=== PATIENT | female | born 1960 | race Caucasian/White ===

== ENCOUNTER 2016-09-22 17:53 | Inpatient (IN) | payer OTHER ==
[~2016-09-22] VITALS: Ht 167.6 cm; Wt 134.3 kg
[2016-09-22 17:53] VITALS: BP 122/73
[~2016-09-22 17:53] MED LIST: ACCUNEB SO1.25 MG/1; ALL DAY ALLERGY10 M3 PO; AZITHROMYCIN 2250 MG PO; B12INJ IM; BENAZEPRIL-HCT1 EA11 PO; CARISOPRODOL 3350 MG PO; CLEOCIN HCL300 MG PO; CYMBALTA60 MG PO; FUROSEMIDE 20 M20 M1 PO; HYDROCODON-ACE1 EAC4 PO; KLOR-CON 1010 MEQ PO; LYRICA100 MG PO; MUCINEX D TABL1 EAC1 PO; NEURONTIN800 MG PO; TUSSIONEX PENN473 ML PO; ULTRAM 50MG TAB50 MG PO; VALIUM5 MG PO; [UNRECOGNIZED DRUG - OTHER]
[2016-09-22 18:52] LABS: ABSOLUTE NEUTROPHILS 9.1 thou/uL (1.4-8.2); BASOPHILS 0.8 % (0.0-2.0); EOSINOPHILS 0.7 % (0.0-3.0); HEMATOCRIT 35.7 % (37.0-47.0); LYMPHOCYTES 22.5 % (24.0-44.0); MCH 31.2 pg (26.0-34.0); MCHC 33.6 g/dL (28.0-37.0); MCV 92.7 fL (80.0-100.0); PLATELET COUNT 482 thou/uL (150-400); RBC 3.85 mil/uL (4.20-5.00); RDW 14.2 % (10.5-14.5); WBC 13.2 thou/uL (4.0-11.0)
[2016-09-22 18:53] LABS: MANUAL DIFF NO
[2016-09-22 19:01] LABS: CREATININE 0.7 mg/dL (0.6-1.3); POTASSIUM 4.6 mmol/L (3.5-5.1)
[2016-09-22 19:06] LABS: ALBUMIN 2.8 g/dL (3.4-5.0); TOTAL BILIRUBIN 0.3 mg/dL (<0.1-1.0); TOTAL PROTEIN 6.8 g/dL (6.4-8.2)
[2016-09-22] MEDS ORDERED: VENTOLIN HFA 1818 GM INH (20:02)
[2016-09-22] MEDS ORDERED: PRILOSEC 10MG C10 MG PO (20:02)
[2016-09-22] MEDS ORDERED: WELLBUTRIN SR150 MG PO (20:03)
[2016-09-22] MEDS ORDERED: CYMBALTA30 MG PO (20:15)
[2016-09-22] MEDS ORDERED: LATUDA60 MG PO (20:15)
[2016-09-22] MEDS ORDERED: METFORMIN HCL500 MG PO (20:16)
[2016-09-22] MEDS ORDERED: LIPITOR 20 MG T20 M1 PO (20:16)
[2016-09-22 20:22] VITALS: BP 105/79
[2016-09-22 23:58] VITALS: BP 116/67
[2016-09-23 03:48] VITALS: BP 111/65
[2016-09-23 05:32] LABS: ABSOLUTE NEUTROPHILS 9.2 thou/uL (1.4-8.2); BASOPHILS 0.2 % (0.0-2.0); HEMATOCRIT 33.8 % (37.0-47.0); HEMOGLOBIN 11.4 gm/dL (12.0-15.0); LYMPHOCYTES 12.7 % (24.0-44.0); MCH 31.3 pg (26.0-34.0); MCHC 33.6 g/dL (28.0-37.0); MCV 93.3 fL (80.0-100.0); MONOCYTES 1.3 % (1.0-8.0); POLYS 85.8 % (36.0-66.0); RBC 3.62 mil/uL (4.20-5.00); RDW 14.2 % (10.5-14.5); WBC 10.7 thou/uL (4.0-11.0)
[2016-09-23 05:34] LABS: PLATELET COUNT 372 thou/uL (150-400)
[2016-09-23 05:37] LABS: MANUAL DIFF NO
[2016-09-23 05:54] LABS: ALBUMIN 2.6 g/dL (3.4-5.0); CALCIUM 8.5 mg/dL (8.5-10.1); CREATININE 0.8 mg/dL (0.6-1.3); MAGNESIUM 1.7 mg/dL (1.8-2.4); POTASSIUM 3.9 mmol/L (3.5-5.1); TOTAL BILIRUBIN 0.3 mg/dL (<0.1-1.0); TOTAL PROTEIN 6.7 g/dL (6.4-8.2)
[2016-09-23 05:55] LABS: URINE BILIRUBIN NEGATIVE (Negative); URINE BLOOD NEGATIVE (Negative); URINE COLOR YELLOW; URINE GLUCOSE-RANDOM* NEGATIVE (Negative); URINE KETONES NEGATIVE (Negative); URINE LEUKOCYTES-REFLEX NEGATIVE (Negative); URINE PROTEIN (DIPSTICK) NEGATIVE (Negative); URINE SPECIFIC GRAVITY <= 1.005 (1.003-1.035); URINE UROBILINOGEN 0.2 E.U./dl (0.2-1.0)
[2016-09-23 08:00] VITALS: BP 120/77
[2016-09-23 12:00] VITALS: BP 106/66
[2016-09-23 16:00] VITALS: BP 116/73
[2016-09-23 20:00] VITALS: BP 123/60
[2016-09-24 00:27] VITALS: BP 131/82
[2016-09-24 03:50] VITALS: BP 119/76
[2016-09-24 07:15] VITALS: BP 123/81
[2016-09-24 11:48] VITALS: BP 139/79
[2016-09-24 15:58] VITALS: BP 146/72
[2016-09-24 20:10] VITALS: BP 120/60
[2016-09-25 04:00] VITALS: BP 133/85
[2016-09-25 08:30] VITALS: BP 133/76
[2016-09-25] MEDS ORDERED: TESSALON PERLE100 MG PO (10:57)
[2016-09-25] MEDS ORDERED: LEVAQUIN 500 M500 M2 PO (10:58)
[2016-09-25 11:08] VITALS: BP 133/76
[2016-09-25 11:26] VITALS: BP 137/85
[2016-09-25 12:06] VITALS: BP 133/76
== END 2016-09-25 13:45 | disposition home or self-care (01) | DRG 871 ==
LOC: ER 17:53 → 4S 19:31 → EROBS 19:31 → 4S 20:23
PROVIDERS: Nurse Practitioner; Physician Assistant
DX: A41.9 Sepsis, unspecified organism (principal); J18.9 Pneumonia, unspecified organism; E44.0 Moderate protein-calorie malnutrition; Z68.42 Body mass index [BMI] 45.0-49.9, adult; E11.40 Type 2 diabetes mellitus with diabetic neuropathy, unspecified; M17.10 Unilateral primary osteoarthritis, unspecified knee; G89.29 Other chronic pain; M54.5 Low back pain; F32.9 Major depressive disorder, single episode, unspecified; I95.9 Hypotension, unspecified; R26.81 Unsteadiness on feet; E78.5 Hyperlipidemia, unspecified; G47.30 Sleep apnea, unspecified; Z90.49 Acquired absence of other specified parts of digestive tract; Z89.512 Acquired absence of left leg below knee; Z89.511 Acquired absence of right leg below knee; Z88.6 Allergy status to analgesic agent; Z88.0 Allergy status to penicillin; Z88.8 Allergy status to other drugs, medicaments and biological substances; Z91.041 Radiographic dye allergy status; Z87.891 Personal history of nicotine dependence; Z82.49 Family history of ischemic heart disease and other diseases of the circulatory system; Z80.9 Family history of malignant neoplasm, unspecified; Z98.84 Bariatric surgery status; Z79.899 Other long term (current) drug therapy
CPT/HCPCS: 10100

== ENCOUNTER 2018-10-09 13:15 | Inpatient (IN) | payer OTHER ==
[~2018-10-09] VITALS: Ht 167.6 cm; Wt 118.0 kg
[~2018-10-09 13:15] MED LIST changes: +CYMBALTA30 MG PO; +LATUDA60 MG PO; +LEVAQUIN 500 M500 M2 PO; +LIPITOR 20 MG T20 M1 PO; -LYRICA100 MG PO; +LYRICA150 MG PO; +METFORMIN HCL500 MG PO; +PRILOSEC 20 MG20 MG PO; +TESSALON PERLE100 MG PO; +VENTOLIN HFA 1818 GM INH; +WELLBUTRIN SR150 MG PO
[2018-10-09 13:22] VITALS: BP 161/94
[2018-10-09 14:00] LABS: ABSOLUTE NEUTROPHILS 7.2 thou/uL (1.4-8.2); BASOPHILS 0.7 % (0.0-2.0); EOSINOPHILS 0.5 % (0.0-3.0); HEMATOCRIT 37.5 % (37.0-47.0); HEMOGLOBIN 12.5 gm/dL (12.0-15.0); LYMPHOCYTES 23.9 % (24.0-44.0); MCH 31.3 pg (26.0-34.0); MCHC 33.4 g/dL (28.0-37.0); MCV 93.8 fL (80.0-100.0); MONOCYTES 6.7 % (1.0-8.0); PLATELET COUNT 360 thou/uL (150-400); POLYS 68.2 % (36.0-66.0); RDW 14.2 % (10.5-14.5); WBC 10.6 thou/uL (4.0-11.0)
[2018-10-09 14:02] LABS: ANION GAP 9 mmol/L (7-16); BUN 23 mg/dL (7-18); CALCIUM 9.5 mg/dL (8.5-10.1); CHLORIDE 98 mmol/L (98-107); CO2 30 mmol/L (21-32); CREATININE 1.1 mg/dL (0.6-1.0); GLUCOSE 150 mg/dL (74-106); POTASSIUM 4.4 mmol/L (3.5-5.1); SODIUM 137 mmol/L (136-145)
[2018-10-09 14:11] LABS: ALBUMIN 3.4 g/dL (3.4-5.0); SGOT 16 U/L (15-37); SGPT 18 U/L (30-65); TOTAL BILIRUBIN 0.2 mg/dL (<0.1-1.0); TOTAL PROTEIN 7.3 g/dL (6.4-8.2); TROPONIN-I <0.06 ng/mL (<0.06)
[2018-10-09 15:31] VITALS: BP 142/88
[2018-10-09] MEDS ORDERED: CYMBALTA30 MG PO (16:15)
[2018-10-09] MEDS ORDERED: LATUDA120 MG PO (16:16)
[2018-10-09] MEDS ORDERED: METFORMIN HCL1000 MG PO (16:16)
[2018-10-09] MEDS ORDERED: NORCO 10-325 T1 EACH PO (16:18)
[2018-10-09] MEDS ORDERED: SYNTHROID125 MC1 PO (16:18)
[2018-10-09] MEDS ORDERED: FLONASE 0.05%50 MCG NASAL (16:21)
[2018-10-09] MEDS ORDERED: VENTOLIN HFA 1818 GM INH (16:21)
[2018-10-09] MEDS ORDERED: PAXIL10 MG PO (16:22)
[2018-10-09] MEDS ORDERED: VITAMIN B-1100 M1 PO (16:30)
[2018-10-09] MEDS ORDERED: FISH OIL 1,001000 M2 (16:30)
[2018-10-09] MEDS ORDERED: CO Q-10200 MG PO (16:31)
[2018-10-09] MEDS ORDERED: NEPHROCAPS SOFT1 CAP PO ×2 (16:31→20:01)
[2018-10-09] MEDS ORDERED: CENTRUM SILVER1 EAC4 PO (16:33)
[2018-10-09] MEDS ORDERED: MELATONIN5 M1 PO (16:34)
[2018-10-09] MEDS ORDERED: ZINC50 MG PO (16:34)
[2018-10-09] MEDS ORDERED: MAGNESIUM400 MG PO (16:34)
[2018-10-09] MEDS ORDERED: DIPHENHIST50 MG PO (16:35)
[2018-10-09 16:56] VITALS: BP 134/79
--- NOTE | 2018-10-09 19:25 | NUR ---
report received from Sarah/rn in er @ 1600. pt received to 3West room 358. pt w/ powerchair & 2 le prostetics at bs. pt on room air and denies soa. pt denies any co of chest pain at this time. pt oriented to room, bed controls, meal times and staff 12 hours shifts. ivf's begun to iv access #20 to rt lateral ac region w/o concern or irritation at this time. pt noted to swallow pills w/o difficulty. pt refused dinner due to not hungry and did not like what was being served. pt requires prescription glasses (her mother brought them to her) to see distance. pt wt obtained and she was informed of current wt, she was happy as she stated she has lost ~30#.
[2018-10-09 20:00] VITALS: BP 126/76
[2018-10-09] MEDS ORDERED: VITAMIN E400 UNIT PO (20:00)
[2018-10-09] MEDS ORDERED: CALCIUM 600 +1 EAC1 PO (20:01)
[2018-10-09] MEDS ORDERED: VITAMIN D5000 UNIT PO (20:02)
[2018-10-09] MEDS ORDERED: TURMERIC500 M2 PO (20:03)
[2018-10-09] MEDS ORDERED: VITAMINC500 PO (20:03)
[2018-10-10 00:05] VITALS: BP 124/80
[2018-10-10 04:18] VITALS: BP 134/79
[2018-10-10 05:50] LABS: ABSOLUTE NEUTROPHILS 6.8 thou/uL (1.4-8.2); BASOPHILS 0.7 % (0.0-2.0); EOSINOPHILS 0.6 % (0.0-3.0); HEMATOCRIT 35.1 % (37.0-47.0); HEMOGLOBIN 11.9 gm/dL (12.0-15.0); LYMPHOCYTES 20.7 % (24.0-44.0); MCH 31.4 pg (26.0-34.0); MCHC 33.9 g/dL (28.0-37.0); MCV 92.4 fL (80.0-100.0); MONOCYTES 7.5 % (1.0-8.0); PLATELET COUNT 306 thou/uL (150-400); POLYS 70.5 % (36.0-66.0); WBC 9.6 thou/uL (4.0-11.0)
--- NOTE | 2018-10-10 05:56 | NUR ---
PT MAKING PROGRESS TOWARDS GOALS. HAS DENIED ANY CHEST PAIN OVERNIGHT. NO SOA REPORTED. O2 AT 1L PER NC PER PT REQUEST FOR SLEEP.
[2018-10-10 05:58] LABS: CALCIUM 9.3 mg/dL (8.5-10.1); CREATININE 0.8 mg/dL (0.6-1.0); MAGNESIUM 1.8 mg/dL (1.8-2.4); POTASSIUM 3.8 mmol/L (3.5-5.1)
[2018-10-10 07:34] VITALS: BP 145/89
--- NOTE | 2018-10-10 08:57 | EKG ---
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: MARCEL : 1960 Requested By: Brittany Berman Order Number: [id number] MD: David Knutson Measurements Intervals [place] Rate: 106 P: AR: QRS: 39 QRSD: 90 T: 19 QT: 330 QTc: 439 Interpretive Statements Sinus tachycardia Atrial premature complexes Compared to ECG 01/11/2002 14:01:41 Atrial premature complexes are now present Electronically Signed On 10-10-2018 8:57:02 CDT by David Knutson [email or web address] ��������������������������������������������� <ELECTRONICALLY SIGNED> ���������������������������������������� By: David Knutson MD, [facility] ��������������������������������������������� 10/10/18 0857 1321 1321 David Knutson MD, FACC /EPI
[2018-10-10] MEDS ORDERED: SYNTHROID125 MC1 PO (09:24)
[2018-10-10] MEDS ORDERED: INGREZZA80 MG PO (09:28)
--- NOTE | 2018-10-10 11:22 | 2DMMODE ---
[facility] [address] [place] [address] 2 D/M-MODE ECHOCARDIOGRAM Name: MARCO FOFANA Room #: 358-P [facility] IN ..#: [id number] ������������� Admission: 10/09/18 ������������� Attend Phys: Jose De Jesus Solano, Discharge: ��� ������������� ��� Date of : 60 Date of Service: 10/10/18 1122 �� Report #: [id number] �������� ��������������������������������������������[id number] THIS REPORT FOR: //name// APPROVED REPORT Study performed: 10/10/2018 09:20:11 EXAM: Comprehensive 2D, Doppler, and color-flow Echocardiogram Patient Location: Bedside Room #: [facility] Status: routine BSA: 2.24 HR: 97 bpm BP: 145/89 mmHg Rhythm: NSR Other Information Study Quality: Technically Limited Technically limited study due to body habitus. Risk Factors: Cardiac Risk Factors: DM Indications Atrial Fibrillation Chest Pain Echo Enhancing Agent Indication: Endocardial border delineation Agent(s) / Amount(s) Used: Optison 3 cc 2D Dimensions LVOT Diam: 20.00 (18-24mm) Ascending Ao: 27.47 (22-36mm) Aortic Root: 30.42 mm Volumes Left Atrial Volume (Systole) Single Plane 4CH: 37.76 mL Single Plane 2CH: 49.13 mL LA ESV Index: 21.00 mL/m2 Aortic Valve AoV Peak Heraclio.: 1.55 m/s AO Peak Gr.: 9.61 mmHg LVOT Max P.47 mmHg LVOT Max V: 1.05 m/s [facility] [place] [address] 2 D/M-MODE ECHOCARDIOGRAM Name: MARCO FOFANA Room #: 358-P [facility] IN .R.#: [id number] ������������� Admission: 10/09/18 ������������� Attend Phys: Jose De Jesus Solano, Discharge: ��� ������������� ��� Date of : 60 Date of Service: 10/10/18 1122 �� Report #: [id number] �������� ��������������������������������������������[id number] CHELA Vmax: 2.15 cm2 Mitral Valve E/A Ratio: 0.7 MV Decel. Time: 191.83 ms MV E Max Heraclio.: 0.71 m/s MV A Heraclio.: 1.04 m/s MV PHT: 55.63 ms IVRT: 65.74 ms TDI E/Lateral E': 5.46 E/Medial E': 7.89 Medial E' Heraclio.: 0.09 m/s Lateral E' Heraclio.: 0.13 m/s Pulmonary Valve PV Peak Heraclio.: 1.11 m/s PV Peak Gr.: 4.89 mmHg Tricuspid Valve RAP Estimate: 7.00 mmHg Left Ventricle The left ventricle is normal size. There is normal LV segmental wall motion. There is normal left ventricular wall thickness. Left ventricular systolic function is normal. The left ventricular ejection fraction is within the normal range. LVEF is 55-60%. Mild diastolic dysfunction is present (impaired relaxation pattern). Right Ventricle The right ventricle is normal size. The right ventricular systolic function is normal. Atria The left atrium size is normal. The right atrium size is normal. Aortic Valve The aortic valve is normal in structure. No aortic regurgitation is present. There is no aortic valvular stenosis. Mitral Valve The mitral valve is normal in structure. There is no mitral valve regurgitation noted. No evidence of mitral valve stenosis. Tricuspid Valve [facility] [address] [place] [address] 2 D/M-MODE ECHOCARDIOGRAM Name: BRIGIDOMARCO S Room #: 358-P ADM IN M.R.#: [id number] ������������� Admission: 10/09/18 ������������� Attend Phys: Jose De Jesus Solano, Discharge: ��� ������������� ��� Date of : 60 Date of Service: 10/10/18 1122 �� Report #: [id number] �������� ��������������������������������������������[id number] The tricuspid valve is normal in structure. There is no tricuspid valve regurgitation noted. Pulmonic Valve Pulmonic valve is not well visualized. There is no pulmonic valvular regurgitation. Great Vessels The aortic root is normal in size. IVC is normal in size and collapses >50% with inspiration. Pericardium There is no pericardial effusion. <Conclusion> The left ventricle is normal size. There is normal left ventricular wall thickness. Left ventricular systolic function is normal. Mild diastolic dysfunction is present (impaired relaxation pattern). The right ventricle is normal size. The left atrium size is normal. The right atrium size is normal. The aortic valve is normal in structure. The mitral valve is normal in structure. There is no tricuspid valve regurgitation noted. ��������������������������������������������� <ELECTRONICALLY SIGNED> ���������������������������������������� By: Clarence Hernandez MD ��������������������������������������������� 10/10/181121 21 21 Clarence Hernandez MD /INF
--- NOTE | 2018-10-10 14:04 | NUR ---
ASSESSMENT: CM REVIEWED CHART AND MET WITH PATIENT AT THE BEDSIDE. PT IS ALERT AND ORIENTED X4. PT WAS ADMITTED WITH NEW ONSET OF AFIB. PT REPORTS SHE LIVES AT HOME WITH HER MOTHER IN A HOUSE. PT REPORTS THAT SHE HAS A RAMP TO ENTER AND NO STEPS ONCE INSIDE. PT HAS A MOTORIZED WHEELCHAIR AND REPORTS THAT SHE IS ABLE TO TRANSFER HERSELF. PT REPORTS HAVING GRAB BARS IN THE SHOWER AND A SHOWER CHAIR AND REPORTS BEING ABLE TO SHOWER INDEPENDENTLY. PT REPORTS SHE HAS HAD HH IN THE PAST AND THINKS IT WAS [facility] BUT IS NOT FOR SURE. CM DISCUSSED ROLE. PT DOES NOT ANTICIPATE HAVING ANY NEEDS AT DISCHARGE. CM WILL CONTINUE TO FOLLOW TO ASSIST NEEDED.
[2018-10-10 16:30] VITALS: BP 120/66
--- NOTE | 2018-10-10 17:16 | NUR ---
PT REQUEST TO USE BEDPAN, NURSE PLACED PT ON BEDPAN WITH CHUX, BEDPAN SUCTIONED TO PT COCCYX LEAVING A LARGE BLOOD BLISTERED/HICKEY PATTERN ON RIGHT CHEEK. PICTURE DOCUMENTED, WOUND CARE NURSE SUSAN SEEN IN HALLWAY, SHOWED HER PICTURE, SHE SAID USE BARRIER CREAM AND NO NEED TO CONSULT WOUND CARE SERVICES AT THIS TIME.
[2018-10-10 20:16] VITALS: BP 110/67
[2018-10-11 04:15] VITALS: BP 101/64
--- NOTE | 2018-10-11 06:22 | NUR ---
PT MAKING PROGRESS TOWARDS GOALS. HAS DENIED ANY CHEST PAIN OVERNIGHT. LORTAB GIVEN FOR GENERALIZED PAIN. SEE CHARTING.
[2018-10-11 07:20] VITALS: BP 107/68
--- NOTE | 2018-10-11 08:20 | EKG ---
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 : 1960 Requested By: David Knutson Order Number: [id number] MD: Ernesto Snow Measurements Intervals [place] Rate: 94 P: 16 AL: 111 QRS: 35 QRSD: 97 T: 19 QT: 348 QTc: 436 Interpretive Statements Sinus tachycardia Atrial premature complex Borderline short AL interval Minimal ST depression Compared to ECG 01/11/2002 14:01:41 Atrial premature complex(es) now present ST (T wave) deviation now present Sinus rhythm no longer present Electronically Signed On 10-11-2018 8:19:56 CDT by Ernesto Snow [email or web address] ��������������������������������������������� <ELECTRONICALLY SIGNED> ���������������������������������������� By: Ernesto Snow MD ��������������������������������������������� 10/11/18 0819 0750 0750 Ernesto Snow MD /EPI
[2018-10-11] MEDS ORDERED: ELIQUIS5 MG PO (12:40)
[2018-10-11] MEDS ORDERED: METOPROLOL SUCC50 MG PO (12:40)
[2018-10-11 14:48] VITALS: BP 107/68
--- NOTE | 2018-10-11 15:27 | NUR ---
ON-GOING ASSESSMENT: PT HAS ORDERS TO DISCHARGE HOME TODAY TO SELF CARE. PTS MOTHER IS PICKING HER UP. PT REPORTED NO NEEDS.
--- NOTE | 2018-10-11 15:32 | NUR ---
Assumed care of patient at 0700. Vitals have been stable. Alert and oriented x4, denies chest pain, SOB, nausea. Does complain of generalized pain, treated with PRN Arthur with good effect. Incontinent of urine, external female catheter in place with adequate urine output. Marilou-care performed; anti-fungal cream applied to pannus and abdominal folds. Repositioning as patient allows, but refuses many turns. Sitting up to eat. Ready to discharge home. Discharge orders received. Reviewed instructions, new prescriptions, instructions about Synthroid, follow up appointments with patient and mother at bedside. Verbalize understanding. IV and telemetry discontinued. Belongings gathered. Home medications returned to patient. Transferred to private motorized wheelchair and transported patient to private vehicle to [place] home.
--- NOTE | 2018-10-11 16:56 | HC ---
[facility] [place] [address] CONSULTATION Name: MARCO FOFANA Room #: 358-P [facility] IN M.R.#: [id number] Admission: 10/09/18 ������������������ Attend Phys: Jose De Jesus Solano MD Discharge: 10/11/18 ������������������ Date of : 60 Report #: [id number] THIS REPORT FOR: //name// CC: [facility] physician/PCP Jose De Jesus Solano Physician staff DATE OF SERVICE: 10/10/2018 ENDOCRINE CONSULTATION The patient of Dr. Solano, [facility], room 358. SUBJECTIVE: A 57-year-old white female admitted for chest pain and new onset atrial fibrillation. 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 It is not clear whether she received post-treatment radioiodine, but she was begun on thyroid replacement at high dose. Apparently, in an attempt to suppress any remaining potential thyroid malignant tissue, the patient has been on 250 mcg of generic L-thyroxine 5 days per week and 125 mcg twice weekly. It is not clear whether what range the prior thyroid function studies have been in or what the attempted level has been. The patient has been on generic replacement rather than brand name replacement, which will make such suppression more difficult. The patient was admitted as mentioned with chest pain and new onset of atrial fibrillation. Thyroid function studies showed a free T4 that was elevated at 1.7 and a TSH that was suppressed at 0.20. The patient is not on any conflicting thyroid substances and has no apparent history of cardiac arrhythmia. OBJECTIVE: LABORATORY DATA: As above. PHYSICAL EXAMINATION: Obese, 57-year-old white female, in no acute distress. Height is stated to be 5 feet 6 inches; however, the patient has prior lower extremity surgery. Weight 260 pounds, heart rate 102 and regular, blood pressure 145/89. The patient is afebrile. There is no ophthalmopathy. There is no tremor of the outstretched hands. The remainder of the exam is euthyroid. The patient is alert and oriented x 3. The neck shows no evidence of palpable thyroid tissue. ASSESSMENT: 1. Thyroid carcinoma, S/P total thyroidectomy with what is apparently an attempt at suppressive replacement with high dose thyroid hormone due to the patient's obesity. [address] [address] CONSULTATION Name: MARCO FOFANA Room #: 358-P [facility] IN .R.#: [id number] Admission: 10/09/18 ������������������ Attend Phys: Jose De Jesus Solano MD Discharge: 10/11/18 ������������������ Date of : 60 Report #: [id number] 2. 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 PLAN: 1. I have discussed all the above with the patient. 2. Will hold all thyroid replacement for several days and reinitiate replacement on Sunday at only 125 mcg per day continuous. The patient will then need thyroid function reevaluated in approximately 6 weeks and dosage adjusted if necessary. 3. There is some limited evidence that high dose thyroid replacement can offer benefit in thyroid replacement; however, now when it causes cardiotoxicity, attempts at aggressive supression should probably not be re-undertaken in the future as long as the patient's thyroid function remains within normal limits. This may be easier to obtain if patient is allowed to have brand name thyroid replacement rather than continued therapy with generics. 4. 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 Thank you very much for this consultation. I will continue to follow the patient with you for evaluation and treatment of thyroid disease. ��������������������������������������������� <ELECTRONICALLY SIGNED> ���������������������������������������� By: Geremias Brewster MD ��������������������������������������������� 10/11/18 1656 1334 0339 Geremias Brewster MD /nt
== END 2018-10-11 15:37 | disposition home or self-care (01) | DRG 309 ==
LOC: ER 13:15 → EROBS 14:21 → 3W 14:21
PROVIDERS: Nurse Practitioner; Physician Assistant; ADMIT Internal Medicine
DX: I48.0 Paroxysmal atrial fibrillation (principal); N17.9 Acute kidney failure, unspecified; I10 Essential (primary) hypertension; E11.40 Type 2 diabetes mellitus with diabetic neuropathy, unspecified; G89.29 Other chronic pain; M17.0 Bilateral primary osteoarthritis of knee; M54.5 Low back pain; F43.10 Post-traumatic stress disorder, unspecified; F31.9 Bipolar disorder, unspecified; F41.9 Anxiety disorder, unspecified; E89.0 Postprocedural hypothyroidism; M79.7 Fibromyalgia; G47.33 Obstructive sleep apnea (adult) (pediatric); F99 Mental disorder, not otherwise specified; T46.2X5A Adverse effect of other antidysrhythmic drugs, initial encounter; E78.5 Hyperlipidemia, unspecified; Z90.49 Acquired absence of other specified parts of digestive tract; Z95.1 Presence of aortocoronary bypass graft; Z89.512 Acquired absence of left leg below knee; Z89.511 Acquired absence of right leg below knee; Z88.0 Allergy status to penicillin; Z88.8 Allergy status to other drugs, medicaments and biological substances; Z88.6 Allergy status to analgesic agent; Z91.041 Radiographic dye allergy status; Z87.891 Personal history of nicotine dependence; Z82.49 Family history of ischemic heart disease and other diseases of the circulatory system; Z80.9 Family history of malignant neoplasm, unspecified; Z85.850 Personal history of malignant neoplasm of thyroid
CPT/HCPCS: 10879

== ENCOUNTER 2018-10-14 06:35 | Emergency (ER) | payer OTHER ==
[~2018-10-14] VITALS: Ht 167.6 cm; Wt 127.0 kg
[~2018-10-14 06:35] MED LIST changes: +CALCIUM 600 +1 EAC1 PO; +CENTRUM SILVER1 EAC4 PO; +CO Q-10200 MG PO; +DIPHENHIST50 MG PO; +ELIQUIS5 MG PO; +FISH OIL 1,001000 M2; +FLONASE 0.05%50 MCG NASAL; +INGREZZA80 MG PO; +LATUDA120 MG PO; +MAGNESIUM400 MG PO; +MELATONIN5 M1 PO; +METFORMIN HCL1000 MG PO; +METOPROLOL SUCC50 MG PO; +NEPHROCAPS SOFT1 CAP PO; +NORCO 10-325 T1 EACH PO; +PAXIL10 MG PO; +SYNTHROID125 MC1 PO; +TURMERIC500 M2 PO; +VITAMIN B-1100 M1 PO; +VITAMIN D5000 UNIT PO; +VITAMIN E400 UNIT PO; +VITAMINC500 PO; +ZINC50 MG PO
[2018-10-14 08:17] VITALS: BP 99/58
== END 2018-10-14 08:17 | disposition home or self-care (01) ==
LOC: ER 06:35
DX: S39.012A Strain of muscle, fascia and tendon of lower back, initial encounter (principal); F41.9 Anxiety disorder, unspecified; E11.40 Type 2 diabetes mellitus with diabetic neuropathy, unspecified; G89.29 Other chronic pain; F31.9 Bipolar disorder, unspecified; M79.7 Fibromyalgia; Z79.01 Long term (current) use of anticoagulants; Z90.49 Acquired absence of other specified parts of digestive tract; Z87.891 Personal history of nicotine dependence; Z88.1 Allergy status to other antibiotic agents; Z88.0 Allergy status to penicillin; Z88.5 Allergy status to narcotic agent; Z91.041 Radiographic dye allergy status; Z88.8 Allergy status to other drugs, medicaments and biological substances; W18.39XA Other fall on same level, initial encounter; Y93.89 Activity, other specified; Y92.89 Other specified places as the place of occurrence of the external cause; Y99.8 Other external cause status

== ENCOUNTER 2019-07-31 12:36 | Inpatient (IN) | payer OTHER ==
[~2019-07-31] VITALS: Ht 167.6 cm; Wt 113.4 kg
--- NOTE | ~2019-07-31 | HC ---
[facility] [place] [address] CONSULTATION Name: MARCO FOFANA Room #: 450-P ADM IN .R.#: [id number] Admission: 07/31/19 Attend Phys: Concha Bonilla MD Discharge: Date of : 60 Report #: [id number] THIS REPORT FOR: cc: [facility] - Family physician unknown [facility] - Family physician unknown Sathya Starr MD ~ CC: [facility] unknown Concha Bonilla WOUND CARE CONSULTATION PERSONAL PHYSICIAN: Dr. Talamantes. CHIEF COMPLAINT: Lumbar spine wound. HISTORY OF PRESENT ILLNESS: This is a 58-year-old white female who lives in a [place], who states she has had a wound on her lower spine for approximately the past 4 months. The patient has been receiving IV antibiotics as well as wound care at her long-term care facility. The patient states that it started having increased odor and drainage in the past couple of days, which prompted them to send her to the Emergency Department and the patient was admitted for evaluation and treatment of this ulcer. The patient states she thinks it started out as a pressure ulcer and then became infected. The patient is fairly debilitated with bilateral bncxr-xbz-wqpe amputations and states she spends most of her time in bed. The patient states she denies any fevers or chills. The patient denies any other associated wounds. The patient states she lost both her legs secondary to osteomyelitis. PAST MEDICAL HISTORY: Significant for diabetes, diabetic neuropathy, chronic low back pain, bilateral guwpl-ktw-wkyk amputations secondary to osteomyelitis, fibromyalgia, bipolar disease, anxiety. CURRENT MEDICATIONS: Multiple. I reviewed the patient's medication list. DRUG ALLERGIES: Include PERCOCET and IV DYE. SOCIAL HISTORY: The patient lives in a long-term care facility, has a remote history of smoking, drinks alcohol socially. FAMILY HISTORY: Not pertinent to current medical condition. REVIEW OF SYSTEMS: CONSTITUTIONAL: The patient denies fevers or chills. NEUROLOGIC: The patient has chronic generalized weakness, but no isolated weakness in arms or legs. EYES: No complaints. ENT: No complaints. [facility] [address] [place] [address] CONSULTATION Name: MARCO FOFANA Room #: 450-[facility] IN M.R.#: [id number] Admission: 07/31/19 Attend Phys: Concha Bonilla MD Discharge: Date of : 60 Report #: [id number] CARDIAC: The patient denies chest pain, palpitations or lower extremity edema. RESPIRATORY: The patient denies shortness of breath, cough or wheezes. GASTROINTESTINAL: The patient denies nausea, vomiting, abdominal pain. GENITOURINARY: The patient denies urgency or frequency. MUSCULOSKELETAL: The patient has chronic back pain. SKIN: There is a chronic ulcer in the upper lumbar region. PHYSICAL EXAMINATION: VITAL SIGNS: Temperature 36.8, pulse 74, respirations 18, BP 128/65. GENERAL: This is an alert and oriented x 3 white female who has extremely flat affect. HEENT: Normocephalic, atraumatic. Mucous membranes are dry. Pupils are round. Sclerae are white. NECK: Supple. BACK: Nontender. LUNGS: Clear. HEART: Regular. BACK: Evaluation of the back reveals an open wound in the upper lumbar region, which is approximately 4 cm deep. There is significant amount of foul-smelling drainage that appears purulent coming from the ulceration. Marilou-wound is somewhat macerated. There is no significant undermining. There does appear to be some tunneling; however, this is the exam is limited secondary to the patient's pain. There is no palpable bone in the base. ABDOMEN: Soft, nontender. EXTREMITIES: The patient moves the upper extremities without difficulty. Lower extremities, patient has bilateral BKAs without any open ulcerations. NEUROLOGIC: Cranial nerves 2-12 grossly intact. Motor and sensory grossly intact. LABORATORY DATA: White count 8.9, hemoglobin 9.1. Sed rate is 52. BUN 13, creatinine 0.7. Albumin 2.5. CT scan of the lumbar region shows soft tissue inflammation and cellulitis along the L1-L3 level with an area of inflammation that measures 5.9 x 3.2 cm consistent with what they call possible early abscess formation. There are no signs of any osteomyelitis. IMPRESSION: 1. Chronic lumbar wound at L1 through L3 consistent with pressure ulcer stage 3, now infected. 2. Diabetes mellitus. 3. Status post bilateral arwzq-rfk-yppa amputations. 4. Protein-calorie malnutrition -- severe with albumin of 2.5. 5. Generalized debility. 6. History of bipolar disease. PLAN: The patient will have a Dakin's quarter strength wet to dry dressings placed within the lumbar wound twice daily. This will be covered with an ABD. [address] [address] CONSULTATION Name: FOFANAMARCO Room #: 450-P ADM IN M.R.#: [id number] Admission: 07/31/19 Attend Phys: Concha Bonilla MD Discharge: Date of : 60 Report #: [id number] General Surgery will be consulted for debridement of the wound. IV antibiotics have been started. We will continue with these at this time. Wound cultures have been obtained. We will maximize the patient's oral protein supplementation for healing. Continue all other current medications. I appreciate the ability to consult. We will continue to follow the patient. By: [id number] [id number] Sathya Starr MD /nt
[2019-07-31 12:45] VITALS: BP 127/77
[2019-07-31 14:13] LABS: HEMOGLOBIN 10.1 gm/dL (12.0-15.0)
[2019-07-31 14:15] LABS: ABSOLUTE NEUTROPHILS 6.8 thou/uL (1.4-8.2); BASOPHILS 0.9 % (0.0-2.0); EOSINOPHILS 2.6 % (0.0-3.0); LYMPHOCYTES 20.2 % (24.0-44.0); MCHC 31.6 g/dL (28.0-37.0); MCV 88.7 fL (80.0-100.0); MONOCYTES 10.2 % (1.0-8.0); PLATELET COUNT 393 thou/uL (150-400); POLYS 66.1 % (36.0-66.0); RBC 3.61 mil/uL (4.20-5.00); RDW 17.3 % (10.5-14.5); WBC 10.2 thou/uL (4.0-11.0)
[2019-07-31 14:16] LABS: CALCIUM 8.6 mg/dL (8.5-10.1); CREATININE 0.9 mg/dL (0.6-1.0); POTASSIUM 3.7 mmol/L (3.5-5.1)
[2019-07-31 14:22] LABS: ALBUMIN 2.5 g/dL (3.4-5.0); TOTAL BILIRUBIN 0.4 mg/dL (<0.1-1.0); TOTAL PROTEIN 6.4 g/dL (6.4-8.2)
--- NOTE | 2019-07-31 18:59 | NUR ---
REPORT GIVEN TO NIGHT RN
[2019-07-31 20:03] VITALS: BP 135/70
[2019-07-31 20:07] VITALS: BP 113/74
[2019-07-31 21:52] VITALS: BP 121/70
--- NOTE | 2019-08-01 02:59 | NUR ---
Pt admitted to room 450 at 2105 for open, purulent wound on back. Pt also has small area of deep tissue injury on right buttock. Pictures taken and placed in chart. Pt is alert, oriented x4. States back wound was an abscess that has been debrided in the past. Drainage is brown and foul smelling. Marilou-area excoriated but not open. Pt was straight cath'd in ED and had 1000 cc in bladder per report. #16 chinese arita cath placed on admit with immediate return of 250 cc dark ella urine. c/o of pain in back and bilateral hands. Nurse practioner notified of inadequate pain control and orders recieved. Pt resting much more comfortably now.
[2019-08-01 06:24] LABS: HEMATOCRIT 28.7 % (37.0-47.0); HEMOGLOBIN 9.1 gm/dL (12.0-15.0); MCH 27.9 pg (26.0-34.0); MCHC 31.5 g/dL (28.0-37.0); MCV 88.6 fL (80.0-100.0); RBC 3.24 mil/uL (4.20-5.00); RDW 17.2 % (10.5-14.5); WBC 8.9 thou/uL (4.0-11.0)
[2019-08-01 06:35] LABS: CREATININE 0.7 mg/dL (0.6-1.0); POTASSIUM 3.6 mmol/L (3.5-5.1)
[2019-08-01 07:12] VITALS: BP 109/64
[2019-08-01 11:52] VITALS: BP 128/65
--- NOTE | 2019-08-01 13:10 | NUR ---
Nutrition: Pt seen for lumbar wound. Hx DM, bilateral BKA, osteomyelitis, cellulitis, diabetic foot ulcer, deep tissue injury on right buttock.Currently 250#, states she has lost 50# intentionally since December 2018 by decreasing portion sizes. Records show pt reported wt of 280# in September 2018. Lives in a facility, has good appetite, eats protein foods at all meals and is knowledgable about importance of protein for wound healing. No wasting noticed. Good BG control at 103-143 mg/dL. Consider to be low nutrition risk.
--- NOTE | 2019-08-01 16:20 | NUR ---
met with patient who is A/Ox4. She admits with foul smell from wound. Patient is ltc at [facility]. She reports she has been at [place] since December. She reports plan to return at [place]. Patient reports she uses w[facility] at facility not a walker. casemgt updated facility via fax information. Casemgt following.
[2019-08-01 19:19] VITALS: BP 119/69
--- NOTE | 2019-08-01 20:07 | NUR ---
Assumed pt care this am, VS stable no signs or verbalizations of distress noted. Wound care and dressing change done. Seen but ID and surgery, scheduled for debriedment on Sunday. Pt is a bilateral BKA with her prosthesis in the room. Q2 turns done through out the shift. Diet and medications are well tolerated. FC in place, draining bright red urine. POC followed, no signs or verbalizations of distress have been noted. Endorsed to the night nurse.
--- NOTE | 2019-08-02 02:42 | NUR ---
PT CARE ASSUMED WITH PT IN BED WATCHING TV AT 1900.PT ALERT AND ORIENTED.PT IS A KENDRICK BKA WITH PROSTHESIS IN HER ROOM.PT HAS A SINGLE LUME PICC LINE ON THE BENOIT .PT C/O OF PAIN AND PAIN MANAGED WITH HYDROCODONE.PT IS ACCUCHECH ACHS .WOUND DRESSING I/C/D.WILL CONTINUE TO MONITOR PER POC
[2019-08-02 07:30] VITALS: BP 125/68
--- NOTE | 2019-08-02 11:05 | NUR ---
Assumed pt care at 7am.Assessment completed.vss.Pt c/o back pain rated 8/10. Pain med given with other am meds with relief.Assisted with tray setup at breakfast,pt has good appetite.Pt in bed resting without further c/o.Will continue to monitor.
[2019-08-02 14:33] VITALS: BP 119/53
[2019-08-02 19:16] VITALS: BP 123/57
[2019-08-03 06:06] LABS: ABSOLUTE NEUTROPHILS 5.2 thou/uL (1.4-8.2); BASOPHILS 0.8 % (0.0-2.0); EOSINOPHILS 3.7 % (0.0-3.0); HEMATOCRIT 30.6 % (37.0-47.0); HEMOGLOBIN 9.5 gm/dL (12.0-15.0); LYMPHOCYTES 19.2 % (24.0-44.0); MCH 27.7 pg (26.0-34.0); MCHC 31.1 g/dL (28.0-37.0); MCV 89.2 fL (80.0-100.0); MONOCYTES 10.2 % (1.0-8.0); PLATELET COUNT 323 thou/uL (150-400); POLYS 66.1 % (36.0-66.0); RBC 3.43 mil/uL (4.20-5.00); RDW 17.8 % (10.5-14.5); WBC 7.9 thou/uL (4.0-11.0)
[2019-08-03 06:16] LABS: APTT 30.4 Seconds (24.5-32.8); PROTIME 10.1 Seconds (9.3-11.4)
[2019-08-03 06:49] LABS: ALBUMIN 2.1 g/dL (3.4-5.0); CALCIUM 8.3 mg/dL (8.5-10.1); CREATININE 0.7 mg/dL (0.6-1.0); MAGNESIUM 2.2 mg/dL (1.8-2.4); TOTAL BILIRUBIN 0.4 mg/dL (<0.1-1.0); TOTAL PROTEIN 5.9 g/dL (6.4-8.2)
--- NOTE | 2019-08-03 06:49 | NUR ---
Pt. rested quietly during the night when checked on during frequent rounds. She did c/o pain to her back and po pain meds given (see emar) with some relief of pain noted. Bed alarm is on.
[2019-08-03 08:51] VITALS: BP 119/62
[2019-08-03 16:14] VITALS: BP 94/55
[2019-08-03 19:27] VITALS: BP 111/59
--- NOTE | 2019-08-04 05:34 | NUR ---
Pt. rested quietly at intervals during the night when checked on during frequent rounds. She c/o back pain and was given po pain meds (see emar) with some relief noted. Pt. turned and repositioned for comfort. Bed alarm is on.
[2019-08-04 10:53] VITALS: BP 118/105
[2019-08-04 15:00] VITALS: BP 113/59
[2019-08-04 19:39] VITALS: BP 105/59
--- NOTE | 2019-08-04 20:43 | NUR ---
PT A&OX4, VSS, PAIN AT LOWER BACK. PATIENT HAD I&D TODAY, SURGEON STATES DO NOT TOUCH DRESSING UNTIL WOUND CARE SEES PATIENT ON 08/05. DRESSING C/D/I. NO SIGNS OF DISTRESS. WILL CONTINUE TO MONITOR.
--- NOTE | 2019-08-05 02:14 | NUR ---
ASSUMED CARE OF PT AT 1900HRS. PT IS AOX4 AND LETS NEEDS BE KNOWN. FALL PRECAUTION IN PLACE. PT IS POST OP DAY 0. POST OP DRESSSING IS C/D/I. PT PUT ON 1.5L O2 VIA NC AT POST OP AND IS CONTINUED. [place] IN PLACE AND IS PATIENT. ABX TREATMENT CONTINUED. PT REPORTED SOME PAIN AND WAS TREATED WITH PRN PAIN MEDS. PT WAS ABLE TO GET COMFORTABLE AND SLEEP PART OF THE SHIFT. VSS AND NO S/S OF ACUTE DISTRESS. WILL CONTINUE TO MONITOR.
[2019-08-05 07:56] VITALS: BP 111/55
--- NOTE | 2019-08-05 10:36 | NUR ---
Received awake on bed. Due medications given as prescribed, able to swallow meds w/o difficulty. On O2 at 1lpm via nasal cannula. A+Ox4. On regular diet- tolerating well; no nausea, no vomiting and no abdominal pain noted. On blood sugar monitoring- taken and recorded accordingly, with sliding scale insulin prescribed. With arita in place- draining well- output measured and recorded accordingly. With L upper arm single lumen PICC line- intact and flushing well. S/P I&D 07/04, dressing in place, with orders from surgeon to keep dressing in place until Wound team sees patient. With Bilateral BKA, assisted in ADLs. Falls bundles in place.
[2019-08-05 14:14] VITALS: BP 106/61
--- NOTE | 2019-08-05 14:37 | NUR ---
PT IS POST OP DAY 1 FROM I&D. CARE TEAM INDICATED THAT PT IS PROGRESSING TOWARD GOAL OF DC. IT IS ANTICPATED THAT PT WILL DO SKILLED AT [facility] ONCE MEDICALLY STABLE. CLINICAL UPDATES SENT TO FACILITY TODAY. CM TO FOLLOW INDICATED WITH DC PLANNING.
--- NOTE | 2019-08-05 15:44 | NUR ---
WOUND CONSULT; ROUNDING WITH DR VARNER AND SUSAN. THE BACK ABCESS WOUND WAS SURGICALLY DEBRIDED AND CLEAN ENOUGH FOR VAC THERAPY. NO S/S OF INFECTION. RECOMMENDATION; BEGIN VAC THERAPY TODAY PER DR VARNER. AT 125MMHG,CONTINUOUS,BRIDGE XL DISCUSSED WITH JENY
[2019-08-05 19:29] VITALS: BP 99/55
--- NOTE | 2019-08-06 01:32 | NUR ---
PT IS A/O X4.PT CARE ASSUMED WITH PT WATCHING TV.PT HAS A PICC LINE SINGLE LUMEN ON THE BENOIT .PT HAS A WOUND VAC IN PLACE ON BACK PUT FOR BACK ABCESS AFTER I$D.PT C/O PAIN AND HAS SCHEDULED PAIN MEDICATIONA ND HYDROCODONE FOR PAIN MANAGEMENT.PT HAS A MONTAGUE CATHETER .PT IS ACCUCHECK ACHS.WILL CONTINUE TO MONITOR PER POC
[2019-08-06 07:20] VITALS: BP 106/61
--- NOTE | 2019-08-06 12:51 | NUR ---
PT A&OX4, VSS, PAIN IN LOWER BACK. WOUND VAC AND DRESSING ON BACK C/D/I. WOUND VAC RUNNING AT ORDERED RATE, SEROUS DRAINAGE COLLECTED. NO SIGNS OF DISTRESS. WILL CONTINUE TO MONITOR.
[2019-08-06 20:25] VITALS: BP 110/59
--- NOTE | 2019-08-07 03:43 | NUR ---
Pt. rested quietly at intervals during the night when checked on during frequent rounds. She has been given po pain meds (see emar) for c/o back pain with some relief noted. Wound vac is intact to back. Bed alarm is on.
[2019-08-07 07:35] VITALS: BP 105/65
[2019-08-07] MEDS ORDERED: MIRALAX17 GM PO (11:50)
[2019-08-07] MEDS ORDERED: COLACE 100 MG100 MG PO (11:50)
[2019-08-07] MEDS ORDERED: MILK OF MA2400 MG/11 PO (11:50)
[2019-08-07] MEDS ORDERED: NORCO 10-325 T1 EACH PO (11:50)
[2019-08-07] MEDS ORDERED: METFORMIN HCL500 MG PO (11:50)
--- NOTE | 2019-08-07 12:05 | NUR ---
TOMASZ reviewed chart and spoke with nursing and attending physician. Pt is medically stable for discharge back to [facility] today. Will need insurance authorization. PT/OT ordered today to evaluate pt. habitat conservation planner to fax updates. Facility has not submitted for insurance authorization. Will fax therapy evals when available. TOMASZ is following to assist as needed with discharge planning.
[2019-08-07 14:46] VITALS: BP 98/59
--- NOTE | 2019-08-07 17:45 | NUR ---
FAXED CLINICAL UPDATE TO [facility] SPOKE WITH ADM FIGUEROA SHE RECEIVED UPDATE. DP TO FOLLOW.
[2019-08-07 19:32] VITALS: BP 90/60
--- NOTE | 2019-08-07 20:42 | NUR ---
PT A&OX4, VSS, PAIN IN BACK. WOUND VAC RUNNING AT 125, SEROUS DRAINAGE, DRESSING TO BACK C/D/I. NO SIGNS OF DISTRESS. WILL CONTINUE TO MONITOR.
--- NOTE | 2019-08-08 02:58 | NUR ---
Pt. rested quietly at intervals during the night when checked on during frequent rounds. She does c/o back pain and pain meds given (see emar) with some relief noted. Wound vac is dry and intact to her back. Bed alarm is on.
[2019-08-08 08:00] VITALS: BP 109/66
--- NOTE | 2019-08-08 11:19 | NUR ---
Received awake on bed. Due medications given as prescribed, able to swallow meds w/o difficulty. On O2 at 1lpm via nasal cannula- weaning him off. Vital signs stable. On carb controlled diet- tolerating well; no nausea, no vomiting and no abdominal pain noted. On blood sugar monitoring- taken and recorded accordingly; with sliding scale insulin prescribed. With L upper arm PICC line in place- dressing C/D/I, seen by IV nurse this AM. With wound at back- wound vac in place-output measured and recorded accordingly. With arita in place- output measured and recorded accordingly. Possible discharge back to facility today. a/w order and CM instructions re: discharge. Falls bundle in place. Pt refusing to be turned on her sides. Complained of pain, due PRN pain medications given as prescribed.
--- NOTE | 2019-08-08 12:13 | NUR ---
TOMASZ reviewed chart and spoke with nursing and attending physician. Pt is medically stable for discharge to [facility]. party planner faxed clinical/therapy updates to [facility]. Pt will need IV abx at the facility. TOMAZS discussed with ID physician. Awaiting insurance authorization at this time. TOMASZ is following to assist as needed with discharge planning.
[2019-08-08 15:00] VITALS: BP 95/63
--- NOTE | 2019-08-08 15:15 | NUR ---
PT DISCHARGING TODAY TO [facility] FOR [facility]TC FAXED DC ORDERS/SUMMARY TO FACILITY SPOKE WITH MIKE SHE RECEIVED ORDERS AND DOES NOT HAVE A STRETCHER VAN TO TRANSPORT SO ARRANGED TRANSPORT BY STRETCHER VAN WITH [facility] TRIP #[id number] PT WILL NOTIFY FAMILY OF DC AND TIME OF TRANSPORT. UNIT NOTIFIED AND CHART COPY PER US. RN TO CALL REPORT TO [phone].
[2019-08-08] MEDS ORDERED: MOXIFLOXACIN H400 MG PO ×2 (16:20→16:21)
[2019-08-08] MEDS ORDERED: CLEOCIN HCL150 MG PO (16:20)
[2019-08-08] MEDS ORDERED: CULTURELLE KID1 EAC1 PO (16:20)
[2019-08-08 18:53] VITALS: BP 105/53
== END 2019-08-08 19:13 | DRG 853 ==
LOC: ER 12:36 → EROBS 15:58 → 4W 15:58
PROVIDERS: Internal Medicine; Physician Assistant; ADMIT Internal Medicine
PROC: 0KBF0ZZ Excision of Right Trunk Muscle, Open Approach (ICD-10-PCS; principal; 2019-08-04)
PROC: 0KD Muscles, Extraction (ICD-10-PCS; principal; 2019-08-04)
PROC: 0HR6XK3 Replacement of Back Skin with Nonautologous Tissue Substitute, Full Thickness, External Approach (ICD-10-PCS; principal; 2019-08-04)
PROC: 0KBG0ZZ Excision of Left Trunk Muscle, Open Approach (ICD-10-PCS; principal; 2019-08-04)
PROC: 0KDG0ZZ Extraction of Left Trunk Muscle, Open Approach (ICD-10-PCS; principal; 2019-08-04)
DX: A41.1 Sepsis due to other specified staphylococcus (principal); L89.143 Pressure ulcer of left lower back, stage 3; L89.133 Pressure ulcer of right lower back, stage 3; E43 Unspecified severe protein-calorie malnutrition; L03.312 Cellulitis of back [any part except buttock and flank]; L02.212 Cutaneous abscess of back [any part, except buttock and flank]; Z68.41 Body mass index [BMI] 40.0-44.9, adult; M17.0 Bilateral primary osteoarthritis of knee; M79.7 Fibromyalgia; F31.9 Bipolar disorder, unspecified; F43.10 Post-traumatic stress disorder, unspecified; F41.9 Anxiety disorder, unspecified; F60.3 Borderline personality disorder; S31.000A Unspecified open wound of lower back and pelvis without penetration into retroperitoneum, initial encounter; X58.XXXA Exposure to other specified factors, initial encounter; R53.81 Other malaise; E11.42 Type 2 diabetes mellitus with diabetic polyneuropathy; G89.4 Chronic pain syndrome; K59.00 Constipation, unspecified; E66.01 Morbid (severe) obesity due to excess calories; M48.061 Spinal stenosis, lumbar region without neurogenic claudication; M51.27 Other intervertebral disc displacement, lumbosacral region; Z98.84 Bariatric surgery status; Z90.49 Acquired absence of other specified parts of digestive tract; Z89.512 Acquired absence of left leg below knee; Z89.511 Acquired absence of right leg below knee; Z79.899 Other long term (current) drug therapy; Z91.041 Radiographic dye allergy status; Z88.6 Allergy status to analgesic agent; Z88.0 Allergy status to penicillin; Z88.8 Allergy status to other drugs, medicaments and biological substances; Y93.89 Activity, other specified; Y92.89 Other specified places as the place of occurrence of the external cause; Y99.8 Other external cause status; Z82.49 Family history of ischemic heart disease and other diseases of the circulatory system; Z80.8 Family history of malignant neoplasm of other organs or systems; Z87.891 Personal history of nicotine dependence
CPT/HCPCS: 10040; 50010; 50101; 50386; 50403; 57119; 57120; 57192; 62110; 62900; 70005

== ENCOUNTER → 2019-09-03 | Outpatient (CLI) | payer OTHER ==
[~2019-09-03] MED LIST changes: +CLEOCIN HCL150 MG PO; +COLACE 100 MG100 MG PO; +CULTURELLE KID1 EAC1 PO; +MILK OF MA2400 MG/11 PO; +MIRALAX17 GM PO; +MOXIFLOXACIN H400 MG PO
== END ==
LOC: HYPER 13:48
DX: T81.31XA Disruption of external operation (surgical) wound, not elsewhere classified, initial encounter (principal); E11.622 Type 2 diabetes mellitus with other skin ulcer; L98.422 Non-pressure chronic ulcer of back with fat layer exposed; L02.212 Cutaneous abscess of back [any part, except buttock and flank]; E11.40 Type 2 diabetes mellitus with diabetic neuropathy, unspecified; M54.5 Low back pain; E43 Unspecified severe protein-calorie malnutrition; E11.69 Type 2 diabetes mellitus with other specified complication; M86.9 Osteomyelitis, unspecified; M17.0 Bilateral primary osteoarthritis of knee; I48.91 Unspecified atrial fibrillation; F41.9 Anxiety disorder, unspecified; F31.9 Bipolar disorder, unspecified; Z68.39 Body mass index [BMI] 39.0-39.9, adult; Z79.4 Long term (current) use of insulin; Z91.81 History of falling; Z87.891 Personal history of nicotine dependence; Z98.84 Bariatric surgery status; Z89.511 Acquired absence of right leg below knee; Z89.512 Acquired absence of left leg below knee; Y83.8 Other surgical procedures as the cause of abnormal reaction of the patient, or of later complication, without mention of misadventure at the time of the procedure; Y92.89 Other specified places as the place of occurrence of the external cause

== ENCOUNTER 2019-12-22 15:56 | Inpatient (IN) | payer OTHER ==
[~2019-12-22] VITALS: Ht 170.2 cm; Wt 94.3 kg
[~2019-12-22 15:56] MED LIST changes: -AVIDOXY100 MG PO; -BACTRIM DS TAB1 EACH PO; -MELATONIN5 MG PO; -PERCOCET PO; -VITAMIN D325 MC1 PO
[2019-12-22 16:03] VITALS: BP 106/47
[2019-12-22 17:06] LABS: CALCIUM 8.2 mg/dL (8.5-10.1); CREATININE 0.8 mg/dL (0.6-1.0); POTASSIUM 3.9 mmol/L (3.5-5.1)
[2019-12-22 17:12] LABS: TOTAL BILIRUBIN 0.2 mg/dL (0.2-1.0); TOTAL PROTEIN 6.1 g/dL (6.4-8.2)
[2019-12-22] MEDS ORDERED: INGREZZA80 MG PO (17:16)
[2019-12-22] MEDS ORDERED: MELATONIN5 MG PO (17:19)
[2019-12-22] MEDS ORDERED: CYMBALTA60 MG PO (17:20)
[2019-12-22 18:32] LABS: ABSOLUTE NEUTROPHILS 6.7 thou/uL (1.4-8.2); BASOPHILS 0.6 % (0.0-2.0); EOSINOPHILS 2.9 % (0.0-3.0); HEMATOCRIT 31.2 % (37.0-47.0); HEMOGLOBIN 10.1 gm/dL (12.0-15.0); LYMPHOCYTES 26.1 % (24.0-44.0); MCH 28.2 pg (26.0-34.0); MCHC 32.5 g/dL (28.0-37.0); MCV 86.7 fL (80.0-100.0); MONOCYTES 6.1 % (1.0-8.0); PLATELET COUNT 480 thou/uL (150-400); POLYS 64.3 % (36.0-66.0); RDW 18.1 % (10.5-14.5); WBC 10.4 thou/uL (4.0-11.0)
[2019-12-22 19:39] VITALS: BP 105/60
[2019-12-22 19:42] VITALS: BP 105/60
[2019-12-22 19:51] VITALS: BP 97/56
[2019-12-22 20:10] VITALS: BP 105/63
--- NOTE | 2019-12-23 00:07 | NUR ---
PT WAS ADMITTED TO THE UNIT FROM THE ER AT 1999 IN A STABLE CONDITION. ADMISSION HX,EDUCATION AND ASSESSMENT CPMPLETED.PT C/O GEN PAIN,MANAGED WITH MED.PT HAS WOUND ON HER BUTTOCK AND SACRUM.PT IS KENDRICK BKA.MRI IN THE AM,PAPER FILLED OUT AND FAXED.PT WILL BE NPO AT MS FOR POSSIBLE SURGICAL INTERVENTION.BG AT HSWA 113.REPORT GIVEN TO CARLEEN FERMIN AT 2300.
--- NOTE | 2019-12-23 03:14 | NUR ---
ASSUMED PT CARE AT 2300. PT A&OX4, ADMISSION COMPLETED. PICTURES OF WOUNDS TAKEN AND PUT IN CHART. WOUNDS DRESSED WET TO DRY UNTIL DR CAN SEE THEM. PT WANTS TO BE ON HER BACK AND DOES NOT LIKE TO BE REPOSITIONED. NPO SINCE MIDNIGHT FOR POSSIBLE SURGICAL INTERVENTION TOMORROW. PT CURRENTLY RESTING IN BED WITH EYES CLOSED, WILL CONTINUE TO MONITOR.
[2019-12-23 04:55] VITALS: BP 112/65
[2019-12-23 05:58] LABS: HEMATOCRIT 28.2 % (37.0-47.0); HEMOGLOBIN 8.8 gm/dL (12.0-15.0); MCH 27.4 pg (26.0-34.0); MCHC 31.1 g/dL (28.0-37.0); MCV 87.9 fL (80.0-100.0); RBC 3.21 mil/uL (4.20-5.00); RDW 18.2 % (10.5-14.5); WBC 8.3 thou/uL (4.0-11.0)
[2019-12-23 06:10] LABS: CREATININE 0.5 mg/dL (0.6-1.0); MAGNESIUM 1.9 mg/dL (1.8-2.4); POTASSIUM 3.4 mmol/L (3.5-5.1)
[2019-12-23 06:21] LABS: PROTIME 10.6 Seconds (9.3-11.4)
[2019-12-23 08:00] VITALS: BP 101/56
--- NOTE | 2019-12-23 12:48 | NUR ---
ORDERS RECEIVED FOR EVAL AND TREAT. Pt HAS BEEN BEDRIDDEN FOR 7-8 MONTHS DUE TO WOUNDS AND DOES NOT GET INTO WHEELCHAIR. USED MECHANICAL LIFT PRIOR TO THAT. Pt IS NOT A CANDIDATE FOR THERAPY IN THE ACUTE SETTING DUE TO NO FUNCTIONAL GOALS.
--- NOTE | 2019-12-23 15:06 | NUR ---
ASSESSMENT: CM REVIEWED CHART AND SPOKE WITH PATIENT. 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 PT USES A WHEELCHAIR FOR AMBULATION DUE TO BEING A BILATER AMPUTEE. PT HAS SACRAL DECUB ULCERS AND IS NEEDING A COLOSTOMY TO HELP WITH HEALING. PT REPORTS SHE PLANS ON GOING BACK TO [facility] ONCE MEDICALLY STABLE. CM FAXED CLINICAL TO [facility]. CM WILL CONTINUE TO FOLLOW TO ASSIST NEEDED.
[2019-12-23 15:50] VITALS: BP 108/64
--- NOTE | 2019-12-23 18:28 | NUR ---
PT A&0X4. IV INTACT IN L FA INFUSING ANTIBIOTICS. NIKO LOVING NOTED. WOUND CARE AND DR. MANDEL IN TO SEE PT TODAY AND SHE WILL HAVE DEBRIDEMENT TOMORROW. PT ON CLEAR LIQUID DIET AT THIS TIME WILL BE NPO AFTER MN. CALL LIGHT W/I REACH, BED ALARM IS ON. WILL CONT POC.
[2019-12-23 20:10] VITALS: BP 96/63
[2019-12-24] VITALS (8 sets, daily range): BP systolic 92–106; BP diastolic 44–63
--- NOTE | 2019-12-24 02:58 | NUR ---
ASSESSED AT START OF SHIFT. PT A&OX4. IV INTACT AND ABX GIVEN. WOUND DRESSING DONE AND PAIN MED GIVEN. PT NPO AT MIDNIGHT FOR DEBRIDEMENT IN THE AM. KENDRICK BKA NOTED. FALL PREC IN PLACE AND CALL LIGHT IN REACH WILL CONT WITH POC TILL EOS.
[2019-12-24 22:38] LABS: HEMOGLOBIN 8.8 gm/dL (12.0-15.0); MCH 27.5 pg (26.0-34.0); MCHC 31.3 g/dL (28.0-37.0); MCV 87.6 fL (80.0-100.0); RBC 3.19 mil/uL (4.20-5.00); RDW 17.9 % (10.5-14.5); WBC 16.2 thou/uL (4.0-11.0)
[2019-12-24 23:19] LABS: APTT 33.3 Seconds (24.5-32.8); PROTIME 10.2 Seconds (9.3-11.4)
[2019-12-25 00:38] VITALS: BP 103/61
--- NOTE | 2019-12-25 03:05 | NUR ---
12/24/19 1900 ASSUMED CARE OF PT AFTER BEDSIDE REPORT, DRESSING TO SACRAL SURGICAL SITE REINFORCED SECONDARY TO BLEEDING, WILL RECHECK, PT STATES PAIN HAS BEEN CONTROLLED WELL WITH PAIN MEDS, COLOSTOMY SITE WITH SMALL AMOUNT OF SANGUINOUS DRAINAGE IN OSTOMY BAG, OTHERWISE STOMA IS PINK, AND ABDOMEN IS PAINFUL TO PALPATION, PAINFUL WITH REPOSITIONING, 0 DR MANDEL AND Anthony Ornelas NOTIFIED OF PT SATURATION OF REINFORCED DRESSING, AND SBP<100, ORDERS RECEIVED AND CARRIED OUT, WILL CONTINUE TO MONITOR. 2230 KERLIX PL[address]ED TO SACRAL WOUND AND ABDS APPLIED WITH TAPE PER DR ORDER, AFTER SURGICAL DRSG REMOVED. 2330 DRSG TO SACRAL WOUND C/D/I, WILL CONTINUE TO MONITOR
[2019-12-25 04:46] VITALS: BP 106/57
[2019-12-25 06:19] LABS: ABSOLUTE NEUTROPHILS 10.8 thou/uL (1.4-8.2); EOSINOPHILS 0.9 % (0.0-3.0); LYMPHOCYTES 13.3 % (24.0-44.0); MCH 27.3 pg (26.0-34.0); MONOCYTES 7.1 % (1.0-8.0); PLATELET COUNT 354 thou/uL (150-400); POLYS 77.7 % (36.0-66.0); RBC 2.95 mil/uL (4.20-5.00); WBC 13.9 thou/uL (4.0-11.0)
[2019-12-25 06:53] LABS: CALCIUM 7.9 mg/dL (8.5-10.1); CREATININE 0.6 mg/dL (0.6-1.0); POTASSIUM 4.1 mmol/L (3.5-5.1)
--- NOTE | 2019-12-25 09:36 | NUR ---
OSTOMY CARE; POUCH INTACT, NO STOOL YET, SMALL AMT BLOODY DRAINAGE, STOMA RED, VIABLE BUDDED, ALERT, RECEPTIVE TO EDUCATION, INFO AND SUPPLIES AT BS, WILL FOLLOW PRN RECOMMENDATIONS; CHELA APPLIANCE CUT TO FIT, CHANGE Q3-5 DAYS AND PRN, ADAPT RING UNDER WAFER SN AWARE
[2019-12-25 10:30] VITALS: BP 113/51
--- NOTE | 2019-12-25 14:34 | NUR ---
FAXED CLINICAL UPDATE TO [facility] SPOKE WITH BRITTANY IN ADM THAT PT MIGHT POSS DC OVER WEEKEND. DP TO FOLLOW.
--- NOTE | 2019-12-25 14:59 | NUR ---
ASSUMED CARE OF THE PT AT 0700. PT IS ON BEDREST, IS A KENDRICK BKA. Q2 TUNRS DONE UNLESS PT REFUSES. OSTOMY INTACT AND SEEN BY OSTOMY NURSE. SACRUM AND MID BACK WOUND DRESSINGS CHANGED WITH MINIMUM DRAINAGE, PICTURES TAKEN. PAIN CONTROLLED BY PAIN MEDS, SEE EMAR. MONTAGUE INTACT. 2.0L NC O2. BS CHECKS AC/HS. FALL PRECAUTIONS IN PLACE, BED IN THE LOWEST POSITION AND CALL LIGHT IS WITHIN REACH. WILL CONTINUE TO MONITOR THE PT.
[2019-12-25 15:11] VITALS: BP 100/59
[2019-12-25 16:20] VITALS: BP 162/97
--- NOTE | 2019-12-25 17:07 | PATH ---
[facility] [address] [place] [address] PATHOLOGY RPT PROCEDURE Name: MARCO ANTOINE Room #: 447-P ADM IN M.R.#: [id number] Admission: 12/22/19 Date of : 60 Discharge: Report #: [id number] Path Case #: [id number] [facility] Accession Number: [id number] . 01 Material submitted: . PART A: sacrum - SACRAL TISSUE PART B: sacrum - SACRAL BONE . 01 Clinical history: . Sacral decubitus ulcer . 02 Diagnosis: A. Sacral tissue, debridement: - Fragments of skin and subcutaneous tissue associated with ulceration, fibrinoid degeneration and marked acute inflammation. . B. Bone, sacral bone, debridement: - Fragments of bone showing acute osteomyelitis in association with granulation tissue. (IUV:lisette; 12/25/2019) QMS 12/25/2019 1412 Local . 02 Electronically signed: . Ling Mosqueda MD, Pathologist NPI- [id number] . 01 Gross description: . A. The specimen is received in formalin, labeled "Marco Antoine sacral tissue". Received is an excision of pale israel skin with attached underlying fibroadipose tissue measuring 10.1 x 6.6 x 4.4 cm in greatest dimensions. There is a circular defect within the skin measuring 4.3 x 2.8 cm. The skin immediately surrounding this defect is pink-israel and irregular in contour. Sectioning reveals yellow-israel, lobulated to white, fibrous cut surfaces. The specimen is submitted representatively in cassette A1. . B. The specimen is received in formalin, labeled "Marco Antoine sacral bone". Received are multiple segments of friable light brown bone admixed with pale israel tissue measuring 4.2 x 3.0 x 0.6 cm in aggregate dimensions. The specimen is submitted representatively in cassette B1, following light decalcification. (CAA; 12/24/2019) QAC/QAC 12/25/2019 1410 Local . 02 Pathologist provided ICD-10: L98.499 . [address] [place] [address] PATHOLOGY RPT PROCEDURE Name: MARCO ANTOINE Room #: 447-P ADM IN M.R.#: [id number] Admission: 12/22/19 Date of : 60 Discharge: Report #: [id number] Path Case #: [id number] [facility] . [id number] Specimen Comment: A courtesy copy of this report has been sent to [phone], [phone] Specimen Comment: [phone] Specimen Comment: Report sent to / DR SANDOVAL Performed at: [address], [place], [place] [id number] MD John Dyer MD Phone: [phone] Performed at: [address] [id number] MD Ling Mosqueda MD Phone: [phone]
[2019-12-25 20:45] VITALS: BP 106/58
--- NOTE | 2019-12-26 02:21 | NUR ---
ASSUMED PT CARE AT APPROX 1900.PT WAS OBSERVED SITTING UP IN HER BED WATCHING TV AT START OF SHIFT.PT C/O PAIN ,MANAGED WITH MED.IV ABX ADMINISTERED ORDERED.COLOSTOMY TO R SIDE WITH YELLOWISH SMALL OUTPUT.PT SLEEPING ON HER BED AT THIS TIME.DRSG TO HER SACRUM REINFORCED.FALL PRECAUTIONS IN PLACE,CALL LIGHT WITHIN REACH.
[2019-12-26 04:00] VITALS: BP 102/61
[2019-12-26 05:38] LABS: HEMATOCRIT 22.3 % (37.0-47.0); HEMOGLOBIN 7.2 gm/dL (12.0-15.0); MCH 28.1 pg (26.0-34.0); MCHC 32.1 g/dL (28.0-37.0); MCV 87.5 fL (80.0-100.0); RBC 2.54 mil/uL (4.20-5.00); RDW 17.7 % (10.5-14.5); WBC 8.7 thou/uL (4.0-11.0)
[2019-12-26 06:01] LABS: CALCIUM 7.7 mg/dL (8.5-10.1); CREATININE 0.5 mg/dL (0.6-1.0); MAGNESIUM 1.8 mg/dL (1.8-2.4)
[2019-12-26 06:15] LABS: POTASSIUM 3.1 mmol/L (3.5-5.1)
[2019-12-26 07:57] VITALS: BP 98/48
--- NOTE | 2019-12-26 09:52 | NUR ---
OSTOMY CARE; POUCH EDGES LOOSE, LARGE AMT MUSHY BROWN STOOL NOTED, PERISTOMAL SKIN INTACT, STOMA PINK VIABLE BUDDED, RECEPTIVE TO EDUCATION, NEW POUCH CHELA 2 PIECE SYSTEM APPLIED W/ ADAPT RING UNDER WAFER, SUPPLIES AND INFO AT BS RECOMMENDATIONS; CHANGE POUCH Q3-4 DAYS AND PRN, USE CHELA 2 PIECE SYSTEM W/ ADAPT RING UNDER WAFER TRANSPORT SPECIALIST AWARE
--- NOTE | 2019-12-26 13:09 | NUR ---
ASSUMED CARE OF THE PT AT 0700. PT IS DEPENDENT. R AC DRY AND INTACT. PAIN CONTROLLED BY PAIN MEDS, SEE EMAR. WOUNDS ARE CHANGED BY WOUND CARE, SEE EMAR. BS CONTROLLED WITH INSULIN SEE EMAR. PT CANNOT D/C TO [facility] TOMORROW, PLASE CALL GLENN AT [facility]. KENDRICK BKA, NO SCD'S, OSTOMY INTACT/CHANGE BY OSTOMY NURSE. MONT[place]UE INTACT. FALL PRECAUTIONS IN PLACE, BED IN THE LOWEST POSITION AND CALL LIGHT IS WITHIN REACH. WILL CONTINUE TO MONITOR THE PT.
[2019-12-26 16:27] VITALS: BP 104/48
[2019-12-26 20:10] VITALS: BP 94/53
--- NOTE | 2019-12-26 21:22 | NUR ---
PT WAS ASLEEP AT START OF SHIFT.PT REPOSITIONED WHILE IN BED.PT HAS KENDRICK BKA.AIR LOSS MATTRESS IN PLACE.DRSG TO HER SACRUM SOILED,CHANGED.PT ON 2L/NC BC SHE DESATS ON RA.PAIN CONTROLLED WITH MED.PT RESTING ON HER BED AT THIS TIME.FALL PRECAUTIONS IN PLACE,CALL LIGHT WITHIN REACH.
[2019-12-27 04:52] VITALS: BP 96/58
[2019-12-27 05:54] LABS: HEMOGLOBIN 7.2 gm/dL (12.0-15.0); MCH 27.6 pg (26.0-34.0); MCHC 31.3 g/dL (28.0-37.0); MCV 88.3 fL (80.0-100.0); RBC 2.6 mil/uL (4.20-5.00); RDW 17.8 % (10.5-14.5); WBC 7.4 thou/uL (4.0-11.0)
[2019-12-27 06:07] LABS: CREATININE 0.5 mg/dL (0.6-1.0); POTASSIUM 3.7 mmol/L (3.5-5.1)
[2019-12-27 07:36] VITALS: BP 80/42
[2019-12-27 08:56] VITALS: BP 95/40
--- NOTE | 2019-12-27 09:05 | NUR ---
ASSUMED CARE OF THE PT AT 0700. PTS BP WAS LOW, GAVE BREAKFAST AND FLUIDS AND IS SLOWLY COMING BACK UP, HELD MEDICATION, SEE EMAR. Q2 TURNS. NO SCD'S, PT IS KENDRICK BKA. OSTOMY INTACT, MONTAGUE INTACT, BOTH WITH OUTPUT. PAIN CONTROLLED BY PAIN MEDS, SEE EMAR. PTS VANCO TROUGH IS 17, PER PHARMACY CAN BE GIVEN. FALL PRECAUTIONS IN PLACE, BED IN THE LOWEST POSITION AND CALL LIGHT IS WITHIN REACH. WILL CONTINUE TO MONITOR THE PT.
[2019-12-27 12:05] VITALS: BP 102/55
[2019-12-27 13:14] VITALS: BP 104/42; BP 104/47; BP 106/51
[2019-12-27 21:45] VITALS: BP 120/60
--- NOTE | 2019-12-28 03:32 | NUR ---
PT'S TRAVIS SALAZAR AT 17 NOW,PHARMACY NOTIFIED OK TO CONT WITH CURRENT DOSE PER PHARMACY.PT REF REPOSITIONING AT [facility] STATED THAT SHE WAS COMFORTABLE.PT C/O PAIN ON HER ABD AND SACRUM,MANAGED WITH MED.DRSG ON HER SACRUM CHANGED.COLOSTOMY IN PLACE AND INTACT.PT RESTING ON HER BED AT THIS TIME.FALL PRECAUTIONS IN PLACE,CALL LIGHT WITHIN REACH.
[2019-12-28 05:40] LABS: HEMATOCRIT 25.4 % (37.0-47.0); HEMOGLOBIN 8.2 gm/dL (12.0-15.0); MCHC 32.1 g/dL (28.0-37.0); MCV 87.5 fL (80.0-100.0); RBC 2.91 mil/uL (4.20-5.00); RDW 17.6 % (10.5-14.5); WBC 8.7 thou/uL (4.0-11.0)
[2019-12-28 06:15] VITALS: BP 115/73
[2019-12-28 16:29] VITALS: BP 104/54
[2019-12-28 20:10] VITALS: BP 106/63
--- NOTE | 2019-12-28 20:44 | NUR ---
ASSUMED PATIENT CARE AT 0700. PT ALERT X ORIENTED X4.2L/O2/NC/. BILATERAL BKA. ACHS. Q X 2X TURNS. IV RT AC. WOUND DRESSING ON THE BACK CHANGED TODAY. MONTAGUE AND COLOSTOMY IN PLACE. PT WAS COMPLAINING OF PAIN AND PAIN PARTIALLY RELIEVED BY PAIN MEDS. SHIFT REPORT GIVEN TO CARLEEN
--- NOTE | 2019-12-29 00:33 | NUR ---
ASSUMED PT CARE AT 1900. PT IS A&OX4. PAIN BEING MANAGED WITH IV AND PO PAIN MEDS. MONTAGUE IN PLACE WITH GOOD OUTPUT. Q2 TURNS BEING PROVIDED. ANTIBIOTICS GIVEN PER ORDER. NO OTHER SIGNIFICANT CHANGES THUS FAR, WILL CONTINUE TO MONITOR.
[2019-12-29 03:30] VITALS: BP 107/59
[2019-12-29 07:35] VITALS: BP 102/57
--- NOTE | 2019-12-29 07:50 | HC ---
[facility] [place] [address] CONSULTATION Name: MARCO FOFANA Room #: 447-P ADM IN .R.#: [id number] Admission: 12/22/19 Attend Phys: Nahum Ramon MD Discharge: Date of : 60 Report #: [id number] THIS REPORT FOR: cc: [facility] - Family physician unknown [facility] - Family physician unknown Guillermo Duong MD ~ CC: [facility] unknown Nahum Ramon DATE OF SERVICE: 12/28/2019 INFECTIOUS DISEASE CONSULTATION ATTENDING PHYSICIAN: Dr. Ramon. REASON FOR EVALUATION: My recommendation for antibiotic therapy. HISTORY OF PRESENT ILLNESS: Chart reviewed, the patient examined. This is a 59-year-old woman with fairly significant medical history given her age and has bilateral knee amputations. She has got chronically present sacral decubitus ulcer, who was admitted from her care facility on 12/22/2019 due to worsening appearance of her wound, felt to have increasing inflammation and subsequent abscesses. It is noted that it previously had been surgically debrided. She had been treated with a diverting colostomy. Previously, she has been on various courses of antibiotics including trimethoprim, sulfamethoxazole as well as ciprofloxacin. She has extensive allergies to beta-lactam antibiotics. She had operative debridement. Cultures had polymicrobial growth including from the abscess Acinetobacter baumannii group, group G strep, Proteus mirabilis as well as corynebacterium. Second culture had Staph epi. Bone culture had Parvimonas, which was formerly a peptostreptococcus. She has been on broad-spectrum antimicrobial therapy with meropenem and vancomycin. At this point, she does admit to pain. She is not overtly toxic. Denies any pulmonary or gastrointestinal related complaints. She states her appetite has been reasonably good. She has been afebrile, does have a mild degree of encephalopathy. ALLERGIES: CONTRAST DYE, CEPHALOSPORINS, PENICILLINS, MORPHINE, ASPARTAME, OXYCODONE. CURRENT MEDICATIONS: Include apixaban, pregabalin, duloxetine, metoprolol, loratadine, levothyroxine, Risperdal, cholecalciferol, famotidine, meropenem, metformin, atorvastatin, and albuterol inhaler. PAST MEDICAL HISTORY: As described above, diabetes mellitus complicated by peripheral neuropathy, bilateral lower extremity kgbnf-nfz-ftfc amputations, chronic back pain, chronic sacral decubitus ulcer, depression, fibromyalgia, [address] [place] [address] CONSULTATION Name: MARCO FOFANA Room #: 447-P [facility] IN .R.#: [id number] Admission: 12/22/19 Attend Phys: Nahum Ramon MD Discharge: Date of : 60 Report #: [id number] bipolar disease, PTSD, anxiety, borderline personality disorder. SOCIAL HISTORY: Former smoker, 2 packs a day. No illicit drug use. Previous history, but no longer ethanol use. FAMILY HISTORY: Noncontributory. REVIEW OF SYSTEMS: Otherwise, unremarkable 10-point review of systems. PHYSICAL EXAMINATION: GENERAL: She appears somewhat chronically ill, undernourished. She is pleasant, cooperative. Has apparent dyskinesia involving her mouth. HEENT: Normocephalic. Extraocular muscles intact. NECK: Supple. VITAL SIGNS: Temperature 98.3, pulse 78, respirations 18, blood pressure 104/54. SKIN: Warm, dry. LUNGS: Diminished breath sounds. HEART: Regular. I do not appreciate any murmur. ABDOMEN: Soft, nontender, nondistended. EXTREMITIES: No cyanosis. She has got bilateral yczzt-bkl-tmrz amputations, well healed. LABORATORY DATA: Cultures described above from the abscess with polymicrobial growth including group G strep, Acinetobacter, Proteus and corynebacterium. Second culture described as coag-negative Staph, specifically Staph epidermidis and bone culture with Parvimonas micra. Blood cultures sterile thus far. CBC: White count of 8.7, H and H 8.2 and 25.4, platelets of 347. Electrolytes from the 11/27/2019, sodium 136, potassium 3.7, chloride 103, bicarbonate is 32, anion gap of 1, BUN and creatinine 10 and 0.5, glucose of 105. ASSESSMENT: Chronic sacral decubitus ulcer in a patient that has been longstanding. Post-debridement appears to have chronic osteomyelitis, need to arrange for parenteral therapy. In all likelihood, she has got several factors against her. It is not clear how malnourished she is. I suspect to some degree, offloading is likely an issue and the lack of movement due to bilateral mdbgc-qza-jtfw. We will likely need to arrange PICC line work in concert with the wound care physician. We will await susceptibilities to ideally further narrow our treatment regimen given there may be multiple resistant organisms. <ELECTRONICALLY SIGNED> By: Guillermo Duong MD 12/29/19 0750 1720 0014 Guillermo Duong MD /nt
--- NOTE | 2019-12-29 08:00 | HC ---
[facility] [place] [address] CONSULTATION Name: MARCO FOFANA Room #: 447-P ADM IN .R.#: [id number] Admission: 12/22/19 Attend Phys: Nahum Ramon MD Discharge: Date of : 60 Report #: [id number] THIS REPORT FOR: cc: FAM - Family physician unknown FAM - Family physician unknown Bo Alcala MD ~ CC: [facility] unknown Nahum Ramon DATE OF SERVICE: 12/23/2019 CHIEF COMPLAINT: Sacral and low back pressure ulcerations. HISTORY OF PRESENT ILLNESS: This is a 59-year-old female patient who was admitted through the Emergency Department. She was originally seen in the Wound Clinic yesterday with chronic ulcerations and they have become increasingly infected. It was recommended that she be admitted for colostomy as well as surgical debridement and has been admitted to the hospital. She has some pain associated with these at this time. PAST MEDICAL HISTORY: Prior history of osteomyelitis, depression, diabetes, peripheral neuropathy, bipolar disorder, borderline personality disorder, and history of thyroid cancer. SOCIAL HISTORY: The patient has a history of 30-ytbt-iuhc smoking history. No drug use. She is a resident at [facility]. FAMILY HISTORY: Positive for coronary artery disease. ALLERGIES: CONTRAST DYE, KEFLEX, MORPHINE, PENICILLIN, ASPARTAME, OXYCODONE. MEDICATIONS: Include MiraLax, [place], Glucophage, Eliquis, metoprolol, docusate, milk of magnesia, and clindamycin. REVIEW OF SYSTEMS: Somewhat limited due to the patient's level of alertness, uncooperativeness, most positive issues are detailed in the history of present illness. Other systems are negative or unobtainable in a 14-point review of systems. PHYSICAL EXAMINATION: VITAL SIGNS: At this time include temperature 36.7, pulse 76, respiratory rate 18, and blood pressure 101/56. GENERAL: This is a chronically ill-appearing female patient who appears to be in minimal distress. HEENT: Head normocephalic. Nose and throat clear. NECK: Supple. [facility] [address] [place] [address] CONSULTATION Name: MARCO FOFANA Room #: 447-P ADM IN M.R.#: [id number] Admission: 12/22/19 Attend Phys: Nahum Ramon MD Discharge: Date of : 60 Report #: [id number] ABDOMEN: Soft. Bowel sounds present. EXTREMITIES: Sacral region and low back demonstrates what appears to be a chronic stage 4 pressure ulcer of the lower back as well as chronic stage 4 pressure ulceration to the sacrum and left buttock. These are very close to one another. CLINICAL IMPRESSION: 1. Diabetes mellitus type 2. 2. Hypertension. 3. Bilateral below-knee amputations. 4. Generalized debility. 5. Severe protein-calorie malnutrition with albumin 2.0. RECOMMENDATIONS: At this point in time, we will recommend a Dakin's, moist dry dressing daily and p.r.n., low air loss mattress every 2 hour turning and positioning. Dr. Martines has been consulted for surgical debridement as well as diverting colostomy. She will need aggressive nutritional and PEG tube has been discussed as well. The patient is agreeable to the debridement and diverting colostomy. Uncertain about the PEG tube. We advised the need for aggressive nutrition to maximize wound healing. Additional decision making will be forthcoming. We have discussed also the possibility of a wound VAC. The patient states that she does not wish to have a wound VAC as they have been difficult for her in the past in terms of getting them to stay in place. Once again, we will address this following her surgery and certainly abide by her wishes, although I think that may be a beneficial treatment, especially when she has had a diverting colostomy. <ELECTRONICALLY SIGNED> By: Bo Alcala MD 12/29/19 0800 1703 [id number] Bo Alcala MD /nt
[2019-12-29] MEDS ORDERED: PERCOCET PO (08:19)
[2019-12-29] MEDS ORDERED: AVIDOXY100 MG PO (08:28)
--- NOTE | 2019-12-29 09:03 | NUR ---
OSTOMY CARE; POUCH EDGES SOILED, CHANGED USING 2 PIECE SYSTEM CHELA CUT TO FIT, STOMA PINK VIABLE BUDDED W/ LOOSE BROWN STOOL NOTED, ALERT, COOPERATIVE, ENCOURAGED TO LET NURSES KNOW WHEN APPLIANCE NEEDS EMPTYING, ADAPT RING APPLIED UNDER WAFER, PERISTOMAL SKIN INTACT, INFO AND SUPPLIES AT BS RECOMMENDATIONS; CHANGE POUCH Q 3-4 DAYS AND PRN, EMPTY WHEN 1/3-1/2 FULL STAFFF RN AWARE
[2019-12-29 14:27] VITALS: BP 93/45
--- NOTE | 2019-12-29 17:27 | NUR ---
[facility] not accepting of pt at this time after numerous attempts to explain that pt is medially stable and appropriate for for return. referral sent to [facility] per facility and pt request.
--- NOTE | 2019-12-29 19:26 | NUR ---
ASSUMED CARE OF THE PT AT 0700. PT IS BEDREST. PAIN CONTROLLED BY PAIN MEDS, SEE EMAR. BS WITHIN NORMAL LIMITS. MONTAGUE INTACT/ COLOSTOMY INTACT. PT ON 2.0L NC O2. WOUNDS CHANGED, MINIMAL DRAINAGE. R AC DRY AND INTACT. FALL PRECAUTIONS IN PLACE, BED IN THE LOWEST POSITION AND CALL LIGHT IS WITHIN REACH. BED ALARM ON. WILL CONTINUE TO MONITOR THE PT.
[2019-12-29 20:33] VITALS: BP 102/55
[2019-12-30 03:11] VITALS: BP 96/55
[2019-12-30 08:00] VITALS: BP 98/60
--- NOTE | 2019-12-30 08:07 | NUR ---
ASSUMED PT CARE AT 1900. PT A&OX4. C/O OF PAIN 02/01, MANAGED WITH PO AND IV PAIN MEDS. ANTIBIOTICS INFUSING PER ORDER. REPOSITIONING PROVIDED. MONTAGUE PATENT WITH GOOD OUTPUT. NO SIGNIFICANT CHANGES OVERNIGHT.
[2019-12-30 08:42] VITALS: BP 98/60
[2019-12-30] MEDS ORDERED: VITAMIN D325 MC1 PO (14:43)
[2019-12-30] MEDS ORDERED: BACTRIM DS TAB1 EACH PO (14:43)
--- NOTE | 2019-12-30 14:55 | NUR ---
ASSUMED CARE OF THE PT AT 0700. PT IS ON BED REST. PAIN CONTROLLED BY PAIN MEDS, SEE EMAR. TITRATED OFF OF 2.0L NC AND SATS WERE 88%, REAPPLIED 2.0L NC TO PT. R AC DRY AND INTACT. DRESSING CHANGES FOR WOUNDS ON BACK, WOUND CARE TEAM SAW PT, MONTAGUE/ COLOSTOMY INTACT, WITH OUTPUT. ACCUCHEKS AC/HS. FALL PRECAUTIONS IN PLACE, BED IN THE LOWEST POSITION/BED ALARM ON, CALL LIGHT IS IWTHIN REACH. WILL CONTINUE TO MONITOR THE PT.
--- NOTE | 2019-12-30 15:18 | NUR ---
ADMISSIONS AT [facility] INDICATED THAT THEY CAN ACCEPT PT BACK TODAY THEIR THERAPY IS BACK IN HOUSE. SHE INDICATED THEY HAVE AUTH FOR PT TO RETURN. CHART COPY ORDERED. ORDERS AND NEGATIVE COVID TEST FAXED. CM ARRANGED [facility] TRANSPORT THROUGH [facility] BETWEEN [id number]. REPORT TO BE CALLED TO . PT AND MOTHER AWARE. NO OTHER CM INTERVENTION INDICATED. CASE CLOSED.
== END 2019-12-30 17:51 | DRG 853 ==
LOC: ER 15:56 → EROBS 19:10 → 4S 19:10
PROVIDERS: Nurse Practitioner Family; Physician Assistant; Surgery; ADMIT Internal Medicine; ATTEND Internal Medicine
DX: A41.9 Sepsis, unspecified organism (principal); L89.324 Pressure ulcer of left buttock, stage 4; L89.154 Pressure ulcer of sacral region, stage 4; E43 Unspecified severe protein-calorie malnutrition; I48.0 Paroxysmal atrial fibrillation; M54.9 Dorsalgia, unspecified; F31.9 Bipolar disorder, unspecified; F41.9 Anxiety disorder, unspecified; E11.43 Type 2 diabetes mellitus with diabetic autonomic (poly)neuropathy; F43.10 Post-traumatic stress disorder, unspecified; I10 Essential (primary) hypertension; E89.0 Postprocedural hypothyroidism; G89.4 Chronic pain syndrome; D64.9 Anemia, unspecified; E78.5 Hyperlipidemia, unspecified; K66.0 Peritoneal adhesions (postprocedural) (postinfection); Z88.0 Allergy status to penicillin; Z88.5 Allergy status to narcotic agent; Z91.041 Radiographic dye allergy status; Z79.01 Long term (current) use of anticoagulants; Z03.818 Encounter for observation for suspected exposure to other biological agents ruled out; Z90.49 Acquired absence of other specified parts of digestive tract; Z85.828 Personal history of other malignant neoplasm of skin; Z89.512 Acquired absence of left leg below knee; Z89.511 Acquired absence of right leg below knee; Z87.891 Personal history of nicotine dependence; Z68.32 Body mass index [BMI] 32.0-32.9, adult
CPT/HCPCS: 10100; 10195; 50010; 50101; 50249; 50290; 50386; 50403; 50555; 50558; 50740; 50962; 52265; 53307; 54022; 54118; 56462; 56524; 56525; 56526; 57092; 57119; 57120; 57192; 62110; 62900; 70005

== ENCOUNTER → 2019-12-22 | Outpatient (CLI) | payer OTHER ==
[~2019-12-22] MED LIST changes: +AVIDOXY100 MG PO; +BACTRIM DS TAB1 EACH PO; +MELATONIN5 MG PO; +PERCOCET PO; +VITAMIN D325 MC1 PO
== END ==
LOC: HYPER 13:54
PROVIDERS: ATTEND Emergency Medicine
DX: T81.31XD Disruption of external operation (surgical) wound, not elsewhere classified, subsequent encounter (principal); E11.622 Type 2 diabetes mellitus with other skin ulcer; L89.154 Pressure ulcer of sacral region, stage 4; L98.491 Non-pressure chronic ulcer of skin of other sites limited to breakdown of skin; L89.323 Pressure ulcer of left buttock, stage 3; L98.411 Non-pressure chronic ulcer of buttock limited to breakdown of skin; L98.426 Non-pressure chronic ulcer of back with bone involvement without evidence of necrosis; L02.212 Cutaneous abscess of back [any part, except buttock and flank]; E11.40 Type 2 diabetes mellitus with diabetic neuropathy, unspecified; E43 Unspecified severe protein-calorie malnutrition; E11.69 Type 2 diabetes mellitus with other specified complication; M86.9 Osteomyelitis, unspecified; M17.0 Bilateral primary osteoarthritis of knee; M54.5 Low back pain; G89.29 Other chronic pain; I48.91 Unspecified atrial fibrillation; F31.9 Bipolar disorder, unspecified; F41.9 Anxiety disorder, unspecified; Z87.828 Personal history of other (healed) physical injury and trauma; Z68.39 Body mass index [BMI] 39.0-39.9, adult; Z87.891 Personal history of nicotine dependence; Z79.4 Long term (current) use of insulin; Y83.8 Other surgical procedures as the cause of abnormal reaction of the patient, or of later complication, without mention of misadventure at the time of the procedure

== ENCOUNTER 2020-07-15 21:08 | Inpatient (IN) | payer OTHER ==
[~2020-07-15] VITALS: Ht 152.4 cm; Wt 90.7 kg
--- NOTE | ~2020-07-15 | HC ---
[facility] [place] [address] CONSULTATION Name: MARCO FOFANA Room #: 455-P ADM IN M.R.#: [id number] Admission: 07/15/20 Attend Phys: Roosevelt Gallego MD Discharge: Date of : 60 Report #: [id number] THIS REPORT FOR: cc: [facility] - Clinic physician unknown [facility] - Clinic physician unknown Bo Alcala MD ~ DATE OF SERVICE: 07/16/2020 CHIEF COMPLAINT: Both sacral and mid back pressure ulceration. HISTORY OF PRESENT ILLNESS: This is a 59-year-old female patient who presented to the hospital from [facility]. She has a history of osteomyelitis to her T-spine and sacrum with the pressure ulcers in those areas. She was admitted here in 12/2019, did undergo surgical debridement. She has had persisting osteomyelitis of the sacral region and is admitted for further wound care. She has already been seen by General Surgery who plans for surgical debridement of the wound and bone during this hospitalization. PAST MEDICAL HISTORY: Positive for history of chronic osteomyelitis, chronic pressure ulcerations as described above, depression, diabetes, peripheral neuropathy, anxiety, bipolar disorder, personality disorder, degenerative joint disease, fibromyalgia, thyroid cancer and a prior below-knee amputations. She has had previous cholecystectomy. SOCIAL HISTORY: The patient denies alcohol use. She is a previous smoker. No recreational drug use. She is currently a resident at [facility]. FAMILY HISTORY: Positive for heart disease. ALLERGIES: CONTRAST DYE, PENICILLIN, AND ASPARTAME. CURRENT MEDICATIONS: Polyethylene glycol, metformin, oxycodone, apixaban, metoprolol, cholecalciferol, sulfa. REVIEW OF SYSTEMS: CONSTITUTIONAL: The patient denies fever, chills or weight loss. NEUROLOGICAL: The patient denies focal weakness, numbness or tingling. EYES: The patient denies visual changes, redness, or drainage. ENT: The patient denies earache, nasal drainage or sore throat. CARDIOVASCULAR: The patient denies chest pain, palpitation or diaphoresis. PULMONARY: The patient denies cough or shortness of breath. GASTROINTESTINAL: The patient denies nausea, vomiting, diarrhea or abdominal pain. ORTHOPEDIC: The patient is aware of the ulcer on her sacrum and back, has [address] [address] CONSULTATION Name: MARCO FOFANA Room #: 455-P [facility] IN [facility].#: [id number] Admission: 07/15/20 Attend Phys: Roosevelt Gallego MD Discharge: Date of : 60 Report #: [id number] moderate pain associated with those. She has had prior bilateral below-knee amputations. Other systems in a 14-point review of systems are negative. PHYSICAL EXAMINATION: VITAL SIGNS: Include temperature 36.8, pulse 68, respiratory rate of 17, blood pressure 98/68. GENERAL: This is a chronically ill-appearing female patient who appears to be in no distress. HEENT: Head is normocephalic. Nose and throat clear. NECK: Supple. LUNGS: Clear. HEART: Regular rate and rhythm. ABDOMEN: Soft, bowel sounds present. BACK: The mid back demonstrates a pressure ulceration to the T-spine region. It is clean, healthy, granulating showing some evidence of new epithelization. Sacral ulceration is also relatively healthy, clean, granulating. It is a little bit deeper than the one on the back. I cannot palpate bone at this time. NEUROLOGIC: The patient is alert and moving all 4 extremities spontaneously. LABORATORY DATA: Include sodium 139, potassium 4.2, chloride 106, CO2 of 25, BUN 16, creatinine 0.5, glucose 100. White blood cell count 9.4, the hemoglobin 7.5. She is COVID-19 positive; she also tested positive and had mild symptoms approximately 30 days ago. CLINICAL IMPRESSION: 1. Stage 3 pressure ulcer of the T-spine. 2. Stage 2 pressure ulcer of the sacrococcygeal region. 3. Osteomyelitis of the sacrum and coccyx. 4. Borderline personality disorder. 5. Diabetes mellitus. 6. Morbid obesity. 7. Prior bilateral below-knee amputations. RECOMMENDATIONS: At this point in time, we will recommend simple dressing changes with a quarter strength Dakin's moist gauze and the ABD to be changed once daily. The patient is scheduled for surgery with Dr. Martines in the next several days. She is agreeable to a wound VAC to the sacral ulceration once surgery has been completed. She will need low air loss surface with q. 2 hour turning and repositioning, aggressive nutritional support. I appreciate being asked to see her in consultation. By: [id number] Bo Alcala MD /nt
[~2020-07-15 21:08] MED LIST changes: +AVIDOXY100 MG PO; +BACTRIM DS TAB1 EACH PO; +MELATONIN5 MG PO; +PERCOCET PO; +VITAMIN D325 MC1 PO
[2020-07-15 21:09] VITALS: BP 90/36
[2020-07-15 22:13] VITALS: BP 90/36
[2020-07-15 22:18] LABS: ABSOLUTE NEUTROPHILS 5.2 thou/uL (1.4-8.2); BASOPHILS 0.8 % (0.0-2.0); EOSINOPHILS 1.5 % (0.0-3.0); HEMOGLOBIN 8.4 gm/dL (12.0-15.0); LYMPHOCYTES 27.6 % (24.0-44.0); MCH 24.1 pg (26.0-34.0); MCHC 31.1 g/dL (28.0-37.0); MCV 77.7 fL (80.0-100.0); MONOCYTES 7.9 % (1.0-8.0); PLATELET COUNT 347 thou/uL (150-400); POLYS 62.2 % (36.0-66.0); RBC 3.48 mil/uL (4.20-5.00); WBC 8.4 thou/uL (4.0-11.0)
[2020-07-15 22:49] LABS: CALCIUM 8.3 mg/dL (8.5-10.1); CREATININE 0.5 mg/dL (0.6-1.0); POTASSIUM 3.7 mmol/L (3.5-5.1)
[2020-07-15 22:56] LABS: ALBUMIN 1.7 g/dL (3.4-5.0); TOTAL BILIRUBIN 0.6 mg/dL (0.2-1.0); TOTAL PROTEIN 5.5 g/dL (6.4-8.2)
[2020-07-15 23:26] VITALS: BP 90/36
[2020-07-15 23:51] VITALS: BP 101/53
[2020-07-16 00:39] VITALS: BP 102/60
--- NOTE | 2020-07-16 02:41 | NUR ---
PT ADMITTED INTO THE UNIT WITH C/O COCCYX WOUND THAT IS INFECTED AND PT IS FROM [facility].PT IS A/O X4.PT IS ON BEDREST AND BLE BKA.PT IS ACCUCHECK ACHS WITH SSI.BLOOD SUGAR WAS 62 AND GLUCOSE TABLET GIVEN AND BLOOD SUGAR RECHECK AND WAS 72.PT ALSO HAD A SNACK PACK.PT ALSO ADMITTED FOR PLACEMENT OF PICC LINE.IV ACCESS ON RT AC WITH NS AT 75CC/HR.PT C/O AND PAIN MANAGED WITH HYDROCODONE.WILL CONTINUE TO MONITOR PER POC
[2020-07-16 04:09] VITALS: BP 88/53
[2020-07-16 05:55] LABS: RBC 3.19 mil/uL (4.20-5.00)
[2020-07-16 05:58] LABS: HEMATOCRIT 25.3 % (37.0-47.0); HEMOGLOBIN 7.5 gm/dL (12.0-15.0); MCH 23.7 pg (26.0-34.0); MCHC 29.8 g/dL (28.0-37.0); MCV 79.5 fL (80.0-100.0); WBC 9.4 thou/uL (4.0-11.0)
[2020-07-16 06:13] LABS: CALCIUM 8.1 mg/dL (8.5-10.1); CREATININE 0.5 mg/dL (0.6-1.0); POTASSIUM 4.2 mmol/L (3.5-5.1)
--- NOTE | 2020-07-16 06:29 | NUR ---
Pt is okay to remain on 4W as she has a hx of previous positive in April per Larry Nugent RN.
[2020-07-16 07:59] VITALS: BP 98/68
--- NOTE | 2020-07-16 08:34 | NUR ---
OSTOMY CARE; POUCH EDGES LOOSE, PT DID NOT BRING OSTOMY SUPPLIES TO HOSP, CHANGED POUCH USING 2 PIECE SYSTEM CHELA CUT TO FIT, ADAPT RING APPLIED UNDER WAFER, STOMA PINK VIABLE BUDDED W/ SOFT BROWN STOOL, PERISTOMAL SKIN INTACT, PT ALERT, COOPERATIVE, SUPPLIES PLACED AT BS RECOMMENDATIONS; CHANGE POUCH Q 3-5 DAYS AND PRN, EMPTY PRN RACK LOADER AWARE
--- NOTE | 2020-07-16 13:19 | NUR ---
Pt DISCHARGED FROM ACUTE PHYSICAL THERAPY. STATES SHE HAS NOT BEEN OUT OF BED IN MONTHS AND HAS NO INTENTION OF PARTICIPATING IN PHYSICAL THERAPY DURING HER STAY. WANTS TO LEAVE SOON POSSIBLE.
--- NOTE | 2020-07-16 13:42 | NUR ---
FAXED CLINICAL UPDATE TO [facility] RECEIVED CONFIRMATION AND LEFT MSG WITH BRITTANY IN ADM. DP TO FOLLOW.
[2020-07-16 16:09] VITALS: BP 111/69
--- NOTE | 2020-07-16 16:11 | NUR ---
PT ADMITTED RLATED TO [facility], DECUB SACRAM, AND DECUB THORACIC. CM REVIEWED CHART AND SPOKE WITH CARE TEAM CM CALLED AND SPOKE WITH PT OVER THE PHONE THIS DAY. PT INDICATED THAT SHE RESIDES LTC PT AT [facility]. PT INDICATED THAT SHE IS BED BOUND AT [facility]. PT INDICATED THAT SHE ANTICIPATES RETURNING TO [facility] MEDICALLY ST[facility]. IT IS ANTICPATED THAT PT WILL BE HAVING A DEBRIDEMNT DURING THIS DAY. PT IS ON IV ABX. CM TO FOLLOW INDICATED WITH DC PLANNING. NO WEEKEND DC ANTICPATED.
--- NOTE | 2020-07-16 16:15 | NUR ---
4FRSLPICC PLACED LUABRACHIAL WITH THE TIP IN THE SVC AND RELEASED FOR USE. PLEASE SEE NI FOR DETAILS
[2020-07-16 20:01] VITALS: BP 94/62
--- NOTE | 2020-07-16 20:05 | NUR ---
PT A&OX4, VSS, PAIN IN BACK. PAIN MEDICATION GIVEN. PICC LINE PLACED. UNABLE TO COMPLETE WOUND CARE AND LET ONCOMING NIGHT NURSE KNOW. NO SIGNS OF DISTRESS. WILL CONTINUE TO MONITOR.
--- NOTE | 2020-07-17 04:39 | NUR ---
ASSUMED CARE OF PT AT 1900. PT IS A/O X4 AND IS ON BED REST. ROOM AIR. MONTAGUE IN PLACE AND DRAINING LIGHT YELLOW URINE. COLOSTOMY IN PLACE AND DRAINING BROWN STOOL. THERE WAS REDNESS UNDER THE SITE OF THE COLOSTOMY NOTED WELL IN THE LEOBARDO AREA. DRSGS TO MID THORACIC BACK AND SACRUM CHANGED. C/O PAIN. PRN PAIN MEDICATION GIVEN DIRECTED. FALL PRECAUTIONS IMPLEMENTED, CALL LIGHT IS WITHIN REACH. WILL CONTINUE TO MONITOR.
[2020-07-17 05:50] LABS: HEMOGLOBIN 6.9 gm/dL (12.0-15.0); RBC 2.94 mil/uL (4.20-5.00); WBC 5.9 thou/uL (4.0-11.0)
[2020-07-17 05:51] LABS: HEMATOCRIT 22.9 % (37.0-47.0); MCH 23.5 pg (26.0-34.0); MCHC 30.2 g/dL (28.0-37.0); MCV 77.9 fL (80.0-100.0); RDW 19.5 % (10.5-14.5)
[2020-07-17 06:00] LABS: CALCIUM 7.6 mg/dL (8.5-10.1); CREATININE 0.5 mg/dL (0.6-1.0); POTASSIUM 4.2 mmol/L (3.5-5.1)
[2020-07-17 07:58] VITALS: BP 102/67
--- NOTE | 2020-07-17 12:29 | NUR ---
Received awake on bed. Due medications given as prescribed, able to swallow meds w/o difficulty. On room air. Vital signs stable. On MS, not on telemetry; no complains and signs of chest pain, crushing sensation and heaviness. On regular diet, tolerating well; no nausea, no vomiting and no abdominal pain noted. On blood sugar monitoring, taken and recorded accordingly. With colostomy in place, output measured and recorded accordingly. With arita in place, draining well; output measured and recorded accordingly. Bilat BKA- stump fully healed. With NS at 100cc/hr, infusing well at L upper arm PICC line; dressing C/D/I. Complained of pain, due PRN meds given as prescribed. With wound at back and sacrum- dressing in place; possible I&D next week. To continue monitoring patient. Assisted in ADLs.
--- NOTE | 2020-07-17 15:02 | HC ---
[facility] [place] [address] CONSULTATION Name: MARCO FOFANA Room #: 455-P [facility] IN .R.#: [id number] Admission: 07/15/20 Attend Phys: Roosevelt Gallego MD Discharge: Date of : 60 Report #: [id number] THIS REPORT FOR: cc: [facility] - Clinic physician unknown [facility] - Clinic physician unknown Orlando Kebede MD ~ DATE OF SERVICE: 07/16/2020 INFECTIOUS DISEASE CONSULTATION REASON FOR CONSULTATION: I was asked to evaluate concerning thoracic and sacral wound infection with suspected underlying osteomyelitis. HISTORY OF PRESENT ILLNESS: The patient is a 59-year-old who had been residing at [facility] after a history of thoracic spine pressure wound and osteomyelitis along with sacral pressure wound and bony involvement. Previously treated in December, where she underwent surgical debridement followed by prolonged antibiotic therapy. The wounds worsened over the past week and she now presents for further intervention. No fever, chills or sweats. She had intermittent cough. No diarrhea. REVIEW OF SYSTEMS: A 14-point review of system was negative other than what has been described above. PAST MEDICAL HISTORY: Chronic osteomyelitis of the sacrum and thoracic spine, depression, diabetes, peripheral neuropathy, anxiety, bipolar disorder, personality disorder, degenerative joint disease, fibromyalgia, thyroid cancer, bilateral [id number] amputations, cholecystectomy. FAMILY HISTORY: Heart disease. SOCIAL HISTORY: Previous smoker, no significant alcohol intake. ALLERGIES: CONTRAST DYE, PENICILLIN, ____. MEDICATIONS: Included polyethylene glycol, metformin, oxycodone, Eliquis, metoprolol, vitamin D, sulfa. PHYSICAL EXAMINATION: VITAL SIGNS: Afebrile and hemodynamically stable. GENERAL: Alert and cooperative. SKIN: With 2 pressure wounds over the thoracic spine and sacrum. There was tunneling. There was no purulent drainage. There was mild surrounding erythema. No palpable adenopathy. She is obese. EYES: Without scleral icterus. [facility] [address] [place] [address] CONSULTATION Name: MARCO FOFANA Room #: 455-[facility] IN [facility].#: [id number] Admission: 07/15/20 Attend Phys: Roosevelt Gallego MD Discharge: Date of : 60 Report #: [id number] MOUTH: Without mucositis. NECK: Supple. LUNGS: Clear. HEART: Regular, without murmur, gallop or rub. ABDOMEN: Soft, nontender, no hepatosplenomegaly or mass. LABORATORY DATA: Reviewed. MICROBIOLOGY: Reviewed. Note that the patient is COVID-19 positive, but has been positive in the last month as well. IMPRESSION: Pressure wounds to the thoracic spine and sacrococcygeal region with underlying osteomyelitis. Borderline personality disorder, diabetes, obesity, bilateral lower extremity amputations. RECOMMENDATIONS: We will continue with IV antibiotic therapy. Surgical evaluation for further debridement. We will determine duration of IV antibiotic therapy postop. <ELECTRONICALLY SIGNED> By: Orlando Kebede MD 07/17/20 1502 0006 0051 Orlando Kebede MD /susu
[2020-07-17 15:28] VITALS: BP 106/63
[2020-07-17 20:00] VITALS: BP 101/57
--- NOTE | 2020-07-18 01:44 | NUR ---
PT IS A/O X4 AND IS ON BEDREST. DRSGS TO BACK AND SACRUM ARE C/D/I. C/O PAIN. PAIN MEDICATION GIVEN PER MAR. FALL PRECAUTIONS IMPLEMENTED. MONTAGUE AND COLOSTOMY BOTH WORKING APPROPRIATELY. CALL LIGHT IS WITHIN REACH.
[2020-07-18 04:45] LABS: HEMOGLOBIN 6.9 gm/dL (12.0-15.0); MCV 77.7 fL (80.0-100.0)
[2020-07-18 04:46] LABS: MCH 23.3 pg (26.0-34.0); RBC 2.97 mil/uL (4.20-5.00); RDW 19.7 % (10.5-14.5); WBC 6.9 thou/uL (4.0-11.0)
[2020-07-18 07:46] VITALS: BP 101/60
[2020-07-18 15:34] VITALS: BP 104/58
[2020-07-18 15:35] VITALS: BP 104/59
--- NOTE | 2020-07-18 19:36 | NUR ---
PT A&OX4, VSS, CHRONIC PAIN. PAIN MEDICATION GIVEN. PATIENT HAD 1 UNIT OF BLOOD, NO REACTION. PATIENT HAS L UPPER PICC, DOESNT DRAW. PATIENT HAS MONTAGUE, COLOSTOMY, BOTH PATENT. PATIENT REPOSITIONED OFTEN. NO SIGNS OF DISTRESS. WILL CONTINUE TO MONITOR.
[2020-07-18 20:02] VITALS: BP 104/62
--- NOTE | 2020-07-19 02:58 | NUR ---
PT CARE ASSUMED WITH PT IN BED WATCHING TV.PT IS A/O X4.PT IS PN BEDREST AND HAS BLE BKA.WOUND ON BACK AND SACRUM DRESSING CHANGED WITH SALINE AND DRESSING WET TO DRY WITH DAKINS WITH GUAZE AND ABD AND TAPE.PT NPO MIDNIGHT FOR WOUND DEBRIDEMENT.PT IS ACCUCHECK ACHS.PT HAS OXYCODONE AND MORPHINE FOR PAIN MANAGEMENT.IV ACCESS ON BENOIT WITH NS AT 75CC/HR
[2020-07-19 06:37] LABS: ABSOLUTE NEUTROPHILS 3.8 thou/uL (1.4-8.2); BASOPHILS 0.6 % (0.0-2.0); EOSINOPHILS 3.5 % (0.0-3.0); HEMATOCRIT 26.5 % (37.0-47.0); LYMPHOCYTES 30.9 % (24.0-44.0); MCV 79.8 fL (80.0-100.0); MONOCYTES 8.2 % (1.0-8.0); PLATELET COUNT 346 thou/uL (150-400); POLYS 56.8 % (36.0-66.0); RBC 3.33 mil/uL (4.20-5.00); RDW 19.9 % (10.5-14.5); WBC 6.7 thou/uL (4.0-11.0)
[2020-07-19 06:43] LABS: CALCIUM 7.7 mg/dL (8.5-10.1); CREATININE 0.4 mg/dL (0.6-1.0)
--- NOTE | 2020-07-19 07:06 | NUR ---
OSTOMY CARE; SCHEDULED FOR SURGERY TODAY, DEBRIDEMENT TO WOUND, ALERT AND ORIENTED X4, COOPERATIVE, LARGE AMT SOFT BROWN STOOL PER COLOSTOMY, POUCH CHANGED USING 2 PIECE SYSTEM CHELA CUT TO FIT, STOMA PINK VIABLE SLIGHT EDEMATOUS BUDDED, PERISTOMAL SKIN INTACT, ADAPT RING APPLIED UNDER WAFER, SUPPLIES AT BS RECOMMENDATIONS; CHANGE POUCH Q 3-5 DAYS AND PRN, EMPTY PRN STRATEGIC PLANNER AWARE
--- NOTE | 2020-07-19 12:27 | NUR ---
PT UNDERWENT SURGICAL DEBRIDEMENT THIS AM. PT IS ON IV MEROPEMEM. PHYSICIAN INDICATED THAT PT MAY BE MEDICALLY STABLE TO DC BACK TO [facility] SUNDAY OF THIS WEEK. CLINICAL UPDATE TO BE SENT TO FACILITY.
[2020-07-19 14:37] LABS: ANISOCYTOSIS 2+; HYPOCHROMASIA 1+; MICROCYTES 1+
--- NOTE | 2020-07-19 16:49 | NUR ---
PT ASSESSED AT START OF SHIFT. PT WENT FOR SACRAL WOUND DEBRIDEMENT THIS AM AND RETRUNED THIS AFTERNOON. REQUESTED AND GIVEN PAIN MEDS. IV ANTIBIOTICS GIVEN WHEN PT AVAILABLE.
[2020-07-19 19:45] VITALS: BP 111/72
--- NOTE | 2020-07-20 02:45 | NUR ---
PT CARE ASSUMED WITH PT IN BED .PT IS A/O X4.PT IS MAX ASSIST AND HAD AN I AND D DONE YESTERDAY.PT HAS A COLOSTOMY AND A MONTAGUE CATHETER IN PLACE.PAIN MANAGED WITH OXYCODONE.PT HAS A PICC SINGLE LUMEN ON BENOIT WITH NS AT 75CC/HR.PLAN D/C TODAY IF STABLE.WILL CONTINUE TO MONITOR PER POC
[2020-07-20 08:13] VITALS: BP 109/69
--- NOTE | 2020-07-20 12:53 | NUR ---
Received awake on bed. Due medications given as prescribed, able to swallow meds w/o difficulty. On room air. Vital signs stable. On MS, not on telemetry; no complains and signs of chest pain, crushing sensation and heaviness. Assisted in ADLs. On regular diet- tolerating well; no nausea, no vomiting and no abdominal pain noted. With colostomy in place- output measured and recorded accordingly. With arita in place, draining well; output measured and recorded accordingly. Falls bundle in place. With NS at 75cc/hr, infusing well at L upper arm single lumen PICC line. With bilat BKA- stump fully healed. With back and sacral wound- dressing in place; pt seen and examined by Surgeon- as per Dr Martines to verify with wound team re: possible wound vac; pt seen by wound team- Dr Starr, pt has wound vac back in her facility, no need to put one as of now. Complained of pain, due PRN pain meds given as prescribed. To continue monitoring patient.
--- NOTE | 2020-07-20 15:07 | NUR ---
PT HAD I&D YESTERDAY PT CONTINUES ON IV VANC AND MEROPENEM. CLINICAL TEAM INDICATED POSSIBLE DC BACK TO [facility] TOMORROW OR SUNDAY. CM TO FOLLOW INDICATED WITH DC PLANNING.
[2020-07-20 16:05] VITALS: BP 141/87
[2020-07-20 16:08] VITALS: BP 116/68
--- NOTE | 2020-07-21 03:43 | NUR ---
VSS-AFEBRILE. REPORTED PAIN 9/10 OVERNIGHT, PARTIAL RELIEF WITH ORAL PAIN MEDICATIONS. REPORTED PAIN IS WITH SORE ON BUTTOCKS. ALERT AND ORIENTED X 4, LUNGS CLEAR-ROOM AIR. TURNED AT LEAST EVERY TWO HOURS PER REQUEST. FALL PRECAUTIONS IN PLACE.
[2020-07-21 07:53] LABS: HEMATOCRIT 26.1 % (37.0-47.0); HEMOGLOBIN 7.8 gm/dL (12.0-15.0); MCH 23.6 pg (26.0-34.0); MCHC 30.1 g/dL (28.0-37.0); MCV 78.5 fL (80.0-100.0); RBC 3.32 mil/uL (4.20-5.00); WBC 8.4 thou/uL (4.0-11.0)
[2020-07-21 08:04] LABS: CREATININE 0.5 mg/dL (0.6-1.0); POTASSIUM 3.8 mmol/L (3.5-5.1)
[2020-07-21 08:30] VITALS: BP 95/61
--- NOTE | 2020-07-21 11:30 | NUR ---
Received awake on bed. Due medications given as prescribed, able to swallow meds w/o difficulty. On room air. Vital signs stable. Assisted in ADLs. On MS, not on telemetry; no complains and signs of chest pain, crushing sensation and heaviness. On regular diet- tolerating well; no nausea, no vomiting and no abdominal pain noted. On blood sugar monitoring, taken and recorded accordingly. With colostomy in place- output measured and recorded accordingly. With arita in place, output measured and recorded accordingly. With history of bilateral BKA- stump fully healed- no dressing in place. With single lumen PICC line in place at L upper arm; on IV antibiotics. With wound at her back and sacrum- dressing in place; to be changed today, wound photos to be taken. Falls bundle in place. Pt to be turned on her side, refuses from time to time. Complained of pain, due PRN pain meds given as prescribed- pt clock watching and asking pain meds on the dot, saying pain scale is 9/10, sleeping most of the time. To continue monitoring patient.
--- NOTE | 2020-07-21 15:04 | NUR ---
CARE TEAM INDICATED THAT PT WILL LIKELY BE MEDIALLY STABLE TO DC BACK TO [facility] TOMORROW. CLINICAL UPDATE TO BE SENT TO THE FACILITY. COVID TEST TO BE REPEATED IF NEEDED. CM TO FOLLOW INDICATED WITH DC PLANNING.
[2020-07-21 16:32] VITALS: BP 114/61
[2020-07-21 20:05] VITALS: BP 104/56
--- NOTE | 2020-07-22 03:42 | NUR ---
ASSUMED CARE OF PT AT 1900HRS. PT AOX4 AND LETS NEEDS BE KNOWN. FALL PRECAUTION IN PLACE. PT REPORTED SOME PAIN AND WAS TREATED WITH PRN PAIN MEDS. ASSESSMENT CHARTED. MONTAGUE IN PLACE AND PATIENT. COLOSTOMY BAG INTACT. PT ON LOW AIRLOSS PUMP. PT TURNED Q2-3H. PT WAS ABLE TO GET COMFORTABLE AND SLEEP PART OF THE SHIFT. VSS AND NO S.S OF ACUTE DISTRESS. WILL CONTINUE TO MONITOR.
[2020-07-22 07:37] VITALS: BP 107/58
[2020-07-22] MEDS ORDERED: MEROPENEM-500 MG/50 IVPB (12:13)
--- NOTE | 2020-07-22 14:35 | NUR ---
CARE TEAM INDICATED THAT PT IS MEDICALLY STABLE TO DISCHARGE BACK TO [facility] THIS DAY. PT IS TO DISCHARGE ON IV ABX. ORDERS FAXED TO [facility]. CHART COPY MADE. [employer] ARRANGED FOR [id number]. NURSE GIVEN NUMBER FOR REPORT. PT TO NOTIFY HER MOTHER. NO OTHER CM INTERVENTION INDICATED. CASE CLOSED.
--- NOTE | 2020-07-22 16:30 | NUR ---
PT A&OX4, VSS, PAIN IN BACK. PAIN MEDICATION GIVEN. PATIENT DISCHARGED TO FACILITY. PICC LEFT UPPER ARM, PATIENT WILL GET IV ABX AT FACILITY. PATIENT LEFT WITH MONTAGUE. COLOSTOMY CARE DONE. ALL BELONGINGS WITH PATIENT, NO SIGNS OF DISTRESS. AT DISCHARGE.
--- NOTE | 2020-07-23 11:07 | PATH ---
[facility] [address] [place] [address] PATHOLOGY RPT PROCEDURE Name: MARCO ANTOINE Room #: 455-P [facility] IN M.R.#: [id number] Admission: 07/15/20 Date of : 60 Discharge: 07/22/20 Report #: [id number] Path Case #: [id number] [facility] Accession Number: [id number] . 01 Material submitted: . PART A: sacrum - SACRAL BONE PART B: sacrum - SACRAL TISSUE . 01 Clinician provided ICD-10: L89.159 E43 . 01 Clinical history: . SACRAL WOUND . 02 Diagnosis: A. Bone, sacral bone, incision and drainage: - Fragments of bone with acute osteomyelitis and osteonecrosis. - Fragments of soft tissue with marked acute inflammation and granulation tissue consistent with wound tissue. . B. Sacral tissue, incision and drainage: - Skin and subcutaneous tissue with ulceration, gangrenous necrosis and marked acute inflammation associated with abscess formation. (IUV:lisette; 07/22/2020) QMS 07/22/2020 1508 Local . 02 Electronically signed: . Ling Mosqueda MD, Pathologist NPI- [id number] . 01 Gross description: . A. The specimen is received in formalin, labeled "Marco Antoine, sacral bone". Received are multiple segments of light israel bone measuring 4.5 x 3.0 x 1.4 cm in aggregate dimensions the specimen is submitted representatively in cassette A1, following decalcification. . B. The specimen is received in formalin, labeled "Marco Antoine, sacral tissue". Received is a 5.5 x 3.2 x 1.3 cm aggregate of yellow-israel to dusky rey-israel soft tissue and pale israel skin. The specimen is submitted representatively in cassette B1. (CAA; 07/21/2020) QA/[facility] 07/21/2020 1345 Local . 02 Pathologist provided ICD-10: M86.10, M87.9, M79.9 . [address] [address] PATHOLOGY RPT PROCEDURE Name: MARCO ANTOINE Room #: 455-P [facility] IN .R.#: [id number] Admission: 07/15/20 Date of : 60 Discharge: 07/22/20 Report #: [id number] Path Case #: [id number] [facility] . [id number], [id number], [id number] Specimen Comment: A courtesy copy of this report has been sent to [phone], [phone]- Specimen Comment: [phone] Specimen Comment: Report sent to / DR GUERRA Performed at: [address], [place], [place] [id number] MD Deonte Cardona MD Phone: [phone] Performed at: [address] [id number] MD Ling Mosqueda MD Phone: [phone]
== END 2020-07-22 14:50 | DRG 628 ==
LOC: ER 21:08 → 4W 21:40 → EROBS 21:40 → 4W 22:04
PROVIDERS: Emergency Medicine; Nurse Practitioner Family; Surgery; ADMIT Hospitalist; ATTEND Hospitalist
PROC: 02HV33Z Insertion of Infusion Device into Superior Vena Cava, Percutaneous Approach (ICD-10-PCS; principal; 2020-07-16)
PROC: 30233N1 Transfusion of Nonautologous Red Blood Cells into Peripheral Vein, Percutaneous Approach (ICD-10-PCS; 2020-07-18)
PROC: 0QB10ZZ Excision of Sacrum, Open Approach (ICD-10-PCS; 2020-07-19)
DX: E11.69 Type 2 diabetes mellitus with other specified complication (principal); L89.154 Pressure ulcer of sacral region, stage 4; E43 Unspecified severe protein-calorie malnutrition; U07.1 COVID-19; L89.44 Pressure ulcer of contiguous site of back, buttock and hip, stage 4; L89.324 Pressure ulcer of left buttock, stage 4; M46.28 Osteomyelitis of vertebra, sacral and sacrococcygeal region; M46.24 Osteomyelitis of vertebra, thoracic region; M17.0 Bilateral primary osteoarthritis of knee; F41.9 Anxiety disorder, unspecified; F31.9 Bipolar disorder, unspecified; Z86.16 Personal history of COVID-19; I48.91 Unspecified atrial fibrillation; E11.42 Type 2 diabetes mellitus with diabetic polyneuropathy; E66.01 Morbid (severe) obesity due to excess calories; G89.29 Other chronic pain; F60.3 Borderline personality disorder; Z90.49 Acquired absence of other specified parts of digestive tract; Z89.512 Acquired absence of left leg below knee; Z89.511 Acquired absence of right leg below knee; Z88.0 Allergy status to penicillin; Z88.8 Allergy status to other drugs, medicaments and biological substances; Z91.041 Radiographic dye allergy status; Z87.891 Personal history of nicotine dependence; Z82.49 Family history of ischemic heart disease and other diseases of the circulatory system; Z68.39 Body mass index [BMI] 39.0-39.9, adult
CPT/HCPCS: 10047; 27000; 50010; 50101; 50386; 50403; 57119; 57120; 57192; 62110; 62900; 70005

== ENCOUNTER 2020-07-25 15:44 | Emergency (ER) | payer OTHER ==
[~2020-07-25] VITALS: Ht 121.9 cm; Wt 95.3 kg
[~2020-07-25 15:44] MED LIST changes: +MEROPENEM-500 MG/50 IVPB
[2020-07-25 16:36] LABS: ABSOLUTE NEUTROPHILS 9.7 thou/uL (1.4-8.2); BASOPHILS 1.2 % (0.0-2.0); EOSINOPHILS 0.4 % (0.0-3.0); HEMATOCRIT 27.5 % (37.0-47.0); HEMOGLOBIN 8.3 gm/dL (12.0-15.0); MCH 23.6 pg (26.0-34.0); MCHC 30.1 g/dL (28.0-37.0); MCV 78.3 fL (80.0-100.0); MONOCYTES 6.9 % (1.0-8.0); PLATELET COUNT 592 thou/uL (150-400); POLYS 76.5 % (36.0-66.0); RBC 3.51 mil/uL (4.20-5.00); RDW 19.9 % (10.5-14.5); WBC 12.6 thou/uL (4.0-11.0)
[2020-07-25] MEDS ORDERED: MELATONIN3 M1 PO (16:40)
[2020-07-25] MEDS ORDERED: MORPHINE SULFAT15 MG PO (16:42)
[2020-07-25] MEDS ORDERED: ATIVAN0.5 M1 PO (16:43)
[2020-07-25] MEDS ORDERED: FLEXERIL PO (16:43)
[2020-07-25 16:47] LABS: CALCIUM 7.8 mg/dL (8.5-10.1); CREATININE 0.5 mg/dL (0.6-1.0); POTASSIUM 3.9 mmol/L (3.5-5.1)
[2020-07-25 16:48] LABS: URINE BILIRUBIN NEGATIVE (Negative); URINE BLOOD 3+ (Negative); URINE CLARITY CLOUDY; URINE COLOR YELLOW; URINE GLUCOSE-RANDOM* NEGATIVE (Negative); URINE KETONES TRACE (Negative); URINE NITRITE-REFLEX NEGATIVE (Negative); URINE PROTEIN (DIPSTICK) 1+ (Negative); URINE SPECIFIC GRAVITY 1.025 (1.005-1.035); URINE UROBILINOGEN 0.2 E.U./dl (0.2-1.0)
[2020-07-25 16:50] LABS: APTT 33.7 Seconds (24.5-32.8); PROTIME 10.6 Seconds (9.3-11.4)
[2020-07-25 16:51] LABS: URINE LEUKOCYTES-REFLEX 1+ (Negative)
[2020-07-25 16:53] LABS: ALBUMIN 1.7 g/dL (3.4-5.0); TOTAL BILIRUBIN 0.3 mg/dL (0.2-1.0); TOTAL PROTEIN 4.9 g/dL (6.4-8.2)
[2020-07-25 17:08] LABS: CASTS None Seen /LPF (None Seen); MUCUS >6 Heavy strn/LPF (None Seen); SQUAMOUS 0-3 Few /LPF (0-3)
[2020-07-25 17:09] LABS: BACTERIA-REFLEX 1-9 Few /HPF (None Seen); CRYSTALS None Seen /LPF (None Seen); URINE WBC-REFLEX >25 Many /HPF (0-5)
[2020-07-25 19:21] VITALS: BP 116/58
[2020-07-25 20:15] LABS: ANISOCYTOSIS 1+; HYPOCHROMASIA 2+; MICROCYTES 2+
[2020-07-25 20:16] LABS: OVALOCYTES 1+
== END 2020-07-25 19:28 ==
LOC: ER 15:44
PROVIDERS: Physician Assistant
DX: K94.09 Other complications of colostomy (principal); D64.9 Anemia, unspecified; E11.40 Type 2 diabetes mellitus with diabetic neuropathy, unspecified; M79.7 Fibromyalgia; Z87.891 Personal history of nicotine dependence; Z91.041 Radiographic dye allergy status; Z88.1 Allergy status to other antibiotic agents; Z88.0 Allergy status to penicillin; Z88.8 Allergy status to other drugs, medicaments and biological substances; Z79.899 Other long term (current) drug therapy

== ENCOUNTER 2020-08-02 02:40 | Inpatient (IN) | payer OTHER ==
[~2020-08-02] VITALS: Ht 139.7 cm; Wt 90.7 kg
[~2020-08-02 02:40] MED LIST changes: +ATIVAN0.5 M1 PO; +FLEXERIL PO; +MELATONIN3 M1 PO; +MORPHINE SULFAT15 MG PO
[2020-08-02 02:41] VITALS: BP 112/82
[2020-08-02] MEDS ORDERED: LYRICA150 MG PO (03:02)
[2020-08-02] MEDS ORDERED: ELIQUIS5 MG PO (03:02)
[2020-08-02] MEDS ORDERED: VITAMIN D325 MC2 PO (03:04)
[2020-08-02 03:12] LABS: ABSOLUTE NEUTROPHILS 8.7 thou/uL (1.4-8.2); BASOPHILS 1.2 % (0.0-2.0); EOSINOPHILS 1.3 % (0.0-3.0); HEMATOCRIT 26.7 % (37.0-47.0); LYMPHOCYTES 16.7 % (24.0-44.0); MCH 23.5 pg (26.0-34.0); MCHC 29.8 g/dL (28.0-37.0); MCV 78.7 fL (80.0-100.0); PLATELET COUNT 391 thou/uL (150-400); POLYS 71.8 % (36.0-66.0); RBC 3.39 mil/uL (4.20-5.00); RDW 19.3 % (10.5-14.5); WBC 12.1 thou/uL (4.0-11.0)
[2020-08-02 03:13] LABS: CALCIUM 7.4 mg/dL (8.5-10.1); CREATININE 0.5 mg/dL (0.6-1.0); POTASSIUM 3.8 mmol/L (3.5-5.1)
[2020-08-02 03:14] LABS: PROTIME 10.4 Seconds (9.3-11.4)
[2020-08-02 06:56] VITALS: BP 113/65
[2020-08-02 07:15] VITALS: BP 116/67
[2020-08-02 08:39] VITALS: BP 122/76
[2020-08-02 16:16] VITALS: BP 123/76
[2020-08-02 19:39] VITALS: BP 114/64
[2020-08-03 03:59] VITALS: BP 123/73
[2020-08-03 06:11] LABS: HEMATOCRIT 24.7 % (37.0-47.0); HEMOGLOBIN 7.5 gm/dL (12.0-15.0); MCH 24.3 pg (26.0-34.0); MCHC 30.6 g/dL (28.0-37.0); MCV 79.4 fL (80.0-100.0); RBC 3.11 mil/uL (4.20-5.00); RDW 19.7 % (10.5-14.5); WBC 9.2 thou/uL (4.0-11.0)
[2020-08-03 06:30] LABS: CALCIUM 7.7 mg/dL (8.5-10.1); CREATININE 0.4 mg/dL (0.6-1.0)
[2020-08-03 07:05] VITALS: BP 127/82
--- NOTE | 2020-08-03 08:06 | HC ---
[facility] [place] [address] CONSULTATION Name: MARCO FOFANA Room #: 434-P ADM IN .R.#: [id number] Admission: 08/02/20 Attend Phys: Concha Bonilla MD Discharge: Date of : 60 Report #: [id number] THIS REPORT FOR: cc: [facility] - Clinic physician unknown [facility] - Clinic physician unknown Seamus Vigil MD ~ DATE OF SERVICE: 08/02/2020 WOUND CARE CONSULTATION REASON FOR CONSULTATION: Nonhealing patient with sacral stage 4 and lower back pressure ulcers, admitted through the ED for bright red rectal bleeding. HISTORY OF PRESENT ILLNESS: The patient is a 59-year-old woman with bilateral below-knee amputations from complications of diabetes and lower extremity osteomyelitis, who is immobile and living at [facility] with known sacral stage decubitus ulcer and pressure ulcer of the right lower back. She was found in a pool red blood at her [facility], brought to the Emergency Department. In the Emergency Department, she was found to have a fecal impaction and was disimpacted. Apparently, there was some blood from the rectum. Hemoglobin 8.0, hematocrit 26.7 and hemodynamically stable. She was noted to have sacral ulcers and ulcer of the lower back and Wound Care is consulted. She is a patient known to Dr. Starr. PAST MEDICAL HISTORY: 1. Bilateral above-knee amputations for lower extremity complications with osteomyelitis. 2. Anticoagulated on Eliquis. 3. History of COVID-19 in April. 4. Diverting colostomy. 5. History of atrial fibrillation. 6. History osteomyelitis of sacrum. ALLERGIES: CONTRAST DYE, PENICILLINS, ASPARTAME. MEDICATIONS: See chart. Apparently, the patient was on Eliquis. PHYSICAL EXAMINATION: GENERAL: Shows chronically ill-appearing woman who appears older than her stated age of 59. She is a good historian. She is alert, lucid and clear. HEENT: Mucous membranes are moist. ABDOMEN: Obese with a functioning colostomy. Examination of the patient's back shows her left lower back to the left of midline there is a 3 x 4 cm stage 4 pressure ulcer with granulated base. This appears chronic. In the distal sacral area, there is a 5 x 5 cm, stage 4 sacral pressure ulcer, which is mostly [facility] [address] [place] [address] CONSULTATION Name: MARCO FOFANA Room #: 434-P [facility] IN .R.#: [id number] Admission: 08/02/20 Attend Phys: Concha Bonilla MD Discharge: Date of : 60 Report #: [id number] granulated with some exposed bone and connective tissue. This appears chronic. Hard stool was coming from the rectum. I performed a digital rectal exam, pulled out some hard stool and I believe that I appreciated anteriorly palpable superficial rectal ulcer, possibly stercoral ulcer from hard stool. There was no blood in the rectum at this point. EXTREMITIES: Lower extremity exam shows healed bilateral below-knee amputations. IMPRESSION: 1. 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 2. Status post bilateral below-knee amputations, status post osteomyelitis. 3. Immobility. 4. 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 5. Chronic stage IV pressure ulcer. Order quarter strength Dakin's pack twice daily. 6. Sacral stage IV pressure ulcer. History of osteomyelitis, also chronic. PLAN: 1. Order quarter strength Dakin's pack twice daily. 2. Fungal dermatitis. Order nystatin cream to these areas twice daily. 3. Fecal impaction. The patient has now been disimpacted. 4. Rectal bleeding, most likely source of bleeding would be rectal bleeding from stercoral ulcer from fecal impaction and the patient on Eliquis. Her Eliquis is being held. Further evaluation of the GI tract. If needed, can be done by Gastroenterology consult and Wound Care team will follow her sacral and back wound and her fungal dermatitis. <ELECTRONICALLY SIGNED> By: Seamus Vigil MD 08/03/20 0806 [id number] Seamus Vigil MD /nt
[2020-08-03 16:20] VITALS: BP 112/74
[2020-08-03 17:21] LABS: HEMOGLOBIN 7.4 gm/dL (12.0-15.0)
[2020-08-03 19:12] VITALS: BP 112/74
[2020-08-04 03:04] VITALS: BP 124/79
[2020-08-04 05:55] LABS: HEMOGLOBIN 7.6 gm/dL (12.0-15.0); MCH 23.8 pg (26.0-34.0); MCHC 30.3 g/dL (28.0-37.0); MCV 78.6 fL (80.0-100.0); RBC 3.18 mil/uL (4.20-5.00); RDW 19.5 % (10.5-14.5); WBC 7.1 thou/uL (4.0-11.0)
[2020-08-04 07:00] VITALS: BP 111/72
[2020-08-04] MEDS ORDERED: HUMALOG100 UNIT/1 SUBQ (13:23)
[2020-08-04] MEDS ORDERED: ACETAMINOPHEN325 M1 PO (13:23)
[2020-08-04] MEDS ORDERED: HYDROCODON-ACE1 EAC7 PO (13:23)
[2020-08-04] MEDS ORDERED: FEOSOL325 M1 PO (13:27)
== END 2020-08-04 15:40 | DRG 377 ==
LOC: ER 02:40 → 4S 04:22 → EROBS 04:22 → 4S 07:52
PROVIDERS: Emergency Medicine; Internal Medicine; Nurse Practitioner Family; ADMIT Internal Medicine; ATTEND Internal Medicine
PROC: 0DJD8ZZ Inspection of Lower Intestinal Tract, Via Natural or Artificial Opening Endoscopic (ICD-10-PCS; principal; 2020-08-03)
DX: K92.1 Melena (principal); L89.124 Pressure ulcer of left upper back, stage 4; L89.114 Pressure ulcer of right upper back, stage 4; L89.144 Pressure ulcer of left lower back, stage 4; L89.134 Pressure ulcer of right lower back, stage 4; L89.154 Pressure ulcer of sacral region, stage 4; Z68.42 Body mass index [BMI] 45.0-49.9, adult; D62 Acute posthemorrhagic anemia; E11.40 Type 2 diabetes mellitus with diabetic neuropathy, unspecified; M17.0 Bilateral primary osteoarthritis of knee; M54.5 Low back pain; M79.7 Fibromyalgia; F31.9 Bipolar disorder, unspecified; F41.9 Anxiety disorder, unspecified; B36.8 Other specified superficial mycoses; I48.91 Unspecified atrial fibrillation; F43.10 Post-traumatic stress disorder, unspecified; E11.42 Type 2 diabetes mellitus with diabetic polyneuropathy; R53.81 Other malaise; E78.5 Hyperlipidemia, unspecified; G89.4 Chronic pain syndrome; E11.621 Type 2 diabetes mellitus with foot ulcer; E66.9 Obesity, unspecified; Z93.3 Colostomy status; Z90.49 Acquired absence of other specified parts of digestive tract; Z89.511 Acquired absence of right leg below knee; Z79.01 Long term (current) use of anticoagulants; Z89.512 Acquired absence of left leg below knee; Z79.899 Other long term (current) drug therapy; Z88.0 Allergy status to penicillin; Z88.8 Allergy status to other drugs, medicaments and biological substances; Z88.1 Allergy status to other antibiotic agents; Z91.041 Radiographic dye allergy status; Z86.16 Personal history of COVID-19; Z87.891 Personal history of nicotine dependence; Z20.822 Contact with and (suspected) exposure to COVID-19
CPT/HCPCS: 10102; 62110; 62900; 70005

== ENCOUNTER 2021-02-22 15:46 | Inpatient (IN) | payer OTHER ==
[~2021-02-22] VITALS: Ht 152.4 cm; Wt 82.6 kg
--- NOTE | ~2021-02-22 | EMS ---
[facility] [address] [place] [address] EMS Patient Care Report Name: MARCO FOFANA Room #: REG TAMEKA Campbell#: [id number] Admission: 02/22/21 Attend Phys: Discharge: Date of : 60 Report #: [id number] THIS REPORT FOR: //name// Report Transmitted: 02/22/2021 15:38 EMS Care Summary [place], [place]/[facility] Incident [id number] @ 02/22/2021 15:14 Incident Location [id number] [place] [address] 312 A Patient MARCO FOFANA Female, 60 Years 1960 Patient Address [id number] [place] [address] [address] [place] [address] Patient History Amputee,Pneumonia,Depression,Sepsis,Pressure Ulcer,Type 2 Diabetes,Cellulitis,Novel Coronavirus (COVID-19), Patient Allergies Food Allergy,Penicillin allergy,Keflex,Iodine, Patient Medications Magnesium Oxide, Zyrtec, Atorvastatin, Metformin, Lasix, Levothyroxine, Eliquis, Potassium, Duloxetine, Melatonin, Omeprazole, Other, Doxycycline, Oxycodone/ASA, Polyethlene Glycol, Vitamin D, Chief Complaint pressure ulcer Disposition Transported No Lights/[place] Dispatch Reason Sick Person Transported To [facility] [address] [place] [address] EMS Patient Care Report Name: MARCO FOFANA Room #: REG Shannan#: [id number] Admission: 02/22/21 Attend Phys: Discharge: Date of : 60 Report #: [id number] pt has pressure ulcers on her low back. nurse doing dressing change today noticed bone exposed and fluid fill pocket the size of a grapefruit. pt to be seen at [facility] for eval, closed. [facility]. pt to cot and transport. pt noted to be hypotensive. pt states BP normally 100-110 systolic. Initial Vitals @15:32P: 95,R: 18,BP: 84/53,Pain: 8/10,GCS: 15,CO: 2,SpO2: 98,Revised Trauma: 11, Assessments @15:24MENTAL:No Abnormalities,SKIN:Pale,HEENT:Head/Face: No Abnormalities,LUNG SOUNDS:ABDOMEN:PELVIS//GI:EXTREMITIES:PULSE:NEURO: Impression Skin infection Procedures @15:24ALS AssessmentResponse: Unchanged@15:28StretcherResponse: Unchanged Timeline 15:11,Call Received 15:11,Dispatch Notified 15:14,Dispatched 15:14,En Route 15:22,On Scene 15:24,At Patient 15:24,ALS Assessment,Response: Unchanged 15:28,Stretcher,Response: Unchanged 15:32,BP: 84/53 M,PULSE: 95,RR: 18 R,SPO2: 98 Ox,ETCO2: ,BG: ,PAIN: 8,GCS: 15, 15:33,Depart Scene 15:53,At Destination 16:02,Call Closed Disclaimer v1.1 Copyright 2020 [employer] This EMS Care Summary contains data elements from the applicable legal record (which may be displayed differently). It is designed to provide pertinent information for the following purposes: continuity of care, clinical quality, and state data reporting. The complete legal record is available to ED staff and administrators of the receiving hospital in [employer]'s Patient Tracker. All data is provided "as is."
--- NOTE | ~2021-02-22 | EMS ---
[address] [address] EMS Patient Care Report Name: MARCO FOFANA Room #: 439-P ADM IN M.R.#: [id number] Admission: 02/22/21 Attend Phys: Roosevelt Gallego MD Discharge: Date of : 60 Report #: [id number] THIS REPORT FOR: //name// Report Transmitted: 02/24/2021 09:41 EMS Care Summary [place], [place]/[facility] Incident [id number] @ 02/22/2021 15:14 Incident Location [address] [place] [address] 312 A Patient MARCO FOFANA Female, 60 Years 1960 Patient Address [address] [place] [address] [address] [place] [id number] Patient History Amputee,Pneumonia,Depression,Sepsis,Pressure Ulcer,Type 2 Diabetes,Cellulitis,Novel Coronavirus (COVID-19), Patient Allergies Food Allergy,Penicillin allergy,Keflex,Iodine, Patient Medications Magnesium Oxide, Zyrtec, Atorvastatin, Metformin, Lasix, Levothyroxine, Eliquis, Potassium, Duloxetine, Melatonin, Omeprazole, Other, Doxycycline, Oxycodone/ASA, Polyethlene Glycol, Vitamin D, Chief Complaint pressure ulcer Disposition Transported No Lights/[place] Dispatch Reason Sick Person Transported To [facility] [address] [place] [address] EMS Patient Care Report Name: MARCO FOFANA Room #: 439-P ADM IN [facility]#: [id number] Admission: 02/22/21 Attend Phys: Roosevelt Gallego MD Discharge: Date of : 60 Report #: [id number] pt has pressure ulcers on her low back. nurse doing dressing change today noticed bone exposed and fluid fill pocket the size of a grapefruit. pt to be seen at [facility] for eval, closed. [facility]. pt to cot and transport. pt noted to be hypotensive. pt states BP normally 100-110 systolic. Initial Vitals @15:32P: 95,R: 18,BP: 84/53,Pain: 8/10,GCS: 15,CO: 2,SpO2: 98,Revised Trauma: 11, Assessments @15:24MENTAL:No Abnormalities,SKIN:Pale,HEENT:Head/Face: No Abnormalities,LUNG SOUNDS:ABDOMEN:PELVIS//GI:EXTREMITIES:PULSE:NEURO: Impression Skin infection Procedures @15:24ALS AssessmentResponse: Unchanged@15:28StretcherResponse: Unchanged Timeline 15:11,Call Received 15:11,Dispatch Notified 15:14,Dispatched 15:14,En Route 15:22,On Scene 15:24,At Patient 15:24,ALS Assessment,Response: Unchanged 15:28,Stretcher,Response: Unchanged 15:32,BP: 84/53 M,PULSE: 95,RR: 18 R,SPO2: 98 Ox,ETCO2: ,BG: ,PAIN: 8,GCS: 15, 15:33,Depart Scene 15:53,At Destination 16:02,Call Closed Disclaimer v1.1 Copyright 2020 [employer] This EMS Care Summary contains data elements from the applicable legal record (which may be displayed differently). It is designed to provide pertinent information for the following purposes: continuity of care, clinical quality, and state data reporting. The complete legal record is available to ED staff and administrators of the receiving hospital in [employer]'s Patient Tracker. All data is provided "as is."
--- NOTE | ~2021-02-22 | O ---
[facility] [place] [address] OPERATIVE REPORT Name: MARCO FOFANA Room #: 439-P [facility] IN .R.#: [id number] Admission: 02/22/21 Attend Phys: Roosevelt Gallego MD Discharge: 03/01/21 Date of : 60 Report #: [id number] THIS REPORT FOR: cc: Ramón Almeida MD, Srinath MD Soliman,Nathaniel Rodriguez MD FACS ~ DATE OF SERVICE: 02/25/2021 PREOPERATIVE DIAGNOSES: 1. Sacral, mid back, bilateral ischial decubitus wounds. 2. Morbid obesity. POSTOPERATIVE DIAGNOSES: 1. Sacral, mid back, bilateral ischial decubitus wounds. 2. Morbid obesity. PROCEDURE PERFORMED: 1. Excisional debridement of skin, subcutaneous tissue, muscle and bone of a stage IV sacral decubitus wound, ultimately measuring 10.5 x 10 cm in dimension (105 square cm). Preoperative and postoperative wound measurements were similar as the overall dimensions of the wound did not change substantially. 2. Excisional debridement of skin, subcutaneous tissue, muscle and bone of a mid back wound, ultimately measuring 9 x 9 cm in dimension (81 square cm). Preoperative and postoperative dimensions of the wound did not change substantially as the overall dimensions of the wound did not change substantially. 3. Excisional debridement of skin, subcutaneous tissue and muscle of a right ischial decubitus wound measuring 2 x 2 cm in dimension (4 square cm). Overall, dimensions of the wound did not change substantially preoperatively and postoperatively. 4. Excisional debridement of skin, subcutaneous tissue, and muscle/fascia of a left ischial decubitus wound, ultimately measuring 2 x 2 cm in dimension (4 square cm). Preoperative and postoperative wound measurements did not change substantially. 5. The total surface area of wounds debrided to bone equals 186 square cm. 6. The total surface area of wounds debrided to muscle/fascia equals 8 cm in dimension. SURGEON: Nathaniel Randall MD PLASTIC PARTS FABRICATOR: CORRIE Michele ANESTHESIA: General endotracheal anesthesia. ESTIMATED BLOOD LOSS: Minimal (less than 10 mL). [address] [address] OPERATIVE REPORT Name: MARCO FOFANA Room #: 439-P [facility] IN ..#: [id number] Admission: 02/22/21 Attend Phys: Roosevelt Gallego MD Discharge: 03/01/21 Date of : 60 Report #: [id number] COMPLICATIONS: None appreciated. SPECIMENS: All debrided tissue to pathology. INDICATIONS: The patient is a 60-year-old morbidly obese female with ongoing wounds to the regions as delineated above in the procedure listing, who has significant biofilm necrotic tissue and slough throughout the bed of each wound, necessitating debridement for ongoing proper wound care. DESCRIPTION OF PROCEDURE: After explaining the risks, benefits and alternatives of the procedure with the patient in detail in the preoperative holding area and obtaining consent, the patient was brought to the operating room, supine on her hospital bed. After conducting a thorough timeout procedure, verifying correct patient and procedure, the patient was given general endotracheal anesthesia. Once adequate anesthesia was obtained, her SCDs were hooked up to the pneumatic compression device and she was given a preoperative dose of antibiotics in line with the SCIP protocol. The patient was now positioned in the prone position with all pressure points appropriately padded and her wounds were prepped and draped in standard surgical sterile fashion. Electrocautery was used to circumferentially debride all nonviable tissue throughout the entirety of each wound to the level as delineated above in the procedure listing. [id number] ultrasonic debridement tool was now used to remove all remaining nonviable tissue and biofilm from the entirety of each wound. Hemostasis was assured with electrocautery and then each wound was packed tightly with sterile saline soaked Kerlix gauze, dressed with 4 x 4's, ABDs and Medipore tape completing the procedure. At the end of the procedure, all instrument, needle and sponge counts were correct. The patient tolerated the procedure without incident, was awakened in the operating room and transitioned to the recovery room in stable condition with no apparent complications. By: [id number] Nathaniel Randall MD, FACS /nt
[~2021-02-22 15:46] MED LIST changes: +ACETAMINOPHEN325 M1 PO; +FEOSOL325 M1 PO; +HUMALOG100 UNIT/1 SUBQ; +HYDROCODON-ACE1 EAC7 PO; +VITAMIN D325 MC2 PO
[2021-02-22 15:52] VITALS: BP 94/51
[2021-02-22 16:20] LABS: ABSOLUTE NEUTROPHILS 7.2 thou/uL (1.4-8.2); BASOPHILS 0.5 % (0.0-2.0); EOSINOPHILS 0.3 % (0.0-3.0); HEMATOCRIT 22.5 % (37.0-47.0); HEMOGLOBIN 7.2 gm/dL (12.0-15.0); LYMPHOCYTES 20.2 % (24.0-44.0); MCH 30.2 pg (26.0-34.0); MCV 94.3 fL (80.0-100.0); MONOCYTES 10.2 % (1.0-8.0); PLATELET COUNT 222 thou/uL (150-400); POLYS 68.8 % (36.0-66.0); RBC 2.38 mil/uL (4.20-5.00); RDW 21.1 % (10.5-14.5); WBC 10.4 thou/uL (4.0-11.0)
[2021-02-22 16:36] LABS: CALCIUM 7.2 mg/dL (8.5-10.1); CREATININE 1.3 mg/dL (0.6-1.0); POTASSIUM 4.4 mmol/L (3.5-5.1)
[2021-02-22 16:44] LABS: ALBUMIN 1.2 g/dL (3.4-5.0); TOTAL BILIRUBIN 0.3 mg/dL (0.2-1.0); TOTAL PROTEIN 4.8 g/dL (6.4-8.2)
[2021-02-22] MEDS ORDERED: VITAMIN B-121000 MC2 PO (16:47)
[2021-02-22] MEDS ORDERED: FUROSEMIDE 40 M40 MG PO (16:49)
[2021-02-22] MEDS ORDERED: ACIDOPHILUS LA1 EAC1 PO (16:50)
[2021-02-22] MEDS ORDERED: MINOCYCLINE HC100 M2 PO (16:53)
[2021-02-22] MEDS ORDERED: MICONAZOLE5 GM TOP (16:53)
--- NOTE | 2021-02-22 17:28 | NUR ---
TALKED WITH CLARKE GARCÍA/CHARGE NURSE AT [facility]. RAQUEL WAS UNABLE TO PROVIDE ME WITH THE NAME OF PROVIDER WHO ORDERS WOUND CARE ON PATIENT BESIDES A HYDROELECTRIC PRODUCTION MANAGER WHO IS WITH A LOCAL WOUND CARE COMPANY ([id number]?) NAMED JOSE GOYAL AND PROVIDES WOUND CARE TO HER DURING THE DAY. RAQUEL WAS UNABLE TO PROVIDE ME ANY INFORMATION REGARDING HER WOUND CARE AT [facility] IT HAD "BEEN FILED AWAY BY THE FOOD AND BEVERAGE ASSISTANT MANAGER". RAQUEL ALSO INFORMED ME THE WOUND VAC COME OFF OF PATIENT BACK ON SUNDAY 02/18 D/T THEIR IMPRESSION THAT THE GROWING MASS ON PATIENTS BACK WAS ATTRIBUTED TO THE WOUND VAC.
--- NOTE | 2021-02-22 17:28 | NUR ---
TALKED WITH CLARKE GARCÍA/CHARGE NURSE AT [place]. RAQUEL WAS UNABLE TO PROVIDE ME WITH THE NAME OF PROVIDER WHO ORDERS WOUND CARE ON PATIENT BESIDES AN WRIST HEMMER WHO IS WITH A LOCAL WOUND CARE COMPANY ([id number]?) NAMED JOSE GOYAL AND PROVIDES WOUND CARE TO HER DURING THE DAY. RAQUEL WAS UNABLE TO PROVIDE ME ANY INFORMATION REGARDING HER WOUND CARE AT [facility] IT HAD "BEEN FILED AWAY BY THE ROUTER SETTER". RAQUEL ALSO INFORMED ME THE WOUND VAC CAME OFF OF PATIENT BACK ON Sunday02/18/21 D/T THEIR IMPRESSION THAT THE GROWING MASS ON PATIENT BACK WAS ATTRIBUTED TO THE WOUND VAC.
--- NOTE | 2021-02-22 19:04 | NUR ---
REPORT TO JENY PATTERSON AT THIS TIME
[2021-02-23 00:50] VITALS: BP 117/74
[2021-02-23 01:19] VITALS: BP 94/60
--- NOTE | 2021-02-23 03:57 | NUR ---
Pt admitted to room 439. Admission assessment complete. Admission history and education completed. Provided pt with packet and code/menu. Filled water. Provided prn tylenol for pt due to back pain. Call light in reach.
--- NOTE | 2021-02-23 04:20 | NUR ---
PT HAS WOUNDS TO HER BACK,SACRUM AND RLE.PICS TAKEN.WOUND CARE DRSGS COMPLETED AFTERWARDS.COLOSTOMY TO HER R SIDE.BROWN LOOSE STOOL NOTED IN THE BAG.PT HAS RED SPOTS ON HER HANDS AND BACK.PT STATED THAT IT WAS FROM A REACTION SHE HAD FROM TAKING ABX.PT STATED THAT SHE HAS HAD THE COVID VACCINE,BUT CANNOT REMEMBER THE NAME OR THE TIME THAT SHE GOT IT.IVF INFUSING ORDERED.PT ABLE TO MAKE HER NEEDS KNOWN.CALL LIGHT WITHIN REACH.
[2021-02-23 08:10] VITALS: BP 114/63
--- NOTE | 2021-02-23 09:05 | NUR ---
ASSESSMENT: CM REVIEWED CHART AND SPOKE WITH PATIENT AT THE BEDSIDE. PT IS ALERT AND ORIENTED X4. PT WAS ADMITTED FROM [facility] DUE TO WORSENING SACRAL WOUND. PT WAS RECENTLY AT [facility] EARLIER THIS MONTH. WOUND CARE AND ID HAVE BEEN CONSULTED. PT REPORTS THAT SHE IS BEDBOUND OVER AT [facility]. CM FAXED CLINICAL TO [facility] TO UPDATE. CM ALSO SPOKE WITH PATIENTS MOTHER AFSHIN [phone] TO UPDATE. PLANS WILL BE FOR PATIENT TO LIKELY RETURN TO [facility] ONCE MEDICALLY STABLE. PT IS CURRENTLY ON IV ANBX, AWAITING WOUND CARE AND ID CONSULTS. CM WILL CONTINUE TO FOLLOW.
--- NOTE | 2021-02-23 10:07 | NUR ---
ASSUMED PT CARE THIS AM. PT HAS IV SITE ON R HAND. PT IS ACCUCHECK ACHS. PT IS TURN Q2H. PT HAS [place] AND COLOSTOMY IN PLACE. PT IS ON ROOM AIR. PT HAS WOUNDS ON SACRUM, RLE AN BACK. AWAITING FOR WOUND TEAM TO SEE THE PATIENT. CALLED PT MOM FOR AN UPDATE THIS AM. PT C/O OF PAIN THIS AM AND GIVEN PAIN MEDICATION PER PT REQUEST. NO C/O OF NAUSEA AND VOMITING. WILL CONTINUE TO MONITOR PT. FOLLOW POC.
--- NOTE | 2021-02-23 13:56 | NUR ---
WOUND CONSULT; ROUNDING WITH DR VARNER. THE PATIENT IS KNOW TO DR VARNER WHO HAS STAGE 4 PRESSURE INJURIES TO THE BACK,SACRUM AND BILATERAL ISCHIAL TUBEROSITIES. THE PATIENT IS SCHEDULED FOR SURGICAL DEBRIDMENT. WOUND CARE ORDERS WILL FOLLOW. THE WOUNDS HAVE NO VIABLE TISSUE, ODOROUS AND PAINFUL. RECCOMMENDATIONS; -ORDER AN ENVISION MATTRESS. -Q2H TURNING.
[2021-02-23 16:20] VITALS: BP 112/59
[2021-02-23 18:31] LABS: URINE BILIRUBIN NEGATIVE (Negative); URINE BLOOD 3+ (Negative); URINE CLARITY SL CLOUDY; URINE COLOR YELLOW; URINE GLUCOSE-RANDOM* NEGATIVE (Negative); URINE KETONES NEGATIVE (Negative); URINE PROTEIN (DIPSTICK) 1+ (Negative); URINE UROBILINOGEN 0.2 E.U./dl (0.2-1.0)
[2021-02-23 18:37] LABS: URINE LEUKOCYTES-REFLEX 3+ (Negative); URINE NITRITE-REFLEX POSITIVE (Negative)
[2021-02-23 18:51] LABS: CASTS None Seen /LPF (None Seen); SQUAMOUS None Seen /LPF (0-3)
[2021-02-23 18:52] LABS: BACTERIA-REFLEX None Seen /HPF (None Seen); URINE RBC 3-10 Few /HPF (NONE SEEN); URINE WBC-REFLEX 0-5 Rare /HPF (0-5)
[2021-02-23 18:53] LABS: TRIPLE PHOSPHATE CRYSTALS >10 Many /LPF (None Seen)
[2021-02-23 19:30] VITALS: BP 109/68
[2021-02-24 03:19] VITALS: BP 107/68; BP 99/66
--- NOTE | 2021-02-24 03:43 | NUR ---
TODAY THIS PT HAS HAD STABLE VS AND HAS HAD SOME STATED PAIN IN WHICH IT WAS TAKEN CARE OF WITH MEDICATION. HER HBG LAB CAME BACK A 6.3 SO PHYSICAN WAS CONTACTED AND ORDERS WERE GIVEN AND SHE IS NOW GETTING ONE UNIT OF BLOOD VIA IV INFUSION AND HAS BEEN TOLERATING IT WELL. SHE HAS OTHERWISE BEEN ASLEEP FOR SOME OF THE NIGHT AWAITING FOR THE NEXT PLAN. SHE HAS STATED THAT SHE WANTED TO TALK TO THE PHYSICIAN ABOUT HER HOME MEDICATION LIST.
[2021-02-24 07:28] VITALS: BP 98/65
[2021-02-24 07:32] VITALS: BP 107/67
[2021-02-24 08:16] LABS: HEMATOCRIT 23.4 % (37.0-47.0); HEMOGLOBIN 7.6 gm/dL (12.0-15.0); MCH 30.4 pg (26.0-34.0); MCHC 32.5 g/dL (28.0-37.0); MCV 93.7 fL (80.0-100.0); RBC 2.5 mil/uL (4.20-5.00); RDW 19.8 % (10.5-14.5); WBC 6.2 thou/uL (4.0-11.0)
[2021-02-24 08:30] LABS: CALCIUM 6.8 mg/dL (8.5-10.1); POTASSIUM 4.8 mmol/L (3.5-5.1)
--- NOTE | 2021-02-24 09:03 | NUR ---
OSTOMY CARE; AWAKE, ALERT, COOPERATIVE, POUCH ON FOR 4 DAYS? LOOSE EDGES, CHANGED USING 2 PIECE SYSTEM CHELA CUT TO FIT, STOMA PINK VIABLE, PERISTOMAL SKIN INTACT, LOOSE BROWN STOOL, ADAPT RING APPLIED UNDER WAFER, SUPPLIES PLACED AT BS RECOMMENDATIONS; CHANGE POUCH Q 3-5 DAYS AND PRN, EMPTY PRN GAS FITTER HELPER AWARE
--- NOTE | 2021-02-24 12:59 | NUR ---
ON-GOING ASSESSMENT: CM REVIEWED CHART AND SPOKE WITH ATTENDING. ATTENDING STATING PATIENT MAY GET I AND D TODAY. PT REMAINS ON IV ANBX AND ID FOLLOWING FOR CONCERNS SACRAL OSTEOMYELITIS/DECUBITUS ULCER. 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 PT MAY NEED IV ANBX AT TIME OF DISCHARGE PENDING ID RECS. CM WILL CONTINUE TO FOLLOW TO ASSIST NEEDED.
--- NOTE | 2021-02-24 13:11 | HC ---
[facility] [place] [address] CONSULTATION Name: MARCO FOFANA Room #: 439-P ADM IN M.R.#: [id number] Admission: 02/22/21 Attend Phys: Roosevelt Gallego MD Discharge: Date of : 60 Report #: [id number] THIS REPORT FOR: cc: Ramón Almeida MD, Srinath MD Barry,Guillermo Parker MD ~ DATE OF SERVICE: 02/23/2021 INFECTIOUS DISEASE CONSULTATION ATTENDING PHYSICIAN: Dr. Gallego. REASON FOR EVALUATION: Sacral osteomyelitis. HISTORY OF PRESENT ILLNESS: Chart reviewed and the patient examined. This is a 60-year-old woman known to our service. There is significant medical history given her age, diabetes mellitus, has been complicated by vasculopathy, has poor mobility, chronic decubitus ulcer, has been followed by the wound care, recently has been hospitalized with complicated urinary tract infection, polymicrobial, treated with antibiotics. She was at felt to a change including a hard mass associated with the lateral aspect of the sacral wound. She was referred to the Emergency Room, underwent evaluation including CT imaging, identify specifically diffuse fatty infiltration of the liver, generalized edema and anasarca, ulcer over the sacral region reveals sacral ostectomy. She also has severe pain associated with the site. It is not clear that she had fevers, chills. Her appetite has been diminished, again not clear if things have changed. Denies significant pulmonary related complaints. She is maintained on room air. Additional evaluation noted profound anemia with hemoglobin of 7.2 and albumin is very low at 1.2. Lactic acid 3.0. Subsequent repeated serially 2.7-1.3 most recently. Today, blood cultures collected at time of admission, they are sterile thus far. Coronavirus testing was negative as well. She was empirically started on antibiotics with vancomycin. Review of previous cultures dating back to June of this year had polymicrobial growth including Gram-negative, specifically Acinetobacter that was multiply resistant and Pseudomonas. ALLERGIES: LISTED TO PENICILLINS WHICH CAUSES URTICARIA, CEPHALEXIN AND CONTRAST DYE. CURRENT MEDICATIONS: Include duloxetine, levothyroxine, pantoprazole, famotidine, atorvastatin, hydrocodone, insulin, vancomycin, p.r.n. analgesics and antiemetics. PAST MEDICAL AND SURGICAL HISTORY: As described above, diabetes mellitus, history of hypothyroidism, chronic renal insufficiency, chronic low back pain, previous gastric bypass, bilateral [id number] amputations, history of [facility] [address] [place] [address] CONSULTATION Name: MARCO FOFANA Room #: 439-P [facility]#: [id number] Admission: 02/22/21 Attend Phys: Roosevelt Gallego MD Discharge: Date of : 60 Report #: [id number] depression, fibromyalgia, bipolar disease, PTSD, anxiety, borderline personality disorder. SOCIAL HISTORY: She is disabled, lives in a facility. FAMILY HISTORY: Noncontributory. REVIEW OF SYSTEMS: Unremarkable with the exception of the above. PHYSICAL EXAMINATION: GENERAL: She appears chronically ill and undernourished. She is somewhat confused. She has pwad-yj-afywinrk distress secondary to the pain. VITAL SIGNS: Temperature 97.8, pulse 77, respirations 18, blood pressure 114/63. SKIN: Warm, dry, no rashes. HEENT: Normocephalic. Extraocular muscles intact. NECK: Supple. LUNGS: Diminished breath sounds, otherwise clear. HEART: Regular. I do not appreciate murmur. ABDOMEN: Mildly distended, nontender. GENITOURINARY AND RECTAL: Deferred. LABORATORY DATA: Electrolytes: Sodium 138, potassium 4.4, chloride 105, bicarbonate is 21, anion gap of 12, BUN and creatinine 54 and 1.3, glucose of 87. Albumin 1.2, total protein of 4.8. LFTs unremarkable. CBC: White count of 10.4, H and H 7.2 and , platelets of 222. ASSESSMENT AND PLAN: Sacral decubitus ulcer that is chronic in nature, some question of underlying osteomyelitis. We will try to obtain records. It is clear that she has had a lot of treatment for this. Last debrided earlier this year. Unclear what the followup has been. She does have significant pain apparently at this point with the wound. She does have hypersensitivities, so we held off on starting empiric therapy, would favor evaluation for surgery and possible debridement as required. Obtain deep tissue cultures. At this point, she is not overtly toxic. She is profoundly hypoalbuminemic as well as anemic. Try to address those as well. This is due to incentive spirometry. Overall, she is quite tenuous at this point, try to monitor expectantly. <ELECTRONICALLY SIGNED> By: Guillermo Duong MD 02/24/21 1311 [id number] Guillermo Duong MD /nt
[2021-02-24 16:48] VITALS: BP 112/82
--- NOTE | 2021-02-24 19:18 | NUR ---
ASSUMED PT CARE THIS AM. PT HAS IV SITE ON R HAND. PT IS ACCUCHECK ACHS. PT IS TURN Q2H AND HAS SPECIAL MATTRESS. INFORMED PHARMACIST THAT VANCO TROUGH WAS 27 AND HOLD VANCO THIS AM. DID WOUND CARE ON MIDBACK AND SACRAL. PT HAS MONTAGUE AND COLOSTOMY IN PLACE. PT WILL BE NPO AFTER MIDNIGHT AND WILL HAVE I&D TOMORROW AT 0930. PT C/O OF PAIN AND GIVEN PAIN MEDICATION PER PT REQUEST. ENDORSE NIGHT NURSE. WILL CONTINUE TO MONITOR PT. FOLLOW POC.
[2021-02-24 19:30] VITALS: BP 101/72
--- NOTE | 2021-02-25 02:00 | NUR ---
PT ALERT AND ORIENTED. Q2HR REPOSITIONING PROVIDED. PT C/O PAIN TO BACK AND SACCRUM, PAIN MEDS GIVEN WITH RELIEF.AFEBRILE. GOOD U/O NOTED VIA MONTAGUE CATHETER.COLOSTOMY PATENT.PLAN FOR I/D OF WOUND TOMORROW.NPO AFTER MIDNOC.CALL LIGHT WITHIN REACH.
[2021-02-25 05:00] VITALS: BP 107/42
[2021-02-25 07:30] VITALS: BP 104/66
--- NOTE | 2021-02-25 07:56 | HC ---
[facility] [place] [address] CONSULTATION Name: MARCO FOFANA Room #: 439-P ADM IN M.R.#: [id number] Admission: 02/22/21 Attend Phys: Roosevelt Gallego MD Discharge: Date of : 60 Report #: [id number] THIS REPORT FOR: cc: Ramón Almeida MD, Srinath MD Althoff,Bo Taylor MD ~ DATE OF SERVICE: 02/23/2021 CHIEF COMPLAINT: Sacral, bilateral ischial and upper back pressure ulcerations. HISTORY OF PRESENT ILLNESS: This is a 60-year-old female patient whom I have seen in the past. She lives at [facility] and she was admitted here for worsening sacral wound. She has recent hospitalization at [facility] for urinary tract infection. She returned to [place] on 02/03/2021. The patient notes some pain in her back and sacral region. I have been asked to see her with regard to wound care. PAST MEDICAL HISTORY: Positive for chronic osteomyelitis, depression, diabetes, peripheral vascular disease, bilateral above knee amputations. SOCIAL HISTORY: The patient is a previous smoker, 28-yadc-qafq history. Lives in nursing care facility. MEDICATIONS: At this time include hydrocodone, insulin, polyethylene glycol, metformin, oxycodone, cholecalciferol, ferrous sulfate, meropenem, levothyroxine, omeprazole, atorvastatin, Latuda, Cymbalta, Eliquis, Lyrica, miconazole and minocycline. FAMILY HISTORY: Noncontributory. REVIEW OF SYSTEMS: CONSTITUTIONAL: The patient denies fever, chills or weight loss. NEUROLOGICAL: The patient denies focal weakness, numbness, tingling. EYES: The patient denies visual changes, redness or drainage. ENT: The patient denies nose, nasal drainage, sore throat. CARDIOVASCULAR: The patient denies chest pain, palpitations, diaphoresis. PULMONARY: No cough, shortness of breath. GASTROINTESTINAL: No nausea, vomiting. ORTHOPEDIC: The patient has bilateral lower extremity amputations. Others systems in a 14-point systems are negative. PHYSICAL EXAMINATION: VITAL SIGNS: At this time include, temperature 36.6, pulse 77, respiration 18, blood pressure 114/63. GENERAL: This is a chronically ill-appearing female patient who appears to be in moderate discomfort. [address] [address] CONSULTATION Name: MARCO FOFANA Room #: 439-P [facility] IN .R.#: [id number] Admission: 02/22/21 Attend Phys: Roosevelt Gallego MD Discharge: Date of : 60 Report #: [id number] HEENT: Normocephalic. No clear. NECK: Supple. LUNGS: Clear. ABDOMEN: Soft. EXTREMITIES: Examination of the back demonstrates a mid thoracic and lumbar pressure ulcer, sacral pressure ulcer, bilateral ischial pressure ulcerations. The ischials are more superficial the sacral and thoracolumbar area are stage IV. There is moderate fibrin and some granulation tissue. LABORATORY STUDIES: Include white blood cell count 10,000 with a hemoglobin of 6.3; hematocrit of 22.5. COVID-19 is negative. CLINICAL IMPRESSION: Stage IV pressure ulcer into the mid lower back and stage IV sacral pressure ulceration, stage III pressure ulcer and bilateral ischial tuberosities. RECOMMENDATIONS: At this point in time, we will recommend quarter strength Dakin's moist gauze to these areas. She may need lower last night with q. 2 hour turning and positioning, aggressive nutritional support. I think she will require some surgical debridement likely [facility] will ask Dr. Alcala to see her for such. I will recommend a true low air loss mattress with q. 2 hour turning and positioning. I appreciate being asked to see her in consultation. <ELECTRONICALLY SIGNED> By: Bo Alcala MD 02/25/21 0756 [id number] Bo Alcala MD /nt
[2021-02-25 08:15] VITALS: BP 104/66
[2021-02-25 12:55] LABS: HEMATOCRIT 24.8 % (37.0-47.0); HEMOGLOBIN 8.1 gm/dL (12.0-15.0); MCH 30.7 pg (26.0-34.0); MCHC 32.8 g/dL (28.0-37.0); MCV 93.9 fL (80.0-100.0); RBC 2.64 mil/uL (4.20-5.00); RDW 19.8 % (10.5-14.5); WBC 7.3 thou/uL (4.0-11.0)
--- NOTE | 2021-02-25 12:57 | NUR ---
TOMASZ reviewed chart and spoke with nursing and attending physician. Pt had I&D this morning. Cultures are pending. Pt is on IV abx. Pt may be ready for discharge back to [facility] over the holiday weekend. TOMASZ faxed clinical updates to [facility] for review. TOMASZ spoke with JESSICA Bourne at [facility], who confirms they are able to accept pt back over the weekend if she is ready for discharge. Facility is able to provide IV abx if needed. TOMASZ met with pt at bedside to provide update. Pt is agreeable with discharge plan. TOMASZ attempted to update pt's mother, Juana. Both contact numbers listed are not in service. Staff to contact [facility] if pt is ready for discharge over the weekend, and ask for Ilia discharge door operator, to coordinate discharge. Discharge ppwk will need to be faxed to [facility]. Chart will need to be copied and nursing will need to call report. TOMASZ is available to assist as needed. ASHBURN--
--- NOTE | 2021-02-25 18:07 | NUR ---
VAT CONSULTED FOR PICC PLACEMENT. CONSENT ,ORDER,LABS,MEDS,HX VERIFIED. DISCUSSED BENEFITS AND RISK OF PICC, PT VERBALIZED UNDERSTANDING AND STATED HAS BLOCKAGE ON R SIDE PREVIOUS PICC UNABLE PASS SHOULDER AREA. BENOIT BASILIC WAS WIDELY PATENT WITH USG. 4FR SL POWER PICC TRIMMED TO 45CM INSERTED TO 0CM. PICC VERIFED WITH PEAKED P-WAVES ON 3CG. PICC RELEASED FOR IMMEDIATE USE PER PROTOCOL. PT TOLERATED WELL
[2021-02-25 20:40] VITALS: BP 113/77
--- NOTE | 2021-02-26 03:24 | NUR ---
PT IS A/O X4 AND IS ON BED REST. ROOM AIR. VSS. AFEBRILE. MEDICATIONS GIVEN PER MAR. DRSGS C/D/I. C/O PAIN. PRN PAIN MEDICATION GIVEN PER MAR. PT IS PROGRESSING TOWARDS PLAN OF CARE GOALS. FALL PRECAUTIONS IN PLACE, CALL LIGHT IS WITHIN REACH. WILL CONTINUE TO MONITOR.
[2021-02-26 07:31] VITALS: BP 128/79
[2021-02-26 11:11] VITALS: BP 128/79
--- NOTE | 2021-02-26 15:10 | NUR ---
ASSUMED CARE OF PT AT 0700 THIS MORNING. PT IS A/OX2 AND CONFUSED. PT IS FROM [facility] AND HAS LARGE DECUB ALCERATION ON SACRAL AEA. PT HAS NEW DRESSING ON WOUND THAT IS C/D/I. ASSESSMENTS NOTED IN CHART AND IS OTHERWISE UNREMARKABLE. PICC IN LT UPPER ARM. IV IN RT HAND. FALL PRECAUTIONS ARE IN PLACE. MEDS AND TX GIVEN NEEDED AND SCHEDULED. WILL MONITOR AND NOTE ANY CHANGES.
[2021-02-26 15:30] VITALS: BP 133/84
[2021-02-26 20:25] VITALS: BP 111/75
[2021-02-26 21:45] LABS: CALCIUM 6.8 mg/dL (8.5-10.1); CREATININE 0.9 mg/dL (0.6-1.0); POTASSIUM 4.7 mmol/L (3.5-5.1)
--- NOTE | 2021-02-27 02:58 | NUR ---
ASSUMED CARE OF PT AT 190. BEDSIDE REPORT RECIEVED. IVAN ASSESSMENT COMPLETE. PT DENIES ANY PAIN AT THIS TIME. MEDS GIVEN PER AUG. IV ABT AND FLUIDS RUNNING PER AUG. COLOSTOMY CHANGED AROUND 1999 D/T LEAKING. MONTAGUE CARE COMPLETE. MOJGAN UMAÑA PICC CDI C DSG AND PATENT. Q2 TURNS CONTINUING. ALL NEEDS MET. CALL LIGHT IN REACH.
[2021-02-27 03:53] VITALS: BP 124/76
[2021-02-27 05:37] LABS: ABSOLUTE NEUTROPHILS 4.2 thou/uL (1.4-8.2); BASOPHILS 0.5 % (0.0-2.0); EOSINOPHILS 1.2 % (0.0-3.0); HEMOGLOBIN 6.5 gm/dL (12.0-15.0); LYMPHOCYTES 25.4 % (24.0-44.0); MCH 30.9 pg (26.0-34.0); MCV 93.5 fL (80.0-100.0); MONOCYTES 9.9 % (1.0-8.0); PLATELET COUNT 153 thou/uL (150-400); RDW 20.1 % (10.5-14.5); WBC 6.6 thou/uL (4.0-11.0)
[2021-02-27 05:39] LABS: HEMATOCRIT 19.7 % (37.0-47.0)
[2021-02-27 06:02] LABS: ALBUMIN 1.1 g/dL (3.4-5.0); CALCIUM 6.9 mg/dL (8.5-10.1); CREATININE 0.7 mg/dL (0.6-1.0); MAGNESIUM 1.5 mg/dL (1.8-2.4); POTASSIUM 4.4 mmol/L (3.5-5.1); TOTAL BILIRUBIN 0.3 mg/dL (0.2-1.0); TOTAL PROTEIN 4.1 g/dL (6.4-8.2)
--- NOTE | 2021-02-27 06:04 | NUR ---
Notified Kenyatta MARROQUIN of critical lab result, hematacrit of 19.7, leave message notifyipromise scott. will attempt to notify [facility] again
--- NOTE | 2021-02-27 06:13 | NUR ---
Notified tyler MARROQUIN of critical lab. new order to transfuse 1 unit of PRBCs and recheck hemoglobin 1 hour after transfusion complete
[2021-02-27 08:05] VITALS: BP 133/80
--- NOTE | 2021-02-27 09:14 | NUR ---
PT LYING IN SPECIAL MATTRESS FOR WOUNDS WITH LE ELEVATED. PT STATED SHE HAS PAIN TO BOTTOM OF 8 ON 1-10 SCALE. PT SKIN COLOR IS PALE, NOTICED PETICHIE AROUND FINGERS. PT HAS PICC LEFT UPPER ARM WITH FLUIDS INFUSING, SL TO RT HAND. PT DRINKING WATER WITHOUT ANY ISSUES. PT HAS MONTAGUE TO DD WITH CLEAR YELLOW URINE AND HAS COLOSTOMY TO RT UPPER ABD. ADM HYDROCODONE 5MG 2 TABS FOR PAIN TO BUTTOCKS. PT ABLE TO FEED SELF MEALS WITH TRAY SET UP.
[2021-02-27 10:25] VITALS: BP 107/68; BP 128/80
--- NOTE | 2021-02-27 10:32 | NUR ---
STARTED RBC BLOOD UNIT AT THIS TIME. VS OBTAINED.
--- NOTE | 2021-02-27 11:00 | NUR ---
PT TOLERATING BLOOD AT THIS TIME.
--- NOTE | 2021-02-27 14:00 | NUR ---
ADM HYDROCODNE 5MG PO ONE TAB DUE TO MED OUT OF PYXIS. PT FIXATED WHEN SHE WILL GET THE SECOND PILL FOR PAIN. PT COLOSTOMY OPENED UP AND LEAKED ON BED LARGE AMT. REPLACED COLOSTOMY WAFER AND BAG. HUNG MAG 2GM IV X1 PER ORDERS. PT ALSO GETTING IV ABX RUNNING TO RT HAND.
--- NOTE | 2021-02-27 14:15 | NUR ---
BLOOD IF FINISHED AND PT TOLERATING BLOOD, NO ISSUES.
--- NOTE | 2021-02-27 14:52 | NUR ---
ADM SECOND HYDROCODONE 5MG TAB AT THIS TIME.
[2021-02-27 15:33] VITALS: BP 122/77
[2021-02-27 18:25] LABS: HEMATOCRIT 27.9 % (37.0-47.0)
[2021-02-27 18:27] LABS: HEMOGLOBIN 9.2 gm/dL (12.0-15.0)
--- NOTE | 2021-02-27 18:34 | NUR ---
ADM HYDROCODONE 5MG 2 TABS PO FOR PAIN TO COCCYX. PT ASKED IF THERE WAS 2 TABS IN CUP.
[2021-02-27 20:21] VITALS: BP 114/68
[2021-02-28 06:08] LABS: ABSOLUTE NEUTROPHILS 3.9 thou/uL (1.4-8.2); BASOPHILS 0.4 % (0.0-2.0); EOSINOPHILS 2.9 % (0.0-3.0); HEMATOCRIT 22.8 % (37.0-47.0); HEMOGLOBIN 7.5 gm/dL (12.0-15.0); LYMPHOCYTES 25.9 % (24.0-44.0); MCH 31.2 pg (26.0-34.0); MCHC 32.8 g/dL (28.0-37.0); MCV 95.1 fL (80.0-100.0); MONOCYTES 11.9 % (1.0-8.0); PLATELET COUNT 168 thou/uL (150-400); POLYS 58.9 % (36.0-66.0); RDW 18.5 % (10.5-14.5); WBC 6.6 thou/uL (4.0-11.0)
[2021-02-28 06:22] LABS: CALCIUM 7.1 mg/dL (8.5-10.1); MAGNESIUM 1.8 mg/dL (1.8-2.4); PHOSPHORUS 3.2 mg/dL (2.6-4.7); POTASSIUM 4.5 mmol/L (3.5-5.1)
[2021-02-28 07:47] VITALS: BP 113/66
[2021-02-28 15:02] VITALS: BP 113/66
[2021-02-28 15:07] VITALS: BP 111/75
--- NOTE | 2021-02-28 15:11 | NUR ---
ASSUMED CARE OF PT AT 0700 THIS MORNMING. PT IS A/OX3 AND IS FORGETFUL. BILAT LOWER EXTREMITY AMPUTEE. WOUNDS ON SACRAL AND BUTTOCKS THAT HAVE BEEN CHANGED THIS AFTERNOON. ASSESSMENTS NOTED ON CHART AND OTHERWISE UNREMARKABLE. FALL PRECAUTIONS ARE IN PLACE. CALL LIGHT AND OTHER NEEDS ARE IN REACH. MEDS AND TX GIVEN NEEDED AND SCHEDULED. WILL MONITOR AND NOTE ANY CHANGES.
[2021-02-28 15:56] LABS: HEMATOCRIT 24.5 % (37.0-47.0)
[2021-02-28 19:50] VITALS: BP 115/76
--- NOTE | 2021-03-01 00:06 | NUR ---
ASSESSED AT START OF SHIFT. PT RESTING IN BED. C/O PAIN HYDROCODONE GIVEN. PT REPOSIITONED FOR COMFORT. DRESSING C/D/I. PICC LINE INTACT ABX GIVEN. FALL PREC IN PLACE AND CALL LIGHT AT REACH WILL CONT TO MONITOR.
[2021-03-01 03:12] LABS: HEMATOCRIT 25.1 % (37.0-47.0); HEMOGLOBIN 8.1 gm/dL (12.0-15.0)
[2021-03-01 03:30] VITALS: BP 119/79
[2021-03-01] MEDS ORDERED: ZINC SULFATE50 MG PO (13:41)
[2021-03-01] MEDS ORDERED: SYNTHROID112 MC1 PO (13:41)
[2021-03-01] MEDS ORDERED: MICONAZOLE NITR15 GM TOP (13:41)
[2021-03-01] MEDS ORDERED: AZACTAM 1 GM VIA1 G1 IV (13:41)
--- NOTE | 2021-03-01 15:06 | NUR ---
DISCHARGE NOTE: TOMASZ reviewed chart and spoke with nursing and attending physician. Pt is medically stable for discharge back to [facility] today. TOMASZ faxed discharge ppwk to [facility] and spoke with JESSICA Bourne at the facility. Confirmed they are able to accept pt back today. Facility arranged for a stretcher van between [phone]. TOMASZ spoke with pt via phone to provide update. Pt is aware and agreeable with discharge plan. Pt worried about missing dinner at the facility SW spoke with Janell at [facility], to request that dinner be saved for pt. TOMASZ placed call to pt's mother to provide update. Number is no longer in service. Chart copy requested from 3W director of community center. Nursing updated and provided with number for report. No additional SW needs identified at this time, but is available to assist should needs arise.
[2021-03-01 18:15] VITALS: BP 119/79
--- NOTE | 2021-03-01 18:22 | NUR ---
ASSUMED CARE OF PT AT 0700 THIS MORNING. PT HAD NO CHANGES SINCE REPORT HANDOFF LAST NIGHT. ASSESSMENTS NOTED IN CHART AND OTHERWISE UNREMARKABLE. CALL LIGHT AND OTHER NEEDS ARE IN PLACE. PT IS TO BE DISCHARGED BACK TO [facility] AND [facility] WILL ARIVE BETWEEN 1600 AND 1700 THIS AFTERNOON. MEDS AND TX GIVEN NEEDED AND SCHEDULED. BOTH BACK AND SACRAL WOUNDS HAVE BEEN REDRESSED AND C/D/I. COLOSOMY APPERATUS KEPT LEAKING AFTER APPLICATION. [facility] ARRIVED AT 1720 AND PT LEFT THE UNIT WITH DISCHARGE PACKET WITH CREW.
== END 2021-03-01 16:51 | DRG 853 ==
LOC: ER 15:46 → 4S 22:33 → EROBS 22:33 → 4S 02-23 00:31
PROVIDERS: Hospitalist; Internal Medicine; Nurse Practitioner Family; Physician Assistant; Specialist; ADMIT Hospitalist; ATTEND Hospitalist
PROC: 30233N1 Transfusion of Nonautologous Red Blood Cells into Peripheral Vein, Percutaneous Approach (ICD-10-PCS; 2021-02-24)
PROC: 0QB10ZZ Excision of Sacrum, Open Approach (ICD-10-PCS; principal; 2021-02-25)
PROC: 05HY33Z Insertion of Infusion Device into Upper Vein, Percutaneous Approach (ICD-10-PCS; 2021-02-25)
DX: A41.9 Sepsis, unspecified organism (principal); E43 Unspecified severe protein-calorie malnutrition; L89.154 Pressure ulcer of sacral region, stage 4; L89.323 Pressure ulcer of left buttock, stage 3; L89.313 Pressure ulcer of right buttock, stage 3; L89.144 Pressure ulcer of left lower back, stage 4; L89.134 Pressure ulcer of right lower back, stage 4; N17.9 Acute kidney failure, unspecified; E87.2 Acidosis; M46.28 Osteomyelitis of vertebra, sacral and sacrococcygeal region; M31.9 Necrotizing vasculopathy, unspecified; N39.0 Urinary tract infection, site not specified; D62 Acute posthemorrhagic anemia; Z20.822 Contact with and (suspected) exposure to COVID-19; G89.29 Other chronic pain; M54.5 Low back pain; M17.0 Bilateral primary osteoarthritis of knee; F31.9 Bipolar disorder, unspecified; E11.42 Type 2 diabetes mellitus with diabetic polyneuropathy; I10 Essential (primary) hypertension; F60.3 Borderline personality disorder; E89.0 Postprocedural hypothyroidism; E11.69 Type 2 diabetes mellitus with other specified complication; E86.0 Dehydration; B96.89 Other specified bacterial agents as the cause of diseases classified elsewhere; F41.9 Anxiety disorder, unspecified; Z89.512 Acquired absence of left leg below knee; Z89.511 Acquired absence of right leg below knee; Z89.612 Acquired absence of left leg above knee; Z89.611 Acquired absence of right leg above knee; Z88.0 Allergy status to penicillin; Z88.8 Allergy status to other drugs, medicaments and biological substances; Z91.041 Radiographic dye allergy status; Z87.891 Personal history of nicotine dependence; Z85.850 Personal history of malignant neoplasm of thyroid; Z82.49 Family history of ischemic heart disease and other diseases of the circulatory system; Z68.35 Body mass index [BMI] 35.0-35.9, adult
CPT/HCPCS: 10100; 10195; 27000; 50010; 50101; 50386; 50403; 57119; 57120; 62110; 62900; 70005

== ENCOUNTER 2021-04-12 11:49 | Inpatient (IN) | payer OTHER ==
[~2021-04-12] VITALS: Ht 170.2 cm; Wt 107.7 kg
--- NOTE | ~2021-04-12 | EMS ---
[address] [address] EMS Patient Care Report Name: MARCO FOFANA Room #: 457-P ADM IN M.R.#: [id number] Admission: 04/12/21 Attend Phys: Harish Stewart MD Discharge: Date of : 60 Report #: [id number] THIS REPORT FOR: //name// Report Transmitted: 04/13/2021 07:43 EMS Care Summary [place], [place]/[facility] Incident [id number] @ 04/12/2021 11:10 Incident [address] [place] [address] [id number] Patient MARCO FOFANA Female, 60 Years 1960 Patient Address [address] [place] [address] [address] [place] [address] Patient History Amputee,Pneumonia,Depression,Sepsis,Pressure Ulcer,Type 2 Diabetes,Cellulitis,Novel Coronavirus (COVID-19), Patient Allergies Food Allergy,Penicillin allergy,Keflex,Iodine, Patient Medications Potassium, Omeprazole, Metformin, Lasix, Melatonin, Vitamin D, Duloxetine, Zyrtec, Polyethlene Glycol, Magnesium Oxide, Other, Oxycodone/ASA, Doxycycline, Atorvastatin, Levothyroxine, Eliquis, Chief Complaint ABNORMAL LABS/WEAK Disposition Transported No Lights/[place] Dispatch Reason Sick Person Transported To [facility] [address] [place] [address] EMS Patient Care Report Name: MARCO FOFANA Room #: 457-P [facility] IN [facility].#: [id number] Admission: 04/12/21 Attend Phys: Harish Stewart MD Discharge: Date of : 60 Report #: [id number] DISPATCHED TO SICK AT [facility]. [place] STAFF REPORTS ABNORMAL LABS TAKEN YESTERDAY WITH LOW HEMOGLOBIN AND THEY ARE BEING TRANSFERRED OUT FOR A BLOOD INFUSION. PT FOUND ALERT AND ORIENTED AND IN BED. PT ROLLED ONTO JIM DIRECTOR MUSEUM OR ZOO AND TEAM LIFTED TO COT WITH SEATBELTS APPLIED. VITALS OBTAINED. PT TRANSPORTED TO [facility] WITH NO CHANGES. PT TEAM LIFTED TO BED AND HANDRAILS UP. REPORT GIVEN TO NURSE. Initial Vitals @11:38P: 95,R: 18,BP: 100/60,CO: 4,SpO2: 98, @11:31P: 90,R: 18,BP: 100/80,Pain: 0/10,GCS: 15,CO: 2,SpO2: 95,Revised Trauma: 12, Assessments @11:21MENTAL:Place Oriented,Person Oriented,Event Oriented,Time Oriented,SKIN:HEENT:Head/Face: No Abnormalities,Neck/Airway: No Abnormalities,LUNG SOUNDS:General: No Abnormalities,Left Upper: No Abnormalities,Right Upper: No Abnormalities,Left Lower: No Abnormalities,Right Lower: No Abnormalities,ABDOMEN:General: No Abnormalities,Left Upper: No Abnormalities,Right Upper: No Abnormalities,Left Lower: No Abnormalities,Right Lower: No Abnormalities,PELVIS//GI:No Abnormalities,EXTREMITIES:Left Arm: Weakness,Left Leg: Weakness,Right Leg: Weakness,Right Arm: Weakness,PULSE:Radial: 2+ Normal,NEURO:No Abnormalities, Impression Generalized Weakness Procedures @11:21 ALS Assessment Response: UnchangedSucceeded @11:21 BLS Assessment Response: Unchanged Timeline 11:07,Call Received 11:07,Dispatch Notified 11:10,Dispatched 11:11,En Route 11:20,On Scene 11:21,At Patient 11:21,ALS Assessment,Response: UnchangedSucceeded, 11:21,BLS Assessment,Response: Unchanged 11:31,BP: 100/80 M,PULSE: 90,RR: 18 R,SPO2: 95 Ox,ETCO2: ,BG: ,PAIN: 0,GCS: 15, 11:34,Depart Scene 11:38,BP: 100/60 M,PULSE: 95,RR: 18 R,SPO2: 98 Ox,ETCO2: ,BG: ,PAIN: ,GCS: , 11:41,At Destination 11:49,Call Closed [address] [address] EMS Patient Care Report Name: MARCO FOFANA Room #: 457-P ADM IN .R.#: [id number] Admission: 04/12/21 Attend Phys: Harish Stewart MD Discharge: Date of : 60 Report #: [id number] Disclaimer v1.1 Copyright 2020 [employer] This EMS Care Summary contains data elements from the applicable legal record (which may be displayed differently). It is designed to provide pertinent information for the following purposes: continuity of care, clinical quality, and state data reporting. The complete legal record is available to ED staff and administrators of the receiving hospital in [facility]'s Patient Tracker. All data is provided "as is."
[2021-04-12 11:49] VITALS: BP 99/54
[~2021-04-12 11:49] MED LIST changes: +ACIDOPHILUS LA1 EAC1 PO; +AZACTAM 1 GM VIA1 G1 IV; +FUROSEMIDE 40 M40 MG PO; +MICONAZOLE NITR15 GM TOP; +MICONAZOLE5 GM TOP; +MINOCYCLINE HC100 M2 PO; +SYNTHROID112 MC1 PO; +VITAMIN B-121000 MC2 PO; +ZINC SULFATE50 MG PO
[2021-04-12 12:10] LABS: BASOPHILS 0.4 % (0.0-2.0); WBC 4.8 thou/uL (4.0-11.0)
[2021-04-12 12:12] LABS: ABSOLUTE NEUTROPHILS 2.8 thou/uL (1.4-8.2); EOSINOPHILS 1.6 % (0.0-3.0); LYMPHOCYTES 26.7 % (24.0-44.0); MCHC 32.5 g/dL (28.0-37.0); MCV 101.8 fL (80.0-100.0); MONOCYTES 12.7 % (1.0-8.0); PLATELET COUNT 230 thou/uL (150-400); POLYS 58.6 % (36.0-66.0); RBC 1.94 mil/uL (4.20-5.00); RDW 15.9 % (10.5-14.5)
[2021-04-12 12:14] LABS: HEMOGLOBIN 6.4 gm/dL (12.0-15.0)
[2021-04-12 12:15] LABS: HEMATOCRIT 19.8 % (37.0-47.0)
[2021-04-12 12:48] LABS: ABSOLUTE NEUTROPHILS 3.3 thou/uL (1.4-8.2); BASOPHILS 0.5 % (0.0-2.0); EOSINOPHILS 1.6 % (0.0-3.0); HEMOGLOBIN 6.6 gm/dL (12.0-15.0); LYMPHOCYTES 22.5 % (24.0-44.0); MCH 33.9 pg (26.0-34.0); MCHC 33.4 g/dL (28.0-37.0); MCV 101.4 fL (80.0-100.0); PLATELET COUNT 236 thou/uL (150-400); POLYS 61.4 % (36.0-66.0); RBC 1.93 mil/uL (4.20-5.00); RDW 15.7 % (10.5-14.5); WBC 5.4 thou/uL (4.0-11.0)
[2021-04-12 12:51] LABS: HEMATOCRIT 19.6 % (37.0-47.0)
[2021-04-12 12:59] LABS: ANION GAP 10 mmol/L (7-16); BUN 31 mg/dL (7-18); CALCIUM 7.4 mg/dL (8.5-10.1); CHLORIDE 106 mmol/L (98-107); CO2 22 mmol/L (21-32); CREATININE 1.1 mg/dL (0.6-1.0); GLUCOSE 78 mg/dL (74-106); POTASSIUM 3.9 mmol/L (3.5-5.1); SODIUM 138 mmol/L (136-145)
[2021-04-12 13:03] LABS: APTT 49.2 Seconds (24.5-32.8); INR 1.02; PROTIME 11.1 Seconds (10.5-12.1)
[2021-04-12 13:08] LABS: ALBUMIN 0.9 g/dL (3.4-5.0); SGOT 34 U/L (15-37); SGPT 27 U/L (30-65); TOTAL BILIRUBIN < 0.1 mg/dL (0.2-1.0); TOTAL PROTEIN 4.3 g/dL (6.4-8.2)
--- NOTE | 2021-04-12 14:48 | EKG ---
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: MARINA : 1960 Requested By: Jae Franco Order Number: [id number] MD: Brown Woodward Measurements Intervals [place] Rate: 89 P: 20 DE: 161 QRS: 46 QRSD: 75 T: QT: 487 QTc: 593 Interpretive Statements Sinus rhythm RSR' in V1 or V2, probably normal variant Borderline repolarization abnormality Artifact in lead(s) II,III,aVR,aVL,V1 Compared to ECG 10/10/2018 07:50:46 RSR' in V1 or V2 now present Sinus tachycardia no longer present Atrial premature complex(es) no longer present ST (T wave) deviation no longer present Electronically Signed On 04-12-2021 14:48:39 CDT by Brown Woodward [email or web address] <ELECTRONICALLY SIGNED> By: Brown Woodward MD, FACC 04/12/21 1448 1151 [id number] Brown Woodward MD, FACC /EPI
[2021-04-12] MEDS ORDERED: ELIQUIS5 MG PO (15:38)
[2021-04-12 15:51] VITALS: BP 103/57
[2021-04-12] MEDS ORDERED: MELATONIN3 M1 PO (15:51)
[2021-04-12] MEDS ORDERED: MICONAZOLE5 GM TOP (15:52)
[2021-04-12 15:53] VITALS: BP 94/57
[2021-04-12 16:37] LABS: % SATURATION 41 % (20-39); IRON 43 ug/dL (50-170); TIBC 105 ug/dL (250-450)
[2021-04-12 17:07] LABS: FOLIC ACID 4.1 ng/mL (8.6-58.9)
--- NOTE | 2021-04-12 19:11 | NUR ---
A/O, complained pain in the back, pain medication given and worked. no nausea or vomiting. blood was not ready until 6:20pm, the night nurse agreed to have the blood transfusion done.
[2021-04-12 19:29] VITALS: BP 102/50
[2021-04-12 19:49] VITALS: BP 101/62; BP 109/58
[2021-04-13 00:47] VITALS: BP 112/56
--- NOTE | 2021-04-13 02:16 | NUR ---
PT CARE ASSUMED WITH PT IN BED RESTING AND WATCHING FOR BLOOD TRANSFUSION.PT IS A/O X4.PT IS ON BEDREST AND IS KENDRICK BKA .PT IS ACCUCHECK ACHS.BLOOD TRANSFUSION DONE SUCCESSFULLY.PT HAS A MONTAGUE AND COLOSTOMY .BLOOD TRANSFUSION DONE AND COMPLETED WITH NO REACTION AND VS WNL .WILL CONTINUE TO MONITOR PER POC
[2021-04-13 05:27] VITALS: BP 110/60
[2021-04-13 07:44] VITALS: BP 99/64
[2021-04-13 08:09] LABS: HEMATOCRIT 20.4 % (37.0-47.0); HEMOGLOBIN 7.1 gm/dL (12.0-15.0)
[2021-04-13 11:57] VITALS: BP 96/58
--- NOTE | 2021-04-13 15:41 | NUR ---
PT ADMITTED RELATED TO [facility]. CM REVIEWED CHART AND SPOKE WITH CARE TEAM. CM MET WITH PT AT BEDSIDE THIS DAY. PT APPEARED TO BE A&O X4. CM ROLE INTRODUCED. PT INDICATED SHE LIVES IN LTC OVER AT [facility]. PT INDICATED SHE IS BED BOUND AT THE FACILITY AND THAT SHE HAS A CATHETER AND A COLOSTOMY. WHEN PT DOES GET OUT OF BED A LIFT DEVICE IS USED. PT INDICATED SHE PLAND TO RETURN TO [facility] ONCE MEDICALLY STABLE. GI IS CONSULTED. CM FOLLOWING REGARDING DC PLANNING.
--- NOTE | 2021-04-13 17:43 | NUR ---
pT a & o X4. pt VS STABLE. PT IS ROOM AIR. PT HAS MONTAGUE AND COLOSTOMY IN PLACE. PT RECEIVED MEDICTIONS ORDERED AND ALSO RECEIVED PRN MEDICATIONS. PT IS NSR ON THE TELE. PT IS ABLE TO MAKE NEEDS KNOWN.
[2021-04-13 19:41] VITALS: BP 108/59
[2021-04-14] VITALS (14 sets, daily range): BP systolic 100–126; BP diastolic 55–66
--- NOTE | 2021-04-14 04:03 | NUR ---
ASSUMED PT CARE THIS PM. PT IS ALERT AND ORIENTED X4. PT IS BEDREST AND Q2HR TURN. PT REFUSED WOUND DRSG ON THIS SHIFT. PT HAS PICC WITH SINGLE LUMEN TO BENOIT WITH NO SIGN OF REDNESS. PT HAS MONTAGUE AND COLOSTOMY BAG IN PLACE. MEDS WERE GIVEN PER EMAR ORDERS. PT DID NOT VERBALIZE ANY CONCERNS. FALL PRECAUTIONS IN PLACE. WILL CONTINUE TO MONITOR.
[2021-04-14 06:34] LABS: HEMOGLOBIN 6.7 gm/dL (12.0-15.0); MCH 34.3 pg (26.0-34.0); MCHC 34.2 g/dL (28.0-37.0); MCV 100.3 fL (80.0-100.0); RBC 1.95 mil/uL (4.20-5.00); RDW 15.7 % (10.5-14.5)
[2021-04-14 06:37] LABS: WBC 4.3 thou/uL (4.0-11.0)
[2021-04-14 06:42] LABS: CALCIUM 7.5 mg/dL (8.5-10.1); HEMATOCRIT 19.6 % (37.0-47.0); POTASSIUM 4.7 mmol/L (3.5-5.1)
--- NOTE | 2021-04-14 10:46 | NUR ---
Received pt NPO is scheduled for I& D today. Hgb at 6.7 from pm shift, informed. 1 unit of RBC initiated. Pt was taken down to OR at 10:20 am.
--- NOTE | 2021-04-14 16:34 | NUR ---
CARE TEAM INDICATED THAT PT IS TO HAVE DEBRIDEMENT OF EXTREMITY WOUNDS. CM FOLLOWING REGARDING DC PLANNING. PT TO RETURN TO [place] ONCE MEDICALLY STABLE.
[2021-04-15 01:26] VITALS: BP 93/55
--- NOTE | 2021-04-15 03:57 | NUR ---
ASSUMED CARE OF PT AT 1900. BEDSIDE REPORT RECIEVED. IVAN ASSESSMENT COMPLETE. OSTOMOY CARE COMPLETE. MONTAGUE CARE COMPLETE. MEDS GIVEN PER AUG. TIFFANIE LAZAR PIC SECURE PATENT. LABS DRAWN ORDERED. PAIN MEDS GIVEN ORDERED. REPOSITIONING Q2 HOURS. HOURLY ROUNING CONTINUING. CALL LIGHT IN [facility]. [facility] PROVIDED FOR PT.
[2021-04-15 05:06] VITALS: BP 99/63
[2021-04-15 07:00] VITALS: BP 97/59
[2021-04-15 11:10] LABS: HEMATOCRIT 22.7 % (37.0-47.0); HEMOGLOBIN 7.5 gm/dL (12.0-15.0); MCH 32.6 pg (26.0-34.0); MCHC 33.1 g/dL (28.0-37.0); MCV 98.7 fL (80.0-100.0); RBC 2.3 mil/uL (4.20-5.00); RDW 18.1 % (10.5-14.5); WBC 7.1 thou/uL (4.0-11.0)
[2021-04-15 11:24] LABS: CALCIUM 7.5 mg/dL (8.5-10.1); CREATININE 1.1 mg/dL (0.6-1.0); POTASSIUM 4.8 mmol/L (3.5-5.1)
[2021-04-15 12:00] VITALS: BP 112/68
--- NOTE | 2021-04-15 14:50 | NUR ---
PT HAD DEBRIDEMENTS OF LE WOUNDS. CARE TEAM INDICATED THAT PT WILL BE HERE OVER THE WEEKEND. PLAN IS FOR PT TO RETURN TO [facility] MEDICALLY STABLE. CM FOLLOWING REGARDING DC PLANNING.
[2021-04-15 16:00] VITALS: BP 103/65
[2021-04-15 19:18] VITALS: BP 104/54
--- NOTE | 2021-04-15 20:08 | NUR ---
Assumed pt care this am, vs stable. PICC line in place patent and draws blood. Colostomy patent no infection noted, bag and wafer changed. FC draning light yellow urine. Dressing c/d/i, would refuse Q2 turns at times. on low air loss matress. POC followed, pain managed with medications partial relief is noted.
[2021-04-16 06:37] LABS: CALCIUM 7.5 mg/dL (8.5-10.1); MCH 33.1 pg (26.0-34.0); MCHC 33.3 g/dL (28.0-37.0); MCV 99.2 fL (80.0-100.0); POTASSIUM 5.4 mmol/L (3.5-5.1); RBC 1.92 mil/uL (4.20-5.00); RDW 17.3 % (10.5-14.5); WBC 3.7 thou/uL (4.0-11.0)
[2021-04-16 07:19] LABS: HEMATOCRIT 19.1 % (37.0-47.0); HEMOGLOBIN 6.4 gm/dL (12.0-15.0)
--- NOTE | 2021-04-16 08:11 | NUR ---
PT CONTINUES TO BE ON PAIN MANAGEMENT, COMPLIANT OF TX, NO ADVERSE REACTION NOTED, REPOSITIONED EVERY TWO HOURS, REPORTS NO DISCOMFORT, WILL CONTINUE TO MONITOR.
[2021-04-16 08:40] VITALS: BP 95/63
[2021-04-16 12:42] VITALS: BP 115/72
[2021-04-16 16:28] VITALS: BP 100/62; BP 107/72
[2021-04-16 16:36] VITALS: BP 96/62
--- NOTE | 2021-04-16 19:31 | NUR ---
Assumed pt care at 7am. Pt in bed most of the time today.Repositioned q2h for comfort. Assessment completed.vss.Pt c/o back and bottom pain. oxy 2 tabs given x2 this shift with relief. Dr roland notified about low hgb early this shift.Order noted.One unit of prbc given today and no tranfusion rx noted. Colostomy bag replaced x2 today. Pt has good appetite and oral intake reduced due to constant colostomy bag explosion. Report off to curtis lin.
--- NOTE | 2021-04-17 05:03 | HC ---
[facility] [place] [address] CONSULTATION Name: MARCO FOFANA Room #: 457-P ADM IN .R.#: [id number] Admission: 04/12/21 Attend Phys: Harish Stewart MD Discharge: Date of : 60 Report #: [id number] THIS REPORT FOR: cc: Ramón Almeida MD, Srinath MD Barry,Guillermo Parker MD ~ DATE OF SERVICE: 04/16/2021 INFECTIOUS DISEASE CONSULTATION ATTENDING PHYSICIAN: Dr. Stewart. REASON FOR EVALUATION: Chronic decubitus ulcers involving bilateral ischial sites as well as sacrum, complicated by osteomyelitis in particular right ischial tuberosity. HISTORY OF PRESENT ILLNESS: Chart reviewed. The patient examined. This is a 60-year-old woman known to myself, history of longstanding decubitus ulcers, has underlying diabetes mellitus, vasculopathy, poor mobility, lives in a facility, who was actually hospitalized in 02/2021 with sacral osteomyelitis, who presented with complaints of severely low hemoglobin and during the evaluation was felt to have infected ulcers. She did undergo debridement down to bone. Bone culture from the right ischial tuberosity with growth of polymicrobial etiology including Proteus as well as Corynebacterium. She notes she has significant amount of pain associated with the site. She has received 3 units of packed red cells during this hospitalization and had received multiple units previous to this. It is not clear if she has had significant fevers. Admits to diminished appetite and p.o. intake. Does have intermittent issues of dyspnea. She has been started on aztreonam. ALLERGIES: IT IS NOTABLE SHE HAS ALLERGIES TO PENICILLIN, CEPHALOSPORINS, WHICH SHE DESCRIBES HIVES. ALLERGIES INITIALLY INCLUDE CONTRAST DYE AND ASPARTAME. CURRENT MEDICATIONS: Include aztreonam, folic acid, multivitamin, duloxetine, pantoprazole, levothyroxine, melatonin, lurasidone, atorvastatin, pregabalin, oxycodone. PAST MEDICAL HISTORY: As described above, diabetes mellitus which is complicated by diffuse vasculopathy, bilateral below-knee amputations due to osteomyelitis, chronic ulcerations that is sacral decubitus bilateral ischial sites. She is post-colostomy placement. She has bipolar disorder, anxiety, peripheral neuropathy, history of thyroid cancer with hypothyroidism, fibromyalgia, chronic back pain, atrial fibrillation. SOCIAL AND FAMILY HISTORY: Available in chart. [address] [place] [address] CONSULTATION Name: MARCO FOFANA Room #: 457-P [facility] IN .R.#: [id number] Admission: 04/12/21 Attend Phys: Harish Stewart MD Discharge: Date of : 60 Report #: [id number] REVIEW OF SYSTEMS: Otherwise, unremarkable with the exception of the above. PHYSICAL EXAMINATION: GENERAL: She appears chronically ill and undernourished. She is anxious. She is in moderate to marked degree of discomfort, she states secondary to the wound pain. VITAL SIGNS: Temperature 99.7, pulse 103, respirations 22, blood pressure 96/62. SKIN: Warm, dry, no rashes. HEENT: Normocephalic. Extraocular muscles intact. NECK: Supple. LUNGS: Few scattered coarse breath sounds, overall diminished. HEART: Tachycardic, irregular. I do not appreciate a murmur. ABDOMEN: Somewhat distended, mildly firm, nontender. LABORATORY DATA: Wound culture from the left ischial tuberosity notes Proteus and Corynebacterium of 2 types. The bone culture from the right ischial tuberosity has growth of Proteus mirabilis. Electrolytes: Sodium 140, potassium 5.4, chloride 109, bicarbonate 23, anion gap of 8, BUN and creatinine 33 and 1.0. CBC: White count 3.7. Hemoglobin 6.4 pretransfusion, hematocrit 19.1. Platelets of 173. ASSESSMENT AND PLAN: Chronic osteomyelitis and multiple decubitus ulcers. The patient has had a heavy disease burden including diabetes and vasculopathy, previous history of osteo with bilateral below-knee amputations. We will continue empiric therapy with antibiotics, add vancomycin to the aztreonam. Continue wound care as prescribed with offloading to the extent possible. Try to optimize her nutritional status. We will add incentive spirometry. It is a very difficult situation. Symptomatic pain control. <ELECTRONICALLY SIGNED> By: Guillermo Duong MD 04/17/21 0503 [id number] Guillermo Duong MD /nt
--- NOTE | 2021-04-17 05:41 | NUR ---
ASSUMED CARE AT 1900, EMPTIED OSTOMY, PT COMPLIANT OF TX, NO ADVERSE REACTION, CONTINUES TO BE ON PAIN MANAGEMENT, WILL CONTINUE TO MONITOR.
[2021-04-17 08:36] VITALS: BP 102/56
[2021-04-17 12:01] LABS: BASOPHILS 0.2 % (0.0-2.0); HEMATOCRIT 20.1 % (37.0-47.0)
[2021-04-17 12:03] LABS: ABSOLUTE NEUTROPHILS 3.2 thou/uL (1.4-8.2); EOSINOPHILS 0.8 % (0.0-3.0); HEMOGLOBIN 6.6 gm/dL (12.0-15.0); LYMPHOCYTES 18.5 % (24.0-44.0); MCH 32.6 pg (26.0-34.0); MCHC 33.1 g/dL (28.0-37.0); MCV 98.6 fL (80.0-100.0); MONOCYTES 18.9 % (1.0-8.0); PLATELET COUNT 152 thou/uL (150-400); POLYS 61.6 % (36.0-66.0); RBC 2.04 mil/uL (4.20-5.00); RDW 17.1 % (10.5-14.5); WBC 5.2 thou/uL (4.0-11.0)
[2021-04-17 16:21] VITALS: BP 109/60
--- NOTE | 2021-04-17 17:05 | NUR ---
RN ASSUMED PT'S CARE AT 0700AM, PT IS A&OX4, PT IS CONTINUING IV ABX, WOUND CARE AND PAIN MANAGEMNET, PT'S VS ARE STABLE, PT NEEDS HELP TO CHANGE POSITION, RN CALLS HOSPITAL DR TO REPORT PT'S HGB 6.6, NEW ORDER RECEIVED, TYPE AND SCREEN BLOOD AND TRANSFUSION 1 UNIT RBC , PT HAS SIGNED CONSENT FOR BLOOD TRANSFUSION. RN HAS CALLED BLOOD BANK , BLOOD MAY READY IN NEXT SHIFT, RN WILL REPORT TO NEXT SHIFT .
[2021-04-17 19:29] VITALS: BP 111/55
[2021-04-17 20:47] VITALS: BP 106/67; BP 111/68
--- NOTE | 2021-04-18 03:01 | NUR ---
PT CARE ASSUMED WITH PT IN BED SLEEPING.PT IS A/O X4.PT IS ON ROOM AIR.PT HAD A UNIT OF BLLOD TRANSFUSION WITH NO ISSUES.PT IS ACCUCHECK ACHS.IV ACCESS LT UA PICC SINGLE LUMEN SL.WILL CONTINUE TO MONITOR PER POC
[2021-04-18 04:57] VITALS: BP 102/65
[2021-04-18 06:59] LABS: ABSOLUTE NEUTROPHILS 2.4 thou/uL (1.4-8.2); BASOPHILS 0.5 % (0.0-2.0); EOSINOPHILS 2.1 % (0.0-3.0); HEMATOCRIT 23.5 % (37.0-47.0); HEMOGLOBIN 7.8 gm/dL (12.0-15.0); LYMPHOCYTES 28.3 % (24.0-44.0); MCH 31.8 pg (26.0-34.0); MCHC 33.2 g/dL (28.0-37.0); MCV 95.8 fL (80.0-100.0); MONOCYTES 15.6 % (1.0-8.0); PLATELET COUNT 163 thou/uL (150-400); POLYS 53.5 % (36.0-66.0); RBC 2.45 mil/uL (4.20-5.00); RDW 17.8 % (10.5-14.5); WBC 4.5 thou/uL (4.0-11.0)
[2021-04-18 07:08] LABS: CALCIUM 7.6 mg/dL (8.5-10.1); CREATININE 1.1 mg/dL (0.6-1.0); POTASSIUM 4.9 mmol/L (3.5-5.1)
--- NOTE | 2021-04-18 11:03 | HC ---
[facility] [place] [address] CONSULTATION Name: MARCO FOFANA Room #: 457-P ADM IN M.R.#: [id number] Admission: 04/12/21 Attend Phys: Harish Stewart MD Discharge: Date of : 60 Report #: [id number] THIS REPORT FOR: cc: Ramón Almeida MD, Srinath MD Althoff,Bo Taylor MD ~ DATE OF SERVICE: 04/13/2021 CHIEF COMPLAINT: Back, sacral and ischial pressure ulcerations. HISTORY OF PRESENT ILLNESS: This is a 60-year-old female patient with a history of multiple pressure ulcers and prior osteomyelitis. She is admitted to the hospital due to a low hemoglobin. She normally resides in a nursing care facility. I have been asked to see her with regard to wound care. She has some pain, especially with movement in bed and some related to her ulcerations. PAST MEDICAL HISTORY: Positive for bilateral below-knee amputations, diabetes, prior gastric bypass, depression, PTSD, bipolar disorder, anxiety, peripheral neuropathy, thyroid cancer, fibromyalgia and chronic atrial fibrillation. MEDICATIONS: Include hydrocodone, insulin, polyethylene glycol, Percocet, levothyroxine, miconazole, aztreonam, cholecalciferol, atorvastatin, Latuda, melatonin, Lyrica, cyanocobalamin, Eliquis. SOCIAL HISTORY: The patient currently is in nursing care facility. No current alcohol or tobacco use. FAMILY HISTORY: Noncontributory. REVIEW OF SYSTEMS: CONSTITUTIONAL: The patient denies fever, chills or weight loss. NEUROLOGICAL: The patient denies focal weakness, numbness or tingling. EYES: The patient denies any visual changes, redness or drainage. ENT: The patient denies earache, nasal drainage or sore throat. CARDIOVASCULAR: The patient denies chest pain, palpitations or diaphoresis. PULMONARY: Denies cough or shortness of breath. GASTROINTESTINAL: Denies nausea or abdominal pain. ORTHOPEDIC: The patient is aware of the ulcerations. She has had bilateral below-knee amputations. Others systems in a 14-point review of systems are negative. PHYSICAL EXAMINATION: VITAL SIGNS: At this time are temperature 36.9, pulse 91, respiratory rate 16, blood pressure 96/58. GENERAL: This is a chronically ill-appearing female patient who appears to be in [id number] discomfort. [address] [address] CONSULTATION Name: MARCO FOFANA Room #: 457-P [facility] IN M.R.#: [id number] Admission: 04/12/21 Attend Phys: Harish Stewart MD Discharge: Date of : 60 Report #: [id number] HEENT: Head is normocephalic. Nose and throat are clear. NECK: Supple. LUNGS: Diminished. HEART: Irregular without murmur. ABDOMEN: Soft. Bowel sounds present. BACK: Examination of the back demonstrates a lumbar region pressure ulceration that is healthy and clean and granulating. She also has a sacral pressure ulcer, which is mostly granulating with some areas of slough and fibrin attached. Bilateral ischial ulcers are infected and covered with eschar and foul smelling yellow fibrinous material, depth is indeterminate. NEUROLOGIC: The patient is alert and oriented. LABORATORY STUDIES: Include white blood cell count 4.8 with a hemoglobin of 6.4, hematocrit of 19.8. Sodium 138, potassium 3.9, chloride 106, CO2 of 22, BUN 31, creatinine 1.1, glucose 78, albumin is 0.9. CLINICAL IMPRESSION: 1. Stage 4 pressure ulceration to the mid back and sacrum. 2. Unstageable pressure ulcerations to bilateral ischial tuberosities. 3. Wound infection to bilateral ischial tuberosities. 4. Type 2 diabetes mellitus. 5. Acute kidney injury. 6. Hypertension. 7. Chronic pain. 8. Severe protein calorie malnutrition. 9. History of bilateral below-knee amputations. 10. History of prior gastric bypass with possible malabsorption. RECOMMENDATIONS: At this point in time, we will recommend a Dakin's moist gauze dressing to all of the pressure areas. The ischial ulcers will certainly need debridement likely so will sacral ulcer. We will consult Dr. Martines who had seen her in the past to do so. She clearly will need nutritional support. It is unclear based on her previous gastric bypass whether she would be a feeding tube candidate. She has declined this in the past as well. I recommend low air loss mattress with q. 2 hours turning and positioning. I appreciate being asked to see her in consultation. <ELECTRONICALLY SIGNED> By: Bo Alcala MD 04/18/21 [id number] [id number] Bo Alcala MD /nt
--- NOTE | 2021-04-18 12:38 | NUR ---
CARE TEAM INDICATED THAT PT MAY BE MEDICALLY STABLE TO DC BACK TO [facility] TOMORROW Sunday04/19/21. CM FAXED CLINICAL UPDATE AND NOTIFIED LIAISON. CM FOLLOWING REGARDING DC PLANNING.
--- NOTE | 2021-04-18 18:06 | PATH ---
[facility] [address] [place] [address] PATHOLOGY RPT PROCEDURE Name: MARCO ANTOINE Room #: 457-P ADM IN M.R.#: [id number] Admission: 04/12/21 Date of : 60 Discharge: Report #: [id number] Path Case #: [id number] [facility] Accession Number: [id number] . 01 Material submitted: . PART A: back - BACK TISSUE PART B: hip - RIGHT ISCHIAL TUBEROSITY TISSUE. Modifiers: right PART C: hip - LEFT ISCHIAL TUBEROSITY TISSUE. Modifiers: left . 01 Clinical history: . INCISION AND DRAINAGE SACRAL WOUND BILATEARL ISCHIAL TUBEROSITY WOUNDS . 02 Diagnosis: A. Back tissue: - Benign skin with nonspecific ulceration, chronic inflammation and fibrosis. . B. Right ischial tuberosity tissue: - Benign skin with nonspecific ulceration, necrosis, chronic and acute inflammation and fibrosis and scattered calcification. . C. Left ischial tuberosity tissue: - Benign skin with nonspecific ulceration, necrosis, acute and chronic inflammation and fibrosis. . (FLORENCE:yovani; 04/18/2021) MBR 04/18/2021 1630 Local . 02 Electronically signed: . Aroldo Aviles MD, Pathologist NPI- [id number] . 01 Gross description: . A. The specimen is received in formalin, labeled "Marco Antoine, back tissue". Received is an excision of pale israel skin with attached underlying soft tissue measuring 4.4 x 2.7 x 1.5 cm in greatest dimensions. Sectioning reveals pale israel to yellow-israel cut surfaces with no grossly distinct nodules or lesions. The specimen is submitted representatively in cassette A1. . B. The specimen is received in formalin, labeled "Marco Antoine, right ischial tuberosity tissue". Received is an irregular segment of pale israel to necrotic-appearing skin with attached underlying soft tissue measuring 1.5 x 6.1 x 3.5 cm in greatest dimensions. Sectioning reveals yellow-israel to rey-green cut surfaces. The specimen is submitted representatively in cassette B1. [address] [address] PATHOLOGY RPT PROCEDURE Name: ANTOINEMARCO Room #: 457-P [facility] IN M.R.#: [id number] Admission: 04/12/21 Date of : 60 Discharge: Report #: [id number] Path Case #: [id number] . C. The specimen is received in formalin, labeled "Marco Antoine, left ischial tuberosity tissue". Received is an irregular excision of pale israel to necrotic-appearing skin with attached underlying soft tissue measuring 6.6 x 5.4 x 2.5 cm in greatest dimensions. Sectioning reveals yellow-israel to rey-israel cut surfaces with no grossly distinct nodules or lesions. The specimen is submitted representatively in cassette C1. (CAA; 04/15/2021) QA/[facility] 04/18/2021 1628 Local . 02 Pathologist provided ICD-10: L08.9, L98.499, I96, L90.5 . 02 CPT . 738410, 260155, 480597 Specimen Comment: A courtesy copy of this report has been sent to [phone], [phone] Specimen Comment: [id number], Specimen Comment: Report sent to , DR ROTHMAN / DR Isael JARVIS Performed at: [address], [place], [place] [address] MD Deonte Cardona MD Phone: [phone] Performed at: 02 [facility] [address], [place], [place] [id number] MD Aroldo Aviles MD Phone: [phone]
[2021-04-18 20:34] VITALS: BP 122/75
[2021-04-19 04:15] VITALS: BP 111/63
--- NOTE | 2021-04-19 04:34 | NUR ---
PT CARE ASSUMED WITH PT IN BED WATCHING TV.PT IS A/O X4.PT IS ON BEDREST.ACCUCHECK ACHS.PAIN MANAGED WITH PERCOCET.PT REFUSING Q2 REPOSITIONS.PT ON ROOM AIR.PICC SINGLE LUMEN ON BENOIT SL.WILL CONTINUE TO MONITOR PER POC
[2021-04-19 07:38] VITALS: BP 122/63
[2021-04-19 08:00] LABS: HEMATOCRIT 22.2 % (37.0-47.0); HEMOGLOBIN 7.4 gm/dL (12.0-15.0); MCH 31.8 pg (26.0-34.0); MCHC 33.2 g/dL (28.0-37.0); MCV 95.9 fL (80.0-100.0); RBC 2.32 mil/uL (4.20-5.00); RDW 17.6 % (10.5-14.5); WBC 3.4 thou/uL (4.0-11.0)
[2021-04-19 08:20] LABS: CALCIUM 7.8 mg/dL (8.5-10.1); CREATININE 1.3 mg/dL (0.6-1.0)
[2021-04-19 11:16] VITALS: BP 101/56
[2021-04-19 12:05] LABS: URINE BILIRUBIN NEGATIVE (Negative); URINE BLOOD 3+ (Negative); URINE CLARITY CLEAR; URINE GLUCOSE-RANDOM* NEGATIVE (Negative); URINE KETONES NEGATIVE (Negative); URINE NITRITE-REFLEX NEGATIVE (Negative); URINE PROTEIN (DIPSTICK) 1+ (Negative); URINE UROBILINOGEN 0.2 E.U./dl (0.2-1.0)
[2021-04-19 12:19] LABS: URINE COLOR LT PINK; URINE LEUKOCYTES-REFLEX 2+ (Negative)
[2021-04-19 12:29] LABS: CASTS None Seen /LPF (None Seen); SQUAMOUS 0-3 Few /LPF (0-3)
[2021-04-19 12:31] LABS: CRYSTALS None Seen /LPF (None Seen); URINE RBC >20 Many /HPF (NONE SEEN)
[2021-04-19 12:32] LABS: YEAST-REFLEX Present (None Seen)
[2021-04-19] MEDS ORDERED: AZACTAM 1 GM VIA1 G1 IV (13:01)
--- NOTE | 2021-04-19 14:36 | NUR ---
HAD ANTICIAPTED DC BACK TO [facility] ON IV ABX THIS DAY BUT PT HAD CRITICAL VANC LEVEL. CM SPOKE WITH VICENTA LOPEZ AND THEY ARE AWARE AND ABLE TO ACCEPT PT BACK ONCE MEDICALLY STABLE. CARE TEAM INDICATED NOT DC READY. CM NOTIFIED FACILITY. CM FOLLOWING REGARDING DC PLANNING.
--- NOTE | 2021-04-19 15:47 | NUR ---
Pt care assumed at bedside, Pt found in low leal position, RA, A/O x 4, appears comfortable, assessment done, meds given per order, ostomy care, urinary bag emptied and recorded, VSS, gluc WNL no coverage needed, fair appetite pain controlled, wound care provided, repositioned PRN, all safety precaution maintained, labs reviewed, Vancomycin held for trough level above the normal range, physician/pharmacy contacted , dose to be reinitiated tomorrow. Picc line patent, dressing D,C,I. cont POC and monitor for change.
[2021-04-19 16:35] VITALS: BP 115/68
[2021-04-19 19:02] VITALS: BP 114/63
[2021-04-20 00:38] VITALS: BP 105/60
[2021-04-20 04:42] VITALS: BP 116/62
--- NOTE | 2021-04-20 04:56 | NUR ---
Pt. rested quietly at intervals during the night when checked on during frequent rounds. Po pain meds given (see emar). She refused to be turned and repositioned. Bed alarm is on.
[2021-04-20 07:00] VITALS: BP 112/62
[2021-04-20 12:00] VITALS: BP 118/64
[2021-04-20 13:42] LABS: HEMATOCRIT 23.1 % (37.0-47.0); HEMOGLOBIN 7.7 gm/dL (12.0-15.0); MCH 32.3 pg (26.0-34.0); MCHC 33.2 g/dL (28.0-37.0); MCV 97.3 fL (80.0-100.0); RBC 2.38 mil/uL (4.20-5.00); RDW 17.8 % (10.5-14.5)
[2021-04-20 13:59] LABS: CALCIUM 7.8 mg/dL (8.5-10.1); CREATININE 1.4 mg/dL (0.6-1.0); MAGNESIUM 1.7 mg/dL (1.8-2.4); POTASSIUM 5.2 mmol/L (3.5-5.1)
--- NOTE | 2021-04-20 15:23 | NUR ---
ASSUMED CARE AT SHIFT CHANGE. PT A/O X 4, RESTING MOST OF THE DAY WITH NO DISTRESS NOTED. PT DOES NOT LIKE TO BE TURNED Q2H DUE TO PAIN. . WILL REQUEST OR APPROVE WHEN SHE WANTS TO BE TURNED. PT HAD GOOD APPETITE TODAY, EATING 80% OF BREAKFAST, 100% OF LUNCH SO FAR. PRN PAIN MEDS HELP SOME BUT PT STATES SHE IS STILL IN PAIN FROM WOUNDS. LABS NOTED. ASSESSMENTS PER CHART. WILL CONT TO MONITOR AND FOLLOW POC.
--- NOTE | 2021-04-20 15:49 | NUR ---
HOSPITALIST WANTED MORE LABS DONE AND TO SPEAK WITH GI FURTHER ABOUT CASE. CM FOLLOWING REGARDING DC PLANNING.
[2021-04-20 17:00] VITALS: BP 124/69
[2021-04-20 19:26] VITALS: BP 123/75
[2021-04-21 00:27] VITALS: BP 136/87
--- NOTE | 2021-04-21 02:44 | NUR ---
PT IS A/O X4 AND IS ON BEDREST. ROOM AIR. VSS. AFEBRILE. MEDICATIONS GIVEN PER MAR. PT C/O PAIN. PRN PAIN MEDICATION GIVEN DIRECTED. FALL PRECAUTIONS IN PLACE, CALL LIGHT IS WITHIN REACH. WILL CONTINUE TO MONITOR.
[2021-04-21 05:07] VITALS: BP 121/65
[2021-04-21 05:19] LABS: HEMATOCRIT 21.1 % (37.0-47.0); MCH 32.1 pg (26.0-34.0); MCHC 33.2 g/dL (28.0-37.0); MCV 96.8 fL (80.0-100.0); RBC 2.18 mil/uL (4.20-5.00); RDW 17.7 % (10.5-14.5); WBC 3.5 thou/uL (4.0-11.0)
[2021-04-21 05:44] LABS: CALCIUM 7.5 mg/dL (8.5-10.1); CREATININE 1.1 mg/dL (0.6-1.0); MAGNESIUM 1.7 mg/dL (1.8-2.4); POTASSIUM 5.4 mmol/L (3.5-5.1)
[2021-04-21 08:17] VITALS: BP 113/59
--- NOTE | 2021-04-21 15:47 | NUR ---
HOSPITALIST CONSULTED PALLIATIVE CARE COUNTY MANAGER. AWAITING CONSULT. PT TO RETURN TO [facility] ONCE MEDICALLY STABLE. CM FOLLOWING REGARDING DC PLANNING.
--- NOTE | 2021-04-21 19:57 | NUR ---
Assumed pt care vs stable. Refused Q2 turns, in chronic pain, managed with medications as per emar. POC followed, wound care not done during the day, endorsed to the speech pathologist. FC in place draining urine, colostomy in place and patent with no signs of infections. Enldorsed to the night nurse.
[2021-04-21 19:58] VITALS: BP 115/72
[2021-04-22 00:19] VITALS: BP 112/71
[2021-04-22 04:45] VITALS: BP 115/73
[2021-04-22 07:41] VITALS: BP 112/71
--- NOTE | 2021-04-22 07:42 | NUR ---
Pt. rested quietly at intervals during the night when checked on during frequent rounds. She c/o generalized pain and po pain meds given (see emar) with some relief noted. Refuses to be turned and repositioned. Expressed to this nurse that she wanted iv fentanyl everytime for turns. Bed alarm is on.
[2021-04-22 11:37] VITALS: BP 106/63
[2021-04-22 11:43] LABS: HEMOGLOBIN 6.8 gm/dL (12.0-15.0); MCH 31.4 pg (26.0-34.0)
[2021-04-22 11:44] LABS: HEMATOCRIT 20.7 % (37.0-47.0); MCHC 32.7 g/dL (28.0-37.0); RBC 2.15 mil/uL (4.20-5.00); RDW 17.6 % (10.5-14.5)
[2021-04-22 12:14] LABS: CALCIUM 7.6 mg/dL (8.5-10.1); MAGNESIUM 1.7 mg/dL (1.8-2.4); POTASSIUM 5.4 mmol/L (3.5-5.1)
--- NOTE | 2021-04-22 16:19 | NUR ---
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 CARE TEAM INDICATING THAT ISN'T GOING TO MEDICALLY STABLE TO DC OVER THE WEEKEND. CM FOLLOWING REGARDING EVENTUAL RETURN TO [facility].
[2021-04-22 16:34] VITALS: BP 110/70
[2021-04-22 17:34] VITALS: BP 117/68; BP 118/65; BP 120/78
--- NOTE | 2021-04-22 18:12 | NUR ---
TRANSFUSE 1 UNIT PRBC STARTED LAST THIS SHIFT. CHANGED WOUND DRESSING ON PT'S SACRAL AREA AND WILL HAVE HORTICULTURAL MANAGER CHANGE DRESSINGS TO PT'S BILAT AKA STUMPS. PT TAKING IN GOOD PO. WILL CONTINUE TO ASSESS.
[2021-04-23 00:04] VITALS: BP 131/85
--- NOTE | 2021-04-23 04:35 | NUR ---
ASSUMED CARE OF PT AT 1930. REPORT RECIEVED. IVAN ASSESSMENT COMPLETE. BLOOD TRANSFUSION COMPLETED. POST TRANSFUSION VITAL SIGNS DONE, VSS. ALL WOUND CARE DRESSINGS CDI C NO APPARENT DRAINAGE. COLOSTOMY CDI, AND HAS BEEN CONTINUALLY BURPED. PAIN MEDICATION GIVEN ACCORDINGLY. MEDS GIVEN PER AUG. MONTAGUE CARE DONE. ALL NEEDS MET, HOURLY ROUNDING CONTINUING. CALL LIGHT WITH IN REACH
[2021-04-23 04:38] LABS: CALCIUM 7.4 mg/dL (8.5-10.1); CREATININE 0.9 mg/dL (0.6-1.0); MAGNESIUM 1.6 mg/dL (1.8-2.4)
[2021-04-23 04:41] LABS: HEMATOCRIT 23.3 % (37.0-47.0); HEMOGLOBIN 7.7 gm/dL (12.0-15.0); MCH 31.1 pg (26.0-34.0); MCHC 33.1 g/dL (28.0-37.0); RBC 2.47 mil/uL (4.20-5.00); WBC 4.4 thou/uL (4.0-11.0)
[2021-04-23 04:52] VITALS: BP 130/79
[2021-04-23 07:38] VITALS: BP 127/77
[2021-04-23 12:05] VITALS: BP 130/70
[2021-04-23 16:56] VITALS: BP 118/68
--- NOTE | 2021-04-23 18:30 | NUR ---
PT ASSESSED AT START OF SHIFT. CHRONIC PAIN REQUIRING REGULAR MEDS W/ PARTIAL RELIEF. IV MG GIVEN PER ORDERS. EATING AND DRINKING WELL. DRESSINGS DRY AND INTACT. COLOSTOMY EXPLODED TWICE W/ LARGE AMT OF GAS BUT NO STOOL SINCE THIS AM. BLOOD SUGARS IN GOOD CONTROL.
[2021-04-24] VITALS: BP 121/78
[2021-04-24 04:00] VITALS: BP 125/80
[2021-04-24 08:04] VITALS: BP 123/76
[2021-04-24 08:07] LABS: HEMATOCRIT 23.7 % (37.0-47.0); HEMOGLOBIN 7.8 gm/dL (12.0-15.0); MCHC 32.7 g/dL (28.0-37.0); MCV 94.6 fL (80.0-100.0); RBC 2.51 mil/uL (4.20-5.00); WBC 3.6 thou/uL (4.0-11.0)
[2021-04-24 08:15] LABS: CALCIUM 7.9 mg/dL (8.5-10.1); CREATININE 0.8 mg/dL (0.6-1.0); MAGNESIUM 1.9 mg/dL (1.8-2.4); POTASSIUM 4.8 mmol/L (3.5-5.1)
--- NOTE | 2021-04-24 09:23 | NUR ---
ASSUMED CARE AT 0000 PT CONTINUES TO BE ON PAIN MANAGEMENT, LAYING COMFORTABLY IN BED, COMPLIANT WITH TX, NO ADVERSE REACTION NOTED, WILL CONTINUE TO MONITOR.
[2021-04-24 12:06] VITALS: BP 117/69
[2021-04-24 15:50] VITALS: BP 124/64
--- NOTE | 2021-04-24 17:26 | NUR ---
PT ASSESSED AT START OF SHIFT. NO C/O NAUSEA. EATING AND DRINKING WELL. HGB STABLE. BLOOD SUGARS STABLE. PICC LINE DECLOTTED PER IV TEAM. POSSIBLE DC TO FACILITY TOMORROW.
[2021-04-24 19:18] VITALS: BP 138/66
[2021-04-25] VITALS (7 sets, daily range): BP systolic 100–123; BP diastolic 46–74
--- NOTE | 2021-04-25 03:46 | NUR ---
Assumed pt care at 1900. A/OX4,VSS/ C/o pain allover with movement,medicated prior to dsg change at HS by day RN and effective. Colostomy/arita patent with adequate output. PICC line on LUE patent. NSR on telemetry. Fall precautions in place,calls approp for help.Resting quietly w/o distress will continue to monitor pt.
[2021-04-25 10:33] LABS: HEMATOCRIT 24.1 % (37.0-47.0); HEMOGLOBIN 7.9 gm/dL (12.0-15.0); MCH 31.2 pg (26.0-34.0); MCHC 32.7 g/dL (28.0-37.0); MCV 95.4 fL (80.0-100.0); RBC 2.52 mil/uL (4.20-5.00); RDW 19.5 % (10.5-14.5); WBC 3.8 thou/uL (4.0-11.0)
[2021-04-25 10:40] LABS: CALCIUM 7.9 mg/dL (8.5-10.1); CREATININE 0.9 mg/dL (0.6-1.0); MAGNESIUM 1.9 mg/dL (1.8-2.4); POTASSIUM 4.8 mmol/L (3.5-5.1)
--- NOTE | 2021-04-25 15:17 | NUR ---
WAITING FOR GI DOCTOR TO ROUND TO DETERMINE IF PATIENT IS OKAY FOR DISCHARGE BACK TO FACILITY. PATIENT DENIES ANY NEEDS OR CONCERNS TODAY ASIDE FROM BEING ANXIOUS TO LEAVE. PRN PAIN MEDICATION GIVEN PER MAR. AM LABS SENT AND NOTED. HGB STABLE. ID ROUNDED, WILL CHANGE IV ABX TO PO UPON DISCHARGE.
--- NOTE | 2021-04-25 16:34 | NUR ---
CARE TEAM INDICATED THAT PT WILL LIKELY BE MEDICALLY STABLE TO DC TOMORROW BACK TO [facility]. CM CALLED OVER TO ROLLA AND LEFT VM TO VICENTA CHUN TEST TO BE DONE. NO OTHER CM INTERVENTION INDICATED. CM TO FOLLOW UP AND FACILITATE DC INDICATED.
[2021-04-26 03:53] VITALS: BP 110/71
--- NOTE | 2021-04-26 03:59 | NUR ---
ASSUMED PT CARE THIS PM. PT IS ALERT AND OREINTED X4. PT REFUSED DRSG CHANGE AND Q2HR TURN. PT HAS SINGLE LUMEN PICC TO THE BENOIT. PT DID NOT VERBALIZE ANY CONCERNS. MEDS WERE GIVEN PER EMAR ORDERS. PT IS ON RA. FALL PRECAUTIONS IN PLACE. WILL CONTINUE TO MONITOR.
[2021-04-26 08:34] VITALS: BP 118/76
[2021-04-26] MEDS ORDERED: FOLIC ACID1 MG PO (12:15)
[2021-04-26] MEDS ORDERED: VANCOMYCIN500 MG/VIA IV (12:15)
[2021-04-26] MEDS ORDERED: SYNTHROID137 MC1 PO (12:15)
[2021-04-26] MEDS ORDERED: IRON325 PO (12:15)
--- NOTE | 2021-04-26 13:41 | NUR ---
CARE TEAM INDICATED THAT PT IS MEDICALLY STABLE TO DC BACK TO [facility] THIS DAY. CHART COPY MADE. ORDERS FAXED. NURSE GIVEN NUMBER FOR REPORT. CM FINALLY SPOKE WITH JESSICA AND SHE INDICATED THAT [facility] WAS ARRNGED FOR 1330. PT IS AWARE AND AGREEABLE AND WILL NOTIFY HER MOTHER. NO OTHER CM INTERVENTION INDICATED. CASE CLOSED.
--- NOTE | 2021-04-26 19:59 | NUR ---
PT ALERT AND ORIENTED TIMES FOUR. VSS, [place] AND COLOSTOMY TO DD. PT C/O PAIN PRN PAIN MEDICATIONS CONTROLLING PAIN WELL. PT TOLERATES MEDS AND MEALS. PT DISCHARGE TODAY. PT WAS PICKED UP A 1330 AND TAKEN BACK TO [facility].
== END 2021-04-26 14:28 | DRG 802 ==
LOC: ER 11:49 → EROBS 15:18 → 4W 15:18
PROVIDERS: Anesthesiology; Emergency Medicine; Hospitalist; Internal Medicine; Nurse Practitioner; Specialist; ADMIT Hospitalist; ATTEND Hospitalist
PROC: 30233N1 Transfusion of Nonautologous Red Blood Cells into Peripheral Vein, Percutaneous Approach (ICD-10-PCS; principal; 2021-04-12)
PROC: 0QB10ZZ Excision of Sacrum, Open Approach (ICD-10-PCS; 2021-04-14)
PROC: 0JB70ZZ Excision of Back Subcutaneous Tissue and Fascia, Open Approach (ICD-10-PCS; 2021-04-14)
PROC: 0QB30ZZ Excision of Left Pelvic Bone, Open Approach (ICD-10-PCS; 2021-04-14)
PROC: 0QB20ZZ Excision of Right Pelvic Bone, Open Approach (ICD-10-PCS; 2021-04-14)
PROC: 05HY33Z Insertion of Infusion Device into Upper Vein, Percutaneous Approach (ICD-10-PCS; 2021-04-15)
DX: D50.9 Iron deficiency anemia, unspecified (principal); L89.154 Pressure ulcer of sacral region, stage 4; E43 Unspecified severe protein-calorie malnutrition; L89.324 Pressure ulcer of left buttock, stage 4; L89.314 Pressure ulcer of right buttock, stage 4; N17.9 Acute kidney failure, unspecified; I48.20 Chronic atrial fibrillation, unspecified; M86.8X8 Other osteomyelitis, other site; K43.5 Parastomal hernia without obstruction or gangrene; L89.109 Pressure ulcer of unspecified part of back, unspecified stage; G89.4 Chronic pain syndrome; E03.9 Hypothyroidism, unspecified; M17.0 Bilateral primary osteoarthritis of knee; M54.50 Low back pain, unspecified; F31.9 Bipolar disorder, unspecified; F41.9 Anxiety disorder, unspecified; E11.42 Type 2 diabetes mellitus with diabetic polyneuropathy; E11.69 Type 2 diabetes mellitus with other specified complication; M79.7 Fibromyalgia; F60.3 Borderline personality disorder; R53.81 Other malaise; S31.000A Unspecified open wound of lower back and pelvis without penetration into retroperitoneum, initial encounter; E87.5 Hyperkalemia; Z20.822 Contact with and (suspected) exposure to COVID-19; Z86.16 Personal history of COVID-19; Z89.512 Acquired absence of left leg below knee; Z89.511 Acquired absence of right leg below knee; Z88.0 Allergy status to penicillin; Z88.8 Allergy status to other drugs, medicaments and biological substances; Z91.041 Radiographic dye allergy status; Z87.891 Personal history of nicotine dependence; Z68.37 Body mass index [BMI] 37.0-37.9, adult; Z82.49 Family history of ischemic heart disease and other diseases of the circulatory system; Z93.3 Colostomy status; Z23 Encounter for immunization
CPT/HCPCS: 10045; 50010; 50101; 50386; 50409; 52287; 57119; 57120; 62110; 62900; 70005

== ENCOUNTER 2021-04-27 10:33 | Inpatient (IN) | payer OTHER ==
[~2021-04-27] VITALS: Ht 170.2 cm; Wt 115.4 kg
--- NOTE | ~2021-04-27 | EMS ---
[facility] [address] [place] [address] EMS Patient Care Report Name: MARCO FOFANA Room #: REG TAMEKA Campbell#: [id number] Admission: 04/27/21 Attend Phys: Discharge: Date of : 60 Report #: [id number] THIS REPORT FOR: //name// Report Transmitted: 04/27/2021 10:49 EMS Care Summary [place], [place]/[facility] Incident [id number] @ 04/27/2021 10:06 Incident Location [id number] [place] [address] 312 Patient MARCO FOFANA Female, 60 Years 1960 Patient Address [id number] [place] [address] [address] [place] [address] Patient History Amputee,Pneumonia,Depression,Sepsis,Pressure Ulcer,Type 2 Diabetes,Cellulitis,Novel Coronavirus (COVID-19), Patient Allergies Food Allergy,Penicillin allergy,Keflex,Iodine, Patient Medications Magnesium Oxide, Oxycodone/ASA, Omeprazole, Lasix, Potassium, Zyrtec, Polyethlene Glycol, Other, Duloxetine, Atorvastatin, Vitamin D, Doxycycline, Metformin, Levothyroxine, Melatonin, Chief Complaint vaginal bleeding Disposition Transported No Lights/Carbon Dispatch Reason Hemorrhage/Laceration Transported To [facility] [address] [place] [address] EMS Patient Care Report Name: MARCO FOFANA Room #: REG Shannan#: [id number] Admission: 04/27/21 Attend Phys: Discharge: Date of : 60 Report #: [id number] pt found a&o in bed. she states she awoke this AM and noticed blood on her bed sheets. pt states she is bleeding from her vagina. pt was just released from [facility] yesterday after a 2 wk stay for tx of anemia/blood transfusions. pt req transport back to [facility]. pt to cot, transport w/o incident. Initial Vitals @10:21P: 96,R: 18,BP: 123/83,Pain: 8/10,GCS: 15,SpO2: 96,Revised Trauma: 12, Assessments @10:13MENTAL:No Abnormalities,SKIN:No Abnormalities,HEENT:Head/Face: No Abnormalities,LUNG SOUNDS:ABDOMEN:PELVIS//GI:EXTREMITIES:PULSE:NEURO:No Abnormalities, Impression Hemorrhage Procedures @10:13 ALS Assessment Response: Unchanged @10:14 Stretcher Response: Unchanged Timeline 10:05,Call Received 10:05,Dispatch Notified 10:06,Dispatched 10:07,En Route 10:10,On Scene 10:13,At Patient 10:13,ALS Assessment,Response: Unchanged 10:14,Stretcher,Response: Unchanged 10:19,Depart Scene 10:21,BP: 123/83 M,PULSE: 96,RR: 18 R,SPO2: 96 Ox,ETCO2: ,BG: ,PAIN: 8,GCS: 15, 10:29,At Destination 10:39,Call Closed Disclaimer v1.1 Copyright 2020 [employer] This EMS Care Summary contains data elements from the applicable legal record (which may be displayed differently). It is designed to provide pertinent information for the following purposes: continuity of care, clinical quality, and state data reporting. The complete legal record is available to ED staff and administrators of the receiving hospital in [employer]'s Patient Tracker. All data is provided "as is."
[~2021-04-27 10:33] MED LIST changes: +FOLIC ACID1 MG PO; +IRON325 PO; +SYNTHROID137 MC1 PO; +VANCOMYCIN500 MG/VIA IV
[2021-04-27 10:34] VITALS: BP 120/72
[2021-04-27 11:52] LABS: HEMOGLOBIN 7.6 gm/dL (12.0-15.0); MCH 31.5 pg (26.0-34.0); MCHC 32.9 g/dL (28.0-37.0); MCV 95.9 fL (80.0-100.0); PLATELET COUNT 236 thou/uL (150-400); RDW 19.3 % (10.5-14.5); WBC 4.5 thou/uL (4.0-11.0)
[2021-04-27 12:09] LABS: ANION GAP 2 mmol/L (7-16); BUN 34 mg/dL (7-18); CALCIUM 7.8 mg/dL (8.5-10.1); CHLORIDE 110 mmol/L (98-107); CO2 26 mmol/L (21-32); CREATININE 0.7 mg/dL (0.6-1.0); GLUCOSE 100 mg/dL (74-106); POTASSIUM 4.5 mmol/L (3.5-5.1); SODIUM 138 mmol/L (136-145)
[2021-04-27 12:10] LABS: INR 1.03; PROTIME 11.2 Seconds (10.5-12.1)
[2021-04-27 12:18] LABS: ALBUMIN < 0.6 g/dL (3.4-5.0); DIRECT BILIRUBIN < 0.1 mg/dL (<0.1-0.2); LIPASE 141 U/L (73-393); SGOT 59 U/L (15-37); SGPT 92 U/L (14-59); TOTAL BILIRUBIN 0.1 mg/dL (0.2-1.0); TOTAL PROTEIN 4.8 g/dL (6.4-8.2)
[2021-04-27 13:32] LABS: ABSOLUTE NEUTROPHILS 2.8 thou/uL (1.4-8.2); ATYPICAL LYMPHS 1 %; METAMYELOCYTES 1 %; MYELOCYTES 2 %
[2021-04-27 13:34] LABS: ANISOCYTOSIS 2+
[2021-04-27 17:53] LABS: HEMATOCRIT 22.6 % (37.0-47.0); HEMOGLOBIN 7.5 gm/dL (12.0-15.0); MCH 31.6 pg (26.0-34.0); MCV 95.7 fL (80.0-100.0); RBC 2.36 mil/uL (4.20-5.00); RDW 19.3 % (10.5-14.5); WBC 7.6 thou/uL (4.0-11.0)
[2021-04-27 19:07] VITALS: BP 123/83
[2021-04-27 19:25] VITALS: BP 138/82
[2021-04-27 19:40] VITALS: BP 107/69
[2021-04-27 19:45] VITALS: BP 107/69
[2021-04-27 23:55] VITALS: BP 122/77
--- NOTE | 2021-04-28 00:37 | NUR ---
PT ALERT AND ORIENTED X4. ADMITTED TO FLOOR FOR VAGINAL BLEEDING. HG 7.5. VSS LOW GRADE TEMP. SATS WNL ON RA. UA SENT TO LAB. PICTURES OF WOUNDS TAKEN . WOUNDS DRESSED WET TO DRY UNTIL W/C CAN SEE PT AND WRITE ORDERS. PT C/O "OVARIAN SITE" ABD PAIN, RIGHT HIP PAIN AND SACAL PAIN. MEDICATED WITH FENTANYL 25 MCG. PT IS SLEEPING PRESENTLY. NO S/S PAIN. MICONAZOLE OINTMENT APPLIED ORDERED. BED DOWN. CALL LIGHT IN REACH. BED ALARM IS ON. NO VAGINAL BLEEDING NOED PRESENTLY. MODERATE AMTS SANGINOUS DRAINAGE NOTED FROM WOUNDS. WILL CONTINUE TO MONITOR PT FOR CHANGES.
[2021-04-28 01:15] LABS: URINE BILIRUBIN NEGATIVE (Negative); URINE BLOOD 3+ (Negative); URINE CLARITY CLOUDY; URINE COLOR YELLOW; URINE GLUCOSE-RANDOM* NEGATIVE (Negative); URINE KETONES NEGATIVE (Negative); URINE NITRITE-REFLEX NEGATIVE (Negative); URINE PROTEIN (DIPSTICK) 1+ (Negative); URINE SPECIFIC GRAVITY 1.015 (1.005-1.035); URINE UROBILINOGEN 0.2 E.U./dl (0.2-1.0)
[2021-04-28 01:27] LABS: URINE LEUKOCYTES-REFLEX 3+ (Negative)
[2021-04-28 01:31] LABS: CRYSTALS None Seen /LPF (None Seen); HYALINE CASTS 4-10 Moderate /LPF (None Seen); MUCUS 4-6 Moderate strn/LPF (None Seen); SQUAMOUS 4-10 Moderate /LPF (0-3); URINE RBC >20 Many /HPF (NONE SEEN); URINE WBC-REFLEX >25 Many /HPF (0-5); WBC CLUMPS Moderate (None Seen); YEAST-REFLEX Present (None Seen)
[2021-04-28 04:09] VITALS: BP 131/80
--- NOTE | 2021-04-28 05:30 | NUR ---
PT SLEEPY AWAKES EASILY. NO C/O PAIN PRESENTY SINCE FENTANYL WAS GIVEN. FALL PRECAUTINS IN LACE.
--- NOTE | 2021-04-28 05:54 | NUR ---
NOTIFIED ENVIRONMENTAL SCIENCE PROGRAM DIRECTOR OF [facility]. SHE WILL ORDER IV ABX OR TEXT DR SANDOVAL AND JOSE MESSAGE.
[2021-04-28 06:03] LABS: MCH 31.7 pg (26.0-34.0); MCHC 33.2 g/dL (28.0-37.0); MCV 95.5 fL (80.0-100.0); RBC 1.9 mil/uL (4.20-5.00); RDW 19.3 % (10.5-14.5)
[2021-04-28 06:13] LABS: HEMATOCRIT 18.1 % (37.0-47.0)
[2021-04-28 06:59] LABS: CALCIUM 7.4 mg/dL (8.5-10.1); CREATININE 0.7 mg/dL (0.6-1.0); MAGNESIUM 1.7 mg/dL (1.8-2.4); POTASSIUM 4.2 mmol/L (3.5-5.1)
[2021-04-28 07:35] VITALS: BP 119/77
--- NOTE | 2021-04-28 08:13 | NUR ---
NOTIFIED COOKING INSTRUCTOR OF CRITICAL HG 6.0 AT 0615. TRANSFUSE 1 UNIT PRBCS ORDERED. LAB JUST CALLED TO SAY BLOOD IS READY. REPORT GIVEN TO DAY SHIFT NS . SHE WILL HANG BLOOD SOON REPORT DONE. STARTED ABX ORDERED AND OXYCODONE GIVEN FOR PAIN.
--- NOTE | 2021-04-28 09:07 | NUR ---
NO SKILLED OT APPROPRIATE FOR THIS PATIENT AT THIS TIME. SEE OT VARIANCE.
[2021-04-28 09:47] VITALS: BP 104/64; BP 115/87
[2021-04-28 11:28] VITALS: BP 114/68
--- NOTE | 2021-04-28 12:43 | NUR ---
Consider folate and T-4 supplmentation r/t altered labs on last admit.
--- NOTE | 2021-04-28 14:02 | NUR ---
INITIAL ASSESSMENT: Received consult for discharge planning. TOMASZ reviewed chart and spoke with nursing and attending physician. Pt was admitted from [facility] due to anemia/vaginal bleeding. RISK ASSESSMENT CONSULTANT consulted. Pt was recently discharged from [facility] on 04/26. Pt with hx of bilateral AKAs. SW met with pt at bedside. Introduced role of SW. Pt is alert/orientated x 4. Pt reports she is a [facility] care resident at [facility]. Pt confirms plan is to return to [facility] when medically stable. TOMASZ faxed clinical info to [facility] admissions liaison for review. TOMASZ is following to assist as needed with discharge planning.
[2021-04-28 14:13] LABS: HEMATOCRIT 21.7 % (37.0-47.0); HEMOGLOBIN 7.1 gm/dL (12.0-15.0)
--- NOTE | 2021-04-28 14:18 | NUR ---
WOUND CONSULT; A WELL KNOW PATIENT TO [facility]. THE PATIENT HAS WOUNDS TO THE STUMPS BILATERALLY WITH STABLE ESCHAR. WOUNDS ALSO TO THE BACK,SACRUM AND BILATERAL ISCHIUM WOUNDS. THE WOUNDS ARE STABLE AT THIS TIME RE; PREVIOUS ADMISSION THE WOUNDS (WERE) VERY FRIABLE. NO BLEEDING TODAY. THE PATIENT IS IN NO VISABLE PAIN ONLY VERY ANXIOUS. THE PATIENT DID NOT WITH ANY S/S OF PAIN DURING THE DRESSING CHANGE. ONLY WHEN A DOCTOR WAS IN THE ROOM. THE PATIENTS BED HAS A LOW AIR LOSS BED PUMP IN USE. RECCOMMENDATIONS; -DAKINS MOIST GAUZE TO THE WOUNDBEDS: BACK,SACRUM,BILATERAL ISCHIUM DAILY/PRN -ABD TO THE BILATERAL STUMPS -ADRIEN LOW AIR LOSS PUMP. RN PRESENT. -
[2021-04-28 15:29] VITALS: BP 114/59
--- NOTE | 2021-04-28 18:39 | NUR ---
PT ALERT AND ORIENTED X 4. PT COMPLAINED OF PAIN ALL DAY, WITH PARTIAL RELIEF WITH MEDICATION. TRANSFUSED 1 UNIT OF BLOOD THIS AM, HGB IMPROVING. PT DENIES NEEDS AT THE MOMENT, WILL CONTINUE TO MONITOR.
[2021-04-28 19:12] VITALS: BP 119/74
--- NOTE | 2021-04-28 22:50 | NUR ---
PT RESTING IN BED. PALE SKIN TONE, OBESE, GENERALIZED EDEMA, COLOSTOMY, MONTAGUE. PT REPORTS BACK PAIN WITH REPOSITIONING AND PRN PROVIDED. PT TALKED WITH DR HARMON ABOUT TOMORROWS PROCEDURE AND SIGNED CONSENT. NPO P MN. PT HAD HS SNACK. PT DECLINED SLIDING SCALE INSULIN THIS EVENING. BED ALARM ON. PT IS BILAT AKA, WOUND DRESSINGS INTACT COCCYX AND BILAT STUMPS.
[2021-04-29 04:07] VITALS: BP 113/73
[2021-04-29 07:22] VITALS: BP 133/76
--- NOTE | 2021-04-29 10:28 | NUR ---
report given to preop. pt to procedure at this time.
--- NOTE | 2021-04-29 13:44 | NUR ---
PT BACK FROM PROCEDURE. A&OX4. RECENT FENTANYL ADMINISTRATION
[2021-04-29 13:50] VITALS: BP 124/72
--- NOTE | 2021-04-29 14:16 | NUR ---
TOMASZ reviewed chart and spoke with nursing and attending physician. Pt off the unit having endometrial bx. Pt is on IV abx. TOMASZ provided update to [facility], admissions liaison at [facility]. Per Nevaeh, they are able to accept pt back over the weekend if pt is ready for discharge. TOMASZ faxed updates to [facility] for review. Staff to contact [facility] to coordinate discharge if pt is ready. TOMASZ is available to assist as needed with discharge planning. [place]-- or [phone]
[2021-04-29 15:37] VITALS: BP 138/80
--- NOTE | 2021-04-29 18:45 | NUR ---
PT HAD CONTINUED PAIN DESPITE PO MEDICATION. STATES IT IS PARTLY DUE TO HER GASTRIC BYPASS. PT IS TOLERATING PO INTAKE, IS ABLE TO ADVANCE DIET FOR NEXT MEAL. SCANT AMOUNT OF RED DISCHARGE FROM UTERINE PROCEDURE. COLOSTOMY WITH FREQUENT OUTPUT.
[2021-04-29 19:30] VITALS: BP 118/68
--- NOTE | 2021-04-30 01:02 | NUR ---
PT SLEEPING IN BED, AROUSED EASILY. PALE SKIN TONE, COOL TO THE TOUCH. OBESE, BLE EDEMA GENERALIZED. MONTAGUE TO DD. MULTIPLE WOUNDS COCCYX, STUMPS. COLOSTOMY INTACT. NO VAGINAL BLEEDING NOTED DURING LEOBARDO CARE. PT TOLERATED SANDWICH THIS EVENING. PT REFUSED SLIDING SCALE INSULIN. BED ALARM ON. PRN FOR PAIN, PT HAS DISCOMFORT WITH REPOSITIONG. BENOIT PICC INTACT.
[2021-04-30 03:30] VITALS: BP 98/62
[2021-04-30 07:24] VITALS: BP 111/60
[2021-04-30 09:11] LABS: HEMATOCRIT 22.7 % (37.0-47.0); HEMOGLOBIN 7.4 gm/dL (12.0-15.0); MCH 31.7 pg (26.0-34.0); MCHC 32.5 g/dL (28.0-37.0); MCV 97.7 fL (80.0-100.0); RBC 2.32 mil/uL (4.20-5.00); RDW 18.5 % (10.5-14.5); WBC 6.6 thou/uL (4.0-11.0)
[2021-04-30 09:45] LABS: CALCIUM 7.6 mg/dL (8.5-10.1); CREATININE 0.9 mg/dL (0.6-1.0); POTASSIUM 4.9 mmol/L (3.5-5.1)
[2021-04-30 10:55] VITALS: BP 110/61
[2021-04-30 15:16] VITALS: BP 127/66
--- NOTE | 2021-04-30 17:55 | NUR ---
WOUND CARE COMPLETED PER ORDER. TRIED TO REPOSITION PT EVERY 2HOURS, REFUSED AT TIMES. MONTAGUE IN PLACE, PATENT AND SECURED. PAIN MED GIVEN PER ORDER. NO VAGINAL BLEEDING NOTED TODAY. FALL PRECAUTIONS IN PLACE. DENIES ANY NEEDS AT MOMENT.
[2021-04-30 20:00] VITALS: BP 115/63
--- NOTE | 2021-05-01 02:43 | NUR ---
PT CARE ASSUMED WITH PT IN BED RESTING.PT IS A/O X4.PT IS ON BEDREST AND Q2TURN AND REFUSED TURNING AT TIMES.WOUND DRESSING INTACT.PT ON LOW AIRLOSS MATTRESS.PT HAS EDEMA ON LEOBARDO AREA .PT HAS A COLOSTOMY AND MONTAGUE TO DD.WILL CONTINUE TO MONITOR
[2021-05-01 07:34] VITALS: BP 114/75
[2021-05-01 11:20] VITALS: BP 133/81
[2021-05-01 16:12] VITALS: BP 117/76
[2021-05-01 19:38] VITALS: BP 118/69
--- NOTE | 2021-05-02 02:36 | NUR ---
PT ALERT ABD ORIENTED X4. FOLLOWS COMMANDS. C/O PAIN TO WOUNDS ON BUTTOCKS. MEDICAED WITH OXYCODONE. PT IS SLEEPING. NO S/S PAIN. SHE REFUSED TO SLEEP O HER SIDE. WILL CONTINUE TO MONITOR PT FOR CHANGES. ALL WOUND CARE DONE BY DAY SHIFT NS.
[2021-05-02 03:27] VITALS: BP 120/70
--- NOTE | 2021-05-02 06:24 | NUR ---
PT RESTING QUIETLY AFTER OXYCODONE GIVEN FOR PAIN. COLOSTOMY REAPPLIED. PT HAS BEEN REFUSING TO TURN AND STATED SHE CANT GET COMFORTABLE ON HER SIDES.
[2021-05-02 07:23] VITALS: BP 135/81
[2021-05-02 11:07] VITALS: BP 127/80
[2021-05-02 14:54] LABS: HEMATOCRIT 21.2 % (37.0-47.0); HEMOGLOBIN 6.9 gm/dL (12.0-15.0)
[2021-05-02 14:55] LABS: ABSOLUTE NEUTROPHILS 4.6 thou/uL (1.4-8.2); BASOPHILS 0.7 % (0.0-2.0); EOSINOPHILS 1.4 % (0.0-3.0); LYMPHOCYTES 20.5 % (24.0-44.0); MCH 31.4 pg (26.0-34.0); MCHC 32.2 g/dL (28.0-37.0); MCV 97.3 fL (80.0-100.0); PLATELET COUNT 288 thou/uL (150-400); POLYS 69.4 % (36.0-66.0); RBC 2.18 mil/uL (4.20-5.00); RDW 18.6 % (10.5-14.5); WBC 6.7 thou/uL (4.0-11.0)
--- NOTE | 2021-05-02 15:10 | NUR ---
TOMASZ reviewed chart and spoke [facility] nursing and attending physician. Pt is progressing towards goals for discharge. Pt will need IV abx for 4 weeks per ID. TOMASZ faxed clinical updates to [facility] for review. Discussed with [facility] admissions liaison, Nevaeh. Will need therapy evals for SNF auth. PT/OT re-ordered today. TOMASZ met with pt at bedside to discuss discharge plan. Pt is aware and agreeable with plan. Pt was hoping to discharge to [facility] today. TOMASZ explained need for insurance auth for skilled care and that therapy will be coming to work with pt later today or tomorrow. Pt verbalized understanding. Pt updated her mother via phone. Awaiting therapy evals at this time. TOMASZ is following to assist as needed with discharge planning.
[2021-05-02 15:11] LABS: ALBUMIN 1.2 g/dL (3.4-5.0); CALCIUM 7.3 mg/dL (8.5-10.1); CREATININE 0.7 mg/dL (0.6-1.0); TOTAL BILIRUBIN 0.1 mg/dL (0.2-1.0); TOTAL PROTEIN 4.5 g/dL (6.4-8.2)
--- NOTE | 2021-05-02 16:06 | PATH ---
[facility] [address] [place] [address] PATHOLOGY RPT PROCEDURE Name: MARCO ANTOINE Room #: 359-P [facility] IN M.R.#: [id number] Admission: 04/27/21 Date of : 60 Discharge: Report #: [id number] Path Case #: [id number] [facility] Accession Number: [id number] . 01 Material submitted: . endometrium - ENDOMETRIAL CURETTINGS . 01 Clinical history: . HYSTEROSCOPY DILATION AND CURETTAGE ABNORMAL UTERINE BLEEDING . 01 Diagnosis: Endomyometrium "endometrial curettings": - Weakly proliferative endometrium with endomyometrial fragments without hyperplasia or malignancy. - See comment. ([facility]; 05/02/2021) [facility] 05/02/2021 1248 Local . 01 Comment: This case is co-reviewed with Dr. Octavio Watson. He agrees with the above diagnosis. ([facility]; 05/02/2021) . 01 Electronically signed: . Deonte Cardona MD, Pathologist NPI- [id number] . 01 Gross description: . Received in formalin labeled "Marco Antoine, endometrial curettings" is a 2.7 x 2.0 x 0.3 cm aggregate of israel-pink rubbery focally hemorrhagic soft tissue fragments. The specimen is submitted entirely in A1. ([facility]; 04/30/2021) [facility] 04/30/2021 1048 Local . 01 Pathologist provided ICD-10: N93.9 . 01 CPT . 341274 Specimen Comment: A courtesy copy of this report has been sent to [phone] Specimen Comment: [phone], Specimen Comment: Report sent to , DR GORE / DR SANDOVAL Performed at: 01 [place] [address] PATHOLOGY RPT PROCEDURE Name: MARCO ANTOINE Room #: 359-P ADM IN [facility].#: [id number] Admission: 04/27/21 Date of : 60 Discharge: Report #: [id number] Path Case #: [id number] [address] [address], [place], [place] [id number] MD Deonte Cardona MD Phone: [phone]
[2021-05-02 17:13] VITALS: BP 132/77
[2021-05-02 19:16] VITALS: BP 128/78
[2021-05-02 21:09] VITALS: BP 117/74; BP 121/70
--- NOTE | 2021-05-02 22:51 | NUR ---
PT ALERT AND ORIENTED X4. REORIENTED TO CORRECT DATE, PT IS MILDLY FORGETFUL. VSS AFEBRILE. BLOOD TRANSFUSION INFUSING ORDERED. NO S/S REACTION NOTED.
--- NOTE | 2021-05-02 22:56 | NUR ---
INFORMED PHARMACY VANC LEVEL 18. PHARMACIST STATED TO CONTINUE SAME DOSE AFER BLOOD TRANSFUSION IS COMPLETED.
[2021-05-03] VITALS (9 sets, daily range): BP systolic 103–138; BP diastolic 62–87
[2021-05-03 04:54] LABS: HEMATOCRIT 25.1 % (37.0-47.0); HEMOGLOBIN 8.2 gm/dL (12.0-15.0); MCH 31.1 pg (26.0-34.0); MCHC 32.7 g/dL (28.0-37.0); MCV 95.2 fL (80.0-100.0); RBC 2.63 mil/uL (4.20-5.00); RDW 18.7 % (10.5-14.5); WBC 6.7 thou/uL (4.0-11.0)
--- NOTE | 2021-05-03 08:38 | NUR ---
WOUND CARE COMPLETED AT 0400. MOD TO LG AMTS BLOODY DRAINAGE NOTED ON ALL WOUND EXCEPT STUMPS. MEDIATED WITH OXYCODONE FOR PAIN X2 LAST NIGHT WITH GOOD RELIEF OBTAINED. SHE SLEP MOST OF NIGHT. ENCOURAGED PT ALLOW STAFF TURN HER . SHE HAS BEEN NONCOMPLIANT. EXPLAINED WOUNDS WOULD NOT HEAL IF NO RELIEF OF PRESSURE. MILD AMT BLOODY DRAINAGE OTED FROM VAGINAL AREA ALSO TONIGHT, HG 8.2 AFTER RECEIVING 1 UNIT PRBCS LAS NIGHT. NO S/S TRANSFUSION REACTION NOTED.
--- NOTE | 2021-05-03 10:57 | NUR ---
WOUND CARE F/U; ROUNDING WITH DR VARNER, DR KHOURY AND SUSAN MANCIA NP. UPON TAKING THE DRESSING DOWN WE FOUND A LARGE AMOUNT OF BLEEDING FROM THE WOUNDS ON THE BACK, BILATERAL ISCHIUM WELL SACRUM. THERE WAS CLOTTING BUT THE BLEEDING HAD TO BE MANAGED WITH SILVER NITRATE AND SURGIFOAM WITH PRESSURE. AFTER THE BLEEDING WAS RESOLVED THE DRESSINGS WERE RE-APPLIED. DISCUSSED WITH JENY
--- NOTE | 2021-05-03 14:00 | NUR ---
TOMASZ reviewed chart and spoke with nursing and attending physician. Pt is progressing towards goals for discharge. TOMASZ faxed updated clinical and therapy evals to [facility] for review. Awaiting insurance auth at this time. TOMASZ notified [facility] admissions liaison of pt being ready for discharge. TOMASZ is following to assist as needed with discharge planning.
--- NOTE | 2021-05-03 18:47 | NUR ---
Pt A & O x4. Pt VS stable. Pt wounds had bleeding this shift and wound doctor and wound nurse notified. Pt had surgery this shift. PT is SR/ST on the tele. PT received medications as ordered and PRN medications as requested by pt. PT currently on 2L of 02 per nasal cannula post surgery. pt wound dressings changed by wound doctor this shift. pt is able to make needs known
[2021-05-03 20:05] LABS: HEMATOCRIT 20.2 % (37.0-47.0)
[2021-05-03 20:07] LABS: MCH 30.9 pg (26.0-34.0); MCHC 31.5 g/dL (28.0-37.0); PLATELET COUNT 343 thou/uL (150-400); RBC 2.06 mil/uL (4.20-5.00); RDW 18.8 % (10.5-14.5); WBC 15.7 thou/uL (4.0-11.0)
[2021-05-03 20:12] LABS: HEMOGLOBIN 6.3 gm/dL (12.0-15.0)
[2021-05-03 20:13] LABS: INR 1.11
--- NOTE | 2021-05-03 20:14 | NUR ---
LESA FROM LAB CALLED WITH CRITICAL RESULT FOR HgB OF 6.3. ALL APPROPRIATE PARTIES NOTIFIED.
[2021-05-03 21:26] LABS: ABSOLUTE NEUTROPHILS 14.1 thou/uL (1.4-8.2); ANISOCYTOSIS 2+; NUCLEATED RBCS 1 /100WBC
[2021-05-03 21:27] LABS: HYPOCHROMASIA SLIGHT; MACROCYTES FEW; POLYCHROMASIA OCCASIONAL
--- NOTE | 2021-05-04 00:47 | NUR ---
PT RESTING IN BED UPON ASSESSMENT. LAB DRAWN AND RESULT SENT TO LAB. HGB 6.3 ONCALL FIREWALL ENGINEER NOTIIFIED. ORDERS RECIEVED TO TRANSFUSE 1 UNIT OF BLOOD. PT NOTIFIED. BLOOD CURRENTLY INFUSING AND PT STABLE WILL CONT TO MONITOR. PT MOTHER CALLED UNIT EARLIER IN SHIFT AND NURSE UPDATED ON CARE. FOLLEY INTACT. FALL PREC IN PLACE. WILL CONT WITH POC TILL EOS.
[2021-05-04 03:42] VITALS: BP 114/70
[2021-05-04 06:24] LABS: HEMATOCRIT 19.3 % (37.0-47.0); HEMOGLOBIN 6.3 gm/dL (12.0-15.0)
[2021-05-04 07:23] VITALS: BP 114/62
[2021-05-04 08:04] VITALS: BP 125/72; BP 139/79
[2021-05-04 11:58] VITALS: BP 103/54
[2021-05-04 13:02] LABS: HEMATOCRIT 21.3 % (37.0-47.0); HEMOGLOBIN 7.1 gm/dL (12.0-15.0)
--- NOTE | 2021-05-04 13:05 | NUR ---
CARE ASSUMED THIS AM, PT ALERT AND ORIENTED X4, DENIES ANY CHEST PAIN, NAUSEA AND VOMITTING. GAVE PT 1 UNIT OF BLOOD THIS AM, NO REACTION NOTED. WOUND CARE DOCTOR ROUNDING, GAVE ORDERS TO NOT TAKE WOUND PICTURES TODAY AND NOT TO CHANGE DRESSING. PT REPOSITION EVERY EVERY 2 HOUR. DRESSING POST I AND D, IN PLACE, NO SIGNS OF BLESSING. FALL PRECAUTIONS IN PLACE, WILL CONTINE TO MONITOR.
--- NOTE | 2021-05-04 15:17 | NUR ---
TOMASZ reviewed chart and spoke with nursing and attending physician. Pt had blood transfusion today due to low hemoglobin. Pt remains on IV abx. Pt had excisional debridement yesterday of stage 4 right ischial decubitus ulcer. TOMASZ provided update to [facility] admissions liaison. Facility is still working on insurance authorization. Updates faxed to [facility] for review. TOMASZ is following to assist as needed with discharge planning.
[2021-05-04 16:17] VITALS: BP 110/60
[2021-05-04 19:27] VITALS: BP 105/59
--- NOTE | 2021-05-05 03:32 | NUR ---
PROGRESS PT A/O X 3. VSS, TELEMETRY INTACT READING SR/ST WITH RATES IN THE 90'S. ACCUCHECKS ACHS CONTINUE NO SSI REQUIRED. SKIN PALE DRY DRSG X 6 TO THORACIC SPINE, RIGHT AND LEFT ISCHIAL TUBEROSITY'S , SACRUM AND KENDRICK.STUMPS, INTACT WITH SCANT OLD SEROSANGUINOUS DRAINAGE. PT REPORTED PAIN AND OXYCODONE GIVEN AT HS WITH EFFECT PT SLEEPING AFTER. REPOSITIONED NEEDED. 3+ GENERALIZED EDEMA NOTED. MONTAGUE IN PLACE DRAINING CLEAR YELLOW URINE. COLOSTOMY BAG INTACT REPLACED ON DAY SHIFT, STOMA RED AND MOIST SMALL AMOUNT OF STOOL NOTED. IV ANTIBIOTICS ADMINISTERED ORDERED. CONTINUE POC.
[2021-05-05 03:40] VITALS: BP 96/55
[2021-05-05 07:05] LABS: ALBUMIN 1.1 g/dL (3.4-5.0); CALCIUM 7.1 mg/dL (8.5-10.1); CREATININE 0.8 mg/dL (0.6-1.0); PHOSPHORUS 4.3 mg/dL (2.5-4.9); POTASSIUM 4.7 mmol/L (3.5-5.1)
[2021-05-05 07:41] VITALS: BP 111/60
--- NOTE | 2021-05-05 11:16 | NUR ---
TOMASZ reviewed chart and spoke with nursing and attending physician. Pt is on IV abx. TOMASZ faxed clinical updates to [facility] for review. TOMASZ spoke with Billie in admissions at [facility] and also [facility], admissions liaison. Awaiting insurance authorization at this time. TOMASZ met with pt at bedside to provide update. Pt is agreeable with discharge plan. Pt will need stretcher van transportation. TOMASZ is following to assist as needed with discharge planning.
[2021-05-05 11:38] VITALS: BP 105/64
--- NOTE | 2021-05-05 13:29 | NUR ---
VAT TO ROOM TO ADMIN ALTEPLASE TO LEFT UPPER ARM PICC, FLUSHES BUT DOES NOT RETURN BLOOD. ALTEPLASE, 2MG/2.2ML STERILE WATER TO PICC LUMEN AT 1315. DRESSING CHANGED PER HOSPITAL VASCULAR ACCESS POLICY.
[2021-05-05] MEDS ORDERED: PERCOCET 10-321 EACH PO (14:01)
--- NOTE | 2021-05-05 16:06 | PATH ---
[facility] [address] [place] [address] PATHOLOGY RPT PROCEDURE Name: MARCO ANTOINE Room #: 359-P ADM IN M.R.#: [id number] Admission: 04/27/21 Date of : 60 Discharge: Report #: [id number] Path Case #: [id number] [facility] Accession Number: [id number] . 01 Material submitted: . ISCHIUM - EXCISIONAL DEBRIDEMENT AND HEMOSTASIS OF RIGHT ISCHEAL TUBEROSITY. Modifiers: right, TUBEROSITY . 01 Clinical history: . INCISION AND DRAINAGE SACRAL WOUND BILATERAL ICSHIAL TUBEROSITY WOUNDS . 02 Diagnosis: Right ischial tuberosity wound, debridement: - Fibrovascular adipose tissue with extensive acute and chronic inflammation, foreign body giant cell reaction, granulation tissue and fat necrosis. - Fibrinous exudate with necrotizing-type inflammation and calcifications also identified. - Negative for atypia or malignancy. (ANK/db; 05/05/2021) LBQ 05/05/2021 1044 Local . 02 Electronically signed: . Genevieve Bonilla MD, Pathologist NPI- [id number] . 01 Gross description: . The specimen is received in formalin, labeled "Marco Antoine, excisional debridement-and hemostasis of Rt. ischeal tuberosity" and consists of 4 vilma-brown to yellow rubbery irregular tissues aggregating 3.8 x 3.0 x 1.8 cm. Sectioning reveals fatty, hemorrhagic and necrotic cut surfaces without identifiable bone. Aromatherapist sections are submitted in A1-A2. ([place]; 05/04/2021) DKA/DKA 05/04/2021 1257 Local . 02 Pathologist provided ICD-10: L92.8 . 02 CPT . 441345 Specimen Comment: A courtesy copy of this report has been sent to [phone] Specimen Comment: [phone], Specimen Comment: Report sent to , DR JARVIS / DR MANDEL Performed at: 01 [place] [address] PATHOLOGY RPT PROCEDURE Name: MARCO ANTOINE Room #: 359-P ADM IN M.R.#: [id number] Admission: 04/27/21 Date of : 60 Discharge: Report #: [id number] Path Case #: [id number] [address] [facility] [address], [place] [id number] MD Deonte Cardona MD Phone: [phone] Performed at: [address] [id number] MD Ling Mosqueda MD Phone: [phone]
--- NOTE | 2021-05-05 16:31 | NUR ---
DISCHARGE ORDER IN, WOUND CARE DONE AND PICTURES TAKEN BY WOUND TEAM. PICC LINE AND FOILEY IN PLACE TO GO BACK TO [facility] DUE TO ANTIBIOTICS AND STAGE 4 WOUNDS. COLOSTOMY CHANGE. PAIN MED GIVEN PER PT REQUEST BEFORE LEAVING. TRANSPORTATION HERE FOR PT. REPORT GIVEN TO JENY VELASQUEZ. ALL PT BELONGINGS WITH PT
--- NOTE | 2021-05-09 22:00 | O ---
[facility] [place] [address] [place] [address] OPERATIVE REPORT Name: MARCO FOFANA Room #: 359-P [facility] IN M.R.#: [id number] Admission: 04/27/21 Attend Phys: Nahum Ramon MD Discharge: 05/05/21 Date of : 60 Report #: [id number] THIS REPORT FOR: cc: Ramón Almeida MD, Srinath MD Farris, Kari C. DO ~ DATE OF SERVICE: 04/29/2021 PREOPERATIVE DIAGNOSIS: Postmenopausal bleeding. POSTOPERATIVE DIAGNOSIS: Postmenopausal bleeding. OPERATIVE PROCEDURE: Pelvic exam under anesthesia, hysteroscopy, D and C with MyoSure. SURGEON: Loreto Varela DO ANESTHESIA: General. INTRAVENOUS FLUIDS: 250 mL. HYSTEROSCOPIC INPUT: 2500 mL. HYSTEROSCOPIC DEFICIT: 200 mL. COMPLICATIONS: None. SPECIMEN FOR PATHOLOGY: Endometrial curettings. DESCRIPTION OF PROCEDURE: The patient was taken to the operating room where general anesthesia was administered and found to be adequate. She was then prepped and draped in normal sterile fashion in dorsal lithotomy position. A bivalve speculum was placed in the patient's vagina. The cervix was identified and grasped with a single-tooth tenaculum. The cervix was then gently dilated with graduated Hegar dilators. The uterus was then gently sounded to approximately 9 cm using a 5.5-mm hysteroscope. The hysteroscope was placed through the cervix, gently advanced into the uterus and hysteroscopic evaluation was performed. It revealed a very linear uterine cavity and a denuded endometrium. Curettage was performed circumferentially using the MyoSure device [facility] [address] [place] [address] OPERATIVE REPORT Name: MARCO FOFANA Room #: 359-P DIS IN .R.#: [id number] Admission: 04/27/21 Attend Phys: Nahum Ramon MD Discharge: 05/05/21 Date of : 60 Report #: [id number] as the working channel of the hysteroscope. The MyoSure was then removed. The Hysteroscopic was removed from the patient's uterus and the tenaculum was removed from the patient's cervix. Excellent hemostasis was noted. All instruments were removed from the patient's vagina. Prior to hysteroscopy, survey of the patient's vaginal area, vaginal garcia, and cervix appeared normal anatomically as well as the vaginal mucosa appeared normal and cervix appeared normal without lesions with abnormal shape and contour. The patient tolerated the procedure well. Sponge and instrument counts were reported as correct. The patient was taken to the recovery room in stable condition. <ELECTRONICALLY SIGNED> By: Loreto Varela DO 05/09/21 2200 1141 1224 Loreto Varela DO /nt
== END 2021-05-05 16:45 | DRG 853 ==
LOC: ER 10:33 → 3W 16:29 → EROBS 16:29 → 3W 19:25
PROVIDERS: Emergency Medicine; Emergency Medicine Emergency Medical Services; Nurse Practitioner Family; Specialist; Student in an Organized Health Care Education/Training Program; ADMIT Internal Medicine; ATTEND Internal Medicine
PROC: 30233N1 Transfusion of Nonautologous Red Blood Cells into Peripheral Vein, Percutaneous Approach (ICD-10-PCS; principal; 2021-04-28)
PROC: 0UDB8ZZ Extraction of Endometrium, Via Natural or Artificial Opening Endoscopic (ICD-10-PCS; 2021-04-29)
PROC: 0JB90ZZ Excision of Buttock Subcutaneous Tissue and Fascia, Open Approach (ICD-10-PCS; 2021-05-03)
PROC: 3E03317 Introduction of Other Thrombolytic into Peripheral Vein, Percutaneous Approach (ICD-10-PCS; 2021-05-05)
DX: A41.9 Sepsis, unspecified organism (principal); L89.314 Pressure ulcer of right buttock, stage 4; E43 Unspecified severe protein-calorie malnutrition; L89.104 Pressure ulcer of unspecified part of back, stage 4; L89.324 Pressure ulcer of left buttock, stage 4; L89.154 Pressure ulcer of sacral region, stage 4; M46.28 Osteomyelitis of vertebra, sacral and sacrococcygeal region; N17.9 Acute kidney failure, unspecified; D62 Acute posthemorrhagic anemia; F11.20 Opioid dependence, uncomplicated; N92.4 Excessive bleeding in the premenopausal period; E03.9 Hypothyroidism, unspecified; M54.50 Low back pain, unspecified; M17.0 Bilateral primary osteoarthritis of knee; G89.4 Chronic pain syndrome; L98.419 Non-pressure chronic ulcer of buttock with unspecified severity; R53.81 Other malaise; E66.01 Morbid (severe) obesity due to excess calories; S70.322A Blister (nonthermal), left thigh, initial encounter; S70.321A Blister (nonthermal), right thigh, initial encounter; X58.XXXA Exposure to other specified factors, initial encounter; I10 Essential (primary) hypertension; F31.9 Bipolar disorder, unspecified; F41.9 Anxiety disorder, unspecified; E11.51 Type 2 diabetes mellitus with diabetic peripheral angiopathy without gangrene; J45.909 Unspecified asthma, uncomplicated; E11.69 Type 2 diabetes mellitus with other specified complication; D25.9 Leiomyoma of uterus, unspecified; F60.9 Personality disorder, unspecified; E11.40 Type 2 diabetes mellitus with diabetic neuropathy, unspecified; Z20.822 Contact with and (suspected) exposure to COVID-19; Z79.899 Other long term (current) drug therapy; Z88.0 Allergy status to penicillin; Z88.8 Allergy status to other drugs, medicaments and biological substances; Z88.1 Allergy status to other antibiotic agents; Z91.041 Radiographic dye allergy status; Z87.891 Personal history of nicotine dependence; Z68.39 Body mass index [BMI] 39.0-39.9, adult; Z93.3 Colostomy status; Z89.612 Acquired absence of left leg above knee; Z89.611 Acquired absence of right leg above knee; Y93.89 Activity, other specified; Y92.89 Other specified places as the place of occurrence of the external cause; Y99.8 Other external cause status; Z87.440 Personal history of urinary (tract) infections
CPT/HCPCS: 10879; 50010; 50101; 50386; 50403; 54171; 54172; 54173; 56526; 62110; 62900; 70005